=== PATIENT | female | born 1935 | race Caucasian/White ===

== ENCOUNTER 2017-01-20 14:22 | Emergency (ER) | payer OTHER ==
--- NOTE | 2017-01-20 15:55 | DIAGNOSTIC IMAGING REPORT ---
PROCEDURE: XR CHEST 2 VIEW INDICATION: CHEST PAIN TECHNIQUE: PA and lateral views. COMPARISON: Chest 08/08/2016 and 06/27/2016 FINDINGS: The cardiopulmonary contour and central vasculature are stable, within normal limits. The lungs are clear without focal consolidation, pleural effusion or pneumothorax. The interstitial markings are mildly coarse. There are surgical clips in the epigastric region. There is an old compression fracture of T12. IMPRESSION: 1. Cardiomegaly. No acute infiltrates.
--- NOTE | 2017-01-20 15:57 | DIAGNOSTIC IMAGING REPORT ---
PROCEDURE: XR THORACIC SPINE 3 VIEWS INDICATION: TRAUMA/INJURY TECHNIQUE: Three views. COMPARISON: None. FINDINGS: There is an old compression fracture of T12. No evidence of an acute process or fracture. IMPRESSION: 1. Old T12 compression fracture.
--- NOTE | 2017-01-20 18:30 | ED NURSING NOTES ---
Clinical Report - Nurses [facility] [address] [place] [address] 01/20/2017 14:23 Patient: TERI RAIMREZ TRIAGE Triage time 14:20. Acuity: LEVEL 3. Chief Complaint: FALL (Does not know what made her fall, no LOC, hit her mid back on a stool. Now c/o substernal chest pain). 14:36 01/20/17. SEPSIS SCREEN: Sepsis Screen. Negative (no infection suspected/documented). SOUTH COMA SCORE: [place] Coma Scale: 14- eyes open spontaneously (4); best verbal response- disoriented (4); best motor response- obeys commands (6). --14:42 Neil Read R.N. 14:26 01/20/17. BP: 131/81. HR: 102. RR: 20. O2 saturation: 94% on room air. Temp: 99.1 F (temporal). White-Calix pain scale: 6/10. Additional comments: BG= 118. --14:42 Neil Read R.N. Weight: 47.1 kg stated. Height/Length: 64 inches Per Patient. BMI: 17.8. --14:30 Neil Read R.N. Medications Nitroglycerin Translingual. --14:32 Neil Read R.N. Furosemide Oral. --14:32 Neil Read R.N. Warfarin Sodium Oral. --14:32 Neil Read R.N. Potassium Oral. --14:32 Neil Read R.N. Calcium + D Oral. --14:44 Neil Read R.N. Digoxin Oral (Tablet 125 mcg) 1 tablet, daily. MetFORMIN HCl Oral (Tablet 500 mg) 1/2 tablet, daily. Metoprolol Succinate ER Oral (Tablet Extended Release 24 Hour 50 mg) 1 tablet, am. Spiriva HandiHaler Inhalation, daily- (is taking twice a day most days). Vits, for eye bid. --14:45 Simbeck, Neil, R.N. Allergies Penicillin. --14:35 Neil Read R.N. Cortisone. --14:45 Neil Read R.N. History Arrived by EMS. Historian: EMS and patient. Location of injuries: mid-back. This occurred just prior to arrival. Occurred at home. Treatment INDIRECT SALES EXEC: None. Trauma activation: Pre-hospital notification of patient arrival was received. SOCIAL HX: Heavy tobacco smoker (cigarette)- less than 1 pack per day. No alcohol use or drug use. ABUSE ASSESSMENT: No report of abuse. --14:42 Neil Read R.N. PROBLEMS: GIB - ulcers. COPD - Chronic Obstructive Pulmonary Disease. Myocardial Infarction. Diverticulitis. Osteoporosis. CVA - Cerebrovascular Accident. Atrial Fibrillation. Congestive Heart Failure. --14:35 Neil Read R.N. Coumadin Toxicity. Atypical Chest Pain. Near Syncope. Arrhythmia. Syncope. [place]. Peptic Ulcer Disease. --14:43 Neil Read R.N. Diabetes Mellitus. --14:44 Neil Read R.N. ADDITIONAL SURGERIES: Appendectomy. Carpal Tunnel Surgery. Hysterectomy. Knee Surgery. --14:44 Neil Read R.N. Interventions ID band on patient. To treatment room. --14:42 Neil Read R.N. PHYSICAL ASSESSMENT 14:53 01/20/17. To room via stretcher. GENERAL / NEURO / PSYCH: Alert. Appears in pain and anxious. The patient is disoriented to person, place and situation. She has had weakness. HEENT: Pupils equal, round and reactive to light. Head non-tender. ( dry oral membranes). RESPIRATORY: Respirations not labored. Breath sounds within normal limits. ( epigastric and substernal chest pain). CVS: Cardiac rhythm: atrial fibrillation with rapid ventricular response. Pulses within normal limits. Capillary refill less than 2 seconds. GI / : Abdomen soft and nontender. EXTREMITIES: Limited ROM present. Neuro-vascular status intact to the extremity. SKIN: Skin is warm and dry. ( poor turgor, dry skin). --14:53 Neil Read R.N. NURSING PROGRESS NOTES 14:46 01/20/17. Cardiac rhythm: atrial fibrillation with rapid ventricular response. Patient gowned. Reassurance given. Call light placed in reach. Side rails up x 2. Bed placed in lowest position. Brakes of bed on. Patient ready for evaluation- chart flagged. ( family at bedside). --14:46 Neil Read R.N. EKG time: (14:47). EKG was performed by a tech and shown to the ED physician. --14:59 Violetta Landers 15:46 01/20/2017 GI COCKTAIL WHITE (Simethicone) PO Oral Suspension 50 mL given. Allergies verified and confirmed 5 rights. --15:46 Neil Read R.N. Checked patient name and birthdate: patient confirmed. Blood samples drawn from the right antecubital space with syringe and 23g butterfly by tech per protocol ; labeled in presence of the patient and sent to lab: rainbow set: cardiac enzymes (1st set). --15:55 Graeme Batista 17:46 01/20/2017 Protonix (Pantoprazole Sodium) PO Tablets 40 mg given. Allergies verified and confirmed 5 rights. --17:46 Kristin Alvarenga R.N. 17:48 01/20/2017 Carafate (Sucralfate) PO Oral Suspension 2 gm given. Allergies verified and confirmed 5 rights. --17:48 Kristin Alvarenga R.N. 18:34 01/20/17. ( Walk test done, Walked patient about 50 ft, while ambulating without walker she was slightly unsteady and required close supervision, with FWW she was much more steady and was safely ambulating. Patient has FWW walker in home to use and admits she does not use it at home. She states she will be more compliant now.). --18:34 Kristin Alvarenga R.N. DISPOSITION / DISCHARGE 18:51 01/20/17. Condition at departure: improved. No learning barriers present. Discharge instructions provided and reviewed with the patient and family. Reviewed medication(s) side effects and precautions information. Prescription(s) given to the patient. Activity restrictions reviewed (Note given to take it easy for the next couple days). Patient verbalized understanding. The patient was discharged by the physician. She was discharged home and accompanied by family. She left the Emergency Department ambulatory and via private vehicle. Family member driving. --18:51 Kristin Alvarenga R.N. 18:48 01/20/17. BP: 98/53 (regular adult cuff) taken on the right arm, while lying. HR: 65 (regular). RR: 20. O2 saturation: 97% on room air. Temp: 98 F (oral). Pain level now: 0/10. --18:51 Kristin Alvarenga R.N. Departure time: 18:54 Jan 20 2017. --18:54 Kristin Alvarenga R.N. Locked/Released at 01/20/2017 19:02 by Kristin Alvarenga R.N.
--- NOTE | 2017-01-20 18:30 | ED NURSING NOTES ---
Clinical Report - Nurses [facility] [address] [place] [address] 01/20/2017 14:23 Patient: TERI RAMIREZ TRIAGE Triage time 14:20. Acuity: LEVEL 3. Chief Complaint: FALL (Does not know what made her fall, no LOC, hit her mid back on a stool. Now c/o substernal chest pain). 14:36 01/20/17. SEPSIS SCREEN: Sepsis Screen. Negative (no infection suspected/documented). SOUTH COMA SCORE: [place] Coma Scale: 14- eyes open spontaneously (4); best verbal response- disoriented (4); best motor response- obeys commands (6). --14:42 Neil Read R.N. 14:26 01/20/17. BP: 131/81. HR: 102. RR: 20. O2 saturation: 94% on room air. Temp: 99.1 F (temporal). White-Calix pain scale: 6/10. Additional comments: BG= 118. --14:42 Neil Read R.N. Weight: 47.1 kg stated. Height/Length: 64 inches Per Patient. BMI: 17.8. --14:30 Neil Read R.N. Medications Nitroglycerin Translingual. --14:32 Neil Read R.N. Furosemide Oral. --14:32 Neil Read R.N. Warfarin Sodium Oral. --14:32 Neil Read R.N. Potassium Oral. --14:32 Neil Read R.N. Calcium + D Oral. --14:44 Neil Read R.N. Digoxin Oral (Tablet 125 mcg) 1 tablet, daily. MetFORMIN HCl Oral (Tablet 500 mg) 1/2 tablet, daily. Metoprolol Succinate ER Oral (Tablet Extended Release 24 Hour 50 mg) 1 tablet, am. Spiriva HandiHaler Inhalation, daily- (is taking twice a day most days). Vits, for eye bid. --14:45 Simbeck, Neil, R.N. Allergies Penicillin. --14:35 Neil Read R.N. Cortisone. --14:45 Neil Read R.N. History Arrived by EMS. Historian: EMS and patient. Location of injuries: mid-back. This occurred just prior to arrival. Occurred at home. Treatment STOGIE PACKER: None. Trauma activation: Pre-hospital notification of patient arrival was received. SOCIAL HX: Heavy tobacco smoker (cigarette)- less than 1 pack per day. No alcohol use or drug use. ABUSE ASSESSMENT: No report of abuse. --14:42 Neil Read R.N. PROBLEMS: GIB - ulcers. COPD - Chronic Obstructive Pulmonary Disease. Myocardial Infarction. Diverticulitis. Osteoporosis. CVA - Cerebrovascular Accident. Atrial Fibrillation. Congestive Heart Failure. --14:35 Neil Read R.N. Coumadin Toxicity. Atypical Chest Pain. Near Syncope. Arrhythmia. Syncope. [place]. Peptic Ulcer Disease. --14:43 Neil Read R.N. Diabetes Mellitus. --14:44 Neil Read R.N. ADDITIONAL SURGERIES: Appendectomy. Carpal Tunnel Surgery. Hysterectomy. Knee Surgery. --14:44 Neil Read R.N. Interventions ID band on patient. To treatment room. --14:42 Neil Read R.N. PHYSICAL ASSESSMENT 14:53 01/20/17. To room via stretcher. GENERAL / NEURO / PSYCH: Alert. Appears in pain and anxious. The patient is disoriented to person, place and situation. She has had weakness. HEENT: Pupils equal, round and reactive to light. Head non-tender. ( dry oral membranes). RESPIRATORY: Respirations not labored. Breath sounds within normal limits. ( epigastric and substernal chest pain). CVS: Cardiac rhythm: atrial fibrillation with rapid ventricular response. Pulses within normal limits. Capillary refill less than 2 seconds. GI / : Abdomen soft and nontender. EXTREMITIES: Limited ROM present. Neuro-vascular status intact to the extremity. SKIN: Skin is warm and dry. ( poor turgor, dry skin). --14:53 Neil Read R.N. NURSING PROGRESS NOTES 14:46 01/20/17. Cardiac rhythm: atrial fibrillation with rapid ventricular response. Patient gowned. Reassurance given. Call light placed in reach. Side rails up x 2. Bed placed in lowest position. Brakes of bed on. Patient ready for evaluation- chart flagged. ( family at bedside). --14:46 Neil Read R.N. EKG time: (14:47). EKG was performed by a tech and shown to the ED physician. --14:59 Violetta Landers 15:46 01/20/2017 GI COCKTAIL WHITE (Simethicone) PO Oral Suspension 50 mL given. Allergies verified and confirmed 5 rights. --15:46 Neil Read R.N. Checked patient name and birthdate: patient confirmed. Blood samples drawn from the right antecubital space with syringe and 23g butterfly by tech per protocol ; labeled in presence of the patient and sent to lab: rainbow set: cardiac enzymes (1st set). --15:55 Graeme Batista 17:46 01/20/2017 Protonix (Pantoprazole Sodium) PO Tablets 40 mg given. Allergies verified and confirmed 5 rights. --17:46 Kristin Alvarenga R.N. 17:48 01/20/2017 Carafate (Sucralfate) PO Oral Suspension 2 gm given. Allergies verified and confirmed 5 rights. --17:48 Kristin Alvarenga R.N. 18:34 01/20/17. ( Walk test done, Walked patient about 50 ft, while ambulating without walker she was slightly unsteady and required close supervision, with FWW she was much more steady and was safely ambulating. Patient has FWW walker in home to use and admits she does not use it at home. She states she will be more compliant now.). --18:34 Kristin Alvarenga R.N. DISPOSITION / DISCHARGE 18:51 01/20/17. Condition at departure: improved. No learning barriers present. Discharge instructions provided and reviewed with the patient and family. Reviewed medication(s) side effects and precautions information. Prescription(s) given to the patient. Activity restrictions reviewed (Note given to take it easy for the next couple days). Patient verbalized understanding. The patient was discharged by the physician. She was discharged home and accompanied by family. She left the Emergency Department ambulatory and via private vehicle. Family member driving. --18:51 Kristin Alvarenga R.N. 18:48 01/20/17. BP: 98/53 (regular adult cuff) taken on the right arm, while lying. HR: 65 (regular). RR: 20. O2 saturation: 97% on room air. Temp: 98 F (oral). Pain level now: 0/10. --18:51 Kristin Alvarenga R.N. Departure time: 18:54 Jan 20 2017. --18:54 Kristin Alvarenga R.N. Locked/Released at 01/20/2017 19:02 by Kristin Alvarenga R.N.
--- NOTE | 2017-01-20 18:30 | ED CLINICAL REPORT ---
Clinical Report - Physicians/Mid Levels [facility] [address] [place] [address] 01/20/2017 14:23 Patient: TERI RAMIREZ Time Seen: 14:27. Arrived- By private vehicle. Historian- patient. CPT: ER phys charges level 4 (#[id number]). HISTORY OF PRESENT ILLNESS Chief Complaint: INJURY TO MID- BACK. Location of injuries- mid back. The injury occurred just prior to arrival. Fell while standing and landed on the ground; tripped. Occurred at home. The patient complains of moderate pain. No blow to the head, neck pain or loss of consciousness. REVIEW OF SYSTEMS No numbness, dizziness, difficulty breathing, weakness or headache. No nausea, abdominal pain, laceration, fever or vomiting. She has had central chest pain but no pain on weight bearing. All systems otherwise negative, except as recorded above. PAST HISTORY See nurses notes. GIB - ulcers. COPD - Chronic Obstructive Pulmonary Disease. Myocardial Infarction. Diverticulitis. Osteoporosis. CVA - Cerebrovascular Accident. Atrial Fibrillation. Congestive Heart Failure. --14:35 Coumadin Toxicity. Atypical Chest Pain. Near Syncope. Arrhythmia. Syncope. [place]. Peptic Ulcer Disease. --14:43 Simbeck, Diabetes Mellitus. --14:44 ADDITIONAL SURGERIES: Appendectomy. Carpal Tunnel Surgery. Hysterectomy. Knee Surgery. Medications: Digoxin Oral (Tablet 125 mcg) 1 tablet, daily. MetFORMIN HCl Oral (Tablet 500 mg) 1/2 tablet, daily. Metoprolol Succinate ER Oral (Tablet Extended Release 24 Hour 50 mg) 1 tablet, am. Spiriva HandiHaler Inhalation, daily- (is taking twice a day most days). Vits, for eye bid. Calcium + D Oral. Potassium Oral. Warfarin Sodium Oral. Furosemide Oral. Nitroglycerin Translingual. Allergies: Cortisone. Penicillin. SOCIAL HISTORY Heavy tobacco smoker (cigarette)- less than 1 pack per day. No alcohol use or drug use. ADDITIONAL NOTES The nursing notes have been reviewed. PHYSICAL EXAM Vital Signs: 01/20/2017 14:26 BP: 131/81. HR: 102. RR: 20. O2 saturation: 94%. Temp: 99.1 F. White-Calix pain scale: 6/10. Appearance: Alert. Patient in mild distress. Head: Head non-tender. No swelling of head. Eyes: Pupils equal, round and reactive to light. ENT: Pharynx normal. Neck: Painless ROM. Non-tender. CVS: 1/6 brief systolic murmur. Pulses normal. Respiratory: Breath sounds normal. Chest nontender. Abdomen: Soft. Moderate tenderness in the epigastric area with guarding present. Bowel sounds normal. Back: Moderate vertebral point tenderness over the mid thoracic spine. Skin: Skin intact. Skin warm. Normal skin color. Extremities: Normal inspection. Pelvis stable. Extremities atraumatic. Neuro: Oriented X 3. No motor deficit. No sensory deficit. LABS, X-RAYS, AND EKG EKG: Rate: 110. Atrial fibrillation. Normal QRS complex. Normal axis. Non-specific ST segment / T wave abnormalities. Prior EKG unavailable. The study has been interpreted contemporaneously. The study has been independently viewed by me. The EKG appears to be a good tracing. X-Rays: Chest X-ray negative. T-Spine X-rays: Moderate wedge compression fracture of T12 (Old). Views: 2 view T-spine series. Technique: good. The X-rays were independently viewed by me and interpreted by the radiologist. PROGRESS AND PROCEDURES Course of Care: White GI cocktail : Chest and epigastric pain resolved. 17:25 01/20/17. Awaiting urine collection Pt passed walk test with walker. Patient/family counseled. Disposition: Discharged. Condition: stable. CLINICAL IMPRESSION Fall on same level by tripping. Chronic unsteady gait. Back pain due to fall. Chronic T-12 compression fracture. INSTRUCTIONS No strenuous activity. (Use walker at all times.). Warnings: GENERAL WARNINGS: Return or contact your physician immediately if your condition worsens or changes unexpectedly, if not improving as expected, or if other problems arise. Your Current Medications: CONTINUE TAKING THE FOLLOWING MEDICATIONS: Calcium + D Oral. Digoxin Oral : Tablet 125 mcg, 1 tablet daily. Furosemide Oral. MetFORMIN HCl Oral : Tablet 500 mg, 1/2 tablet daily. Metoprolol Succinate ER Oral : Tablet Extended Release 24 Hour 50 mg, 1 tablet am. Nitroglycerin Translingual. Potassium Oral. Spiriva HandiHaler Inhalation : daily-, is taking twice a day most days. Vits, for eye bid*. Warfarin Sodium Oral. Prescription Medications: Hydrocodone/APAP 5mg / 325mg: take 1 orally every 8 hours as needed for pain. Dispense ten (10). No refill. Follow-up: Follow up with your doctor in one week. Call for an appointment. Understanding of the discharge instructions verbalized by patient and family. Discharge instructions reviewed with and understanding was verbalized by patient and guardian (Daughter). (Electronically signed by Yossi Eubanks MD 01/20/2017 20:08)
--- NOTE | 2017-01-20 18:30 | ED ORDER SUMMARY ---
..... Patient: TERI RAMIREZ OrderSheet [facility] VisitID: [id number] [address] [place] [address] 81y, F Registration Date/Time: 01/20/2017 ORDER SHEET Weight: 47.1 kg (stated) Allergies: Penicillin, Cortisone GENERAL ORDERS: EKG - ER Stat (14:53 01/20/2017 LAYAimbeck R.N. per protocol) (14:53 JSimbeck R.N.) Thoracic Spine 3V Urgent (15:18 01/20/2017 Bailey MORALES) (Ack 15:23 Ricci) (15:47 LAYAimbeck R.N.) Chest 2V Urgent (15:18 01/20/2017 Bailey MORALES) (Ack 15:23 Ricci) (15:47 JSimbeck R.N.) CBC w Diff Urgent (15:18 01/20/2017 Bailey MORALES) (Ack 15:23 Ricci) (15:54 LTapper) CMP Urgent (15:18 01/20/2017 Bailey MORALES) (Ack 15:23 Ricci) (15:54 LTapper) UA-Culture if indicated Urgent (15:18 01/20/2017 Bailey MORALES) (Ack 15:23 Ricci) (15:54 LTapper) - (Walk test) (18:15 01/20/2017 Bailey MORALES) (18:35 JSanders R.N.) PT with INR Urgent (18:28 01/20/2017 Bailey MORALES) (Ack 18:41 Ricci) (19:02 JSanders R.N.) Digoxin Level Urgent (18:28 01/20/2017 Bailey MORALES) (Ack 18:41 Ricci) (19:02 JSanders R.N.) MEDICATION ORDERS: GI Cocktail WHITE PO 50 mL (NOW) (15:19 01/20/2017 Bailey MORALES) (15:46 JSimbeck R.N.) Carafate PO 20 ml (NOW) (17:25 01/20/2017 Bailey MORALES) (17:48 JSanders R.N.) Protonix PO 40 mg (NOW) (17:25 01/20/2017 Bailey MORALES) (17:46 Kelly Claire) IV FLUIDS: ORDER SHEET NOTES: [Electronically signed by Kristin Alvarenga R.N. (19:02 01/20/2017)] [Electronically signed by Yossi Eubakns MD (20:08 01/20/2017)] [Electronically locked/signed by Kristin Alvarenga R.N. (19:01/20/2017)]
--- NOTE | 2017-01-20 18:30 | ED CLINICAL REPORT ---
Clinical Report - Physicians/Mid Levels [facility] [address] [place] [address] 01/20/2017 14:23 Patient: TERI RAMIREZ Time Seen: 14:27. Arrived- By private vehicle. Historian- patient. CPT: ER phys charges level 4 (#[id number]). HISTORY OF PRESENT ILLNESS Chief Complaint: INJURY TO MID- BACK. Location of injuries- mid back. The injury occurred just prior to arrival. Fell while standing and landed on the ground; tripped. Occurred at home. The patient complains of moderate pain. No blow to the head, neck pain or loss of consciousness. REVIEW OF SYSTEMS No numbness, dizziness, difficulty breathing, weakness or headache. No nausea, abdominal pain, laceration, fever or vomiting. She has had central chest pain but no pain on weight bearing. All systems otherwise negative, except as recorded above. PAST HISTORY See nurses notes. GIB - ulcers. COPD - Chronic Obstructive Pulmonary Disease. Myocardial Infarction. Diverticulitis. Osteoporosis. CVA - Cerebrovascular Accident. Atrial Fibrillation. Congestive Heart Failure. --14:35 Coumadin Toxicity. Atypical Chest Pain. Near Syncope. Arrhythmia. Syncope. [place]. Peptic Ulcer Disease. --14:43 Simbeck, Diabetes Mellitus. --14:44 ADDITIONAL SURGERIES: Appendectomy. Carpal Tunnel Surgery. Hysterectomy. Knee Surgery. Medications: Digoxin Oral (Tablet 125 mcg) 1 tablet, daily. MetFORMIN HCl Oral (Tablet 500 mg) 1/2 tablet, daily. Metoprolol Succinate ER Oral (Tablet Extended Release 24 Hour 50 mg) 1 tablet, am. Spiriva HandiHaler Inhalation, daily- (is taking twice a day most days). Vits, for eye bid. Calcium + D Oral. Potassium Oral. Warfarin Sodium Oral. Furosemide Oral. Nitroglycerin Translingual. Allergies: Cortisone. Penicillin. SOCIAL HISTORY Heavy tobacco smoker (cigarette)- less than 1 pack per day. No alcohol use or drug use. ADDITIONAL NOTES The nursing notes have been reviewed. PHYSICAL EXAM Vital Signs: 01/20/2017 14:26 BP: 131/81. HR: 102. RR: 20. O2 saturation: 94%. Temp: 99.1 F. White-Calix pain scale: 6/10. Appearance: Alert. Patient in mild distress. Head: Head non-tender. No swelling of head. Eyes: Pupils equal, round and reactive to light. ENT: Pharynx normal. Neck: Painless ROM. Non-tender. CVS: 1/6 brief systolic murmur. Pulses normal. Respiratory: Breath sounds normal. Chest nontender. Abdomen: Soft. Moderate tenderness in the epigastric area with guarding present. Bowel sounds normal. Back: Moderate vertebral point tenderness over the mid thoracic spine. Skin: Skin intact. Skin warm. Normal skin color. Extremities: Normal inspection. Pelvis stable. Extremities atraumatic. Neuro: Oriented X 3. No motor deficit. No sensory deficit. LABS, X-RAYS, AND EKG EKG: Rate: 110. Atrial fibrillation. Normal QRS complex. Normal axis. Non-specific ST segment / T wave abnormalities. Prior EKG unavailable. The study has been interpreted contemporaneously. The study has been independently viewed by me. The EKG appears to be a good tracing. X-Rays: Chest X-ray negative. T-Spine X-rays: Moderate wedge compression fracture of T12 (Old). Views: 2 view T-spine series. Technique: good. The X-rays were independently viewed by me and interpreted by the radiologist. PROGRESS AND PROCEDURES Course of Care: White GI cocktail : Chest and epigastric pain resolved. 17:25 01/20/17. Awaiting urine collection Pt passed walk test with walker. Patient/family counseled. Disposition: Discharged. Condition: stable. CLINICAL IMPRESSION Fall on same level by tripping. Chronic unsteady gait. Back pain due to fall. Chronic T-12 compression fracture. INSTRUCTIONS No strenuous activity. (Use walker at all times.). Warnings: GENERAL WARNINGS: Return or contact your physician immediately if your condition worsens or changes unexpectedly, if not improving as expected, or if other problems arise. Your Current Medications: CONTINUE TAKING THE FOLLOWING MEDICATIONS: Calcium + D Oral. Digoxin Oral : Tablet 125 mcg, 1 tablet daily. Furosemide Oral. MetFORMIN HCl Oral : Tablet 500 mg, 1/2 tablet daily. Metoprolol Succinate ER Oral : Tablet Extended Release 24 Hour 50 mg, 1 tablet am. Nitroglycerin Translingual. Potassium Oral. Spiriva HandiHaler Inhalation : daily-, is taking twice a day most days. Vits, for eye bid*. Warfarin Sodium Oral. Prescription Medications: Hydrocodone/APAP 5mg / 325mg: take 1 orally every 8 hours as needed for pain. Dispense ten (10). No refill. Follow-up: Follow up with your doctor in one week. Call for an appointment. Understanding of the discharge instructions verbalized by patient and family. Discharge instructions reviewed with and understanding was verbalized by patient and guardian (Daughter). (Electronically signed by Yossi Eubanks MD 01/20/2017 20:08)
--- NOTE | 2017-01-20 18:30 | ED ORDER SUMMARY ---
..... Patient: TERI RAMIREZ OrderSheet [facility] VisitID: [id number] [address] [place] [address] 81y, F Registration Date/Time: 01/20/2017 ORDER SHEET Weight: 47.1 kg (stated) Allergies: Penicillin, Cortisone GENERAL ORDERS: EKG - ER Stat (14:53 01/20/2017 LAYAimbeck R.N. per protocol) (14:53 JSimbeck R.N.) Thoracic Spine 3V Urgent (15:18 01/20/2017 Bailey MORALES) (Ack 15:23 Ricci) (15:47 LAYAimbeck R.N.) Chest 2V Urgent (15:18 01/20/2017 Bailey MORALES) (Ack 15:23 Ricci) (15:47 JSimbeck R.N.) CBC w Diff Urgent (15:18 01/20/2017 Bailey MORALES) (Ack 15:23 Ricci) (15:54 LTapper) CMP Urgent (15:18 01/20/2017 Bailey MORALES) (Ack 15:23 Ricci) (15:54 LTapper) UA-Culture if indicated Urgent (15:18 01/20/2017 Bailey MORALES) (Ack 15:23 Ricci) (15:54 LTapper) - (Walk test) (18:15 01/20/2017 Bailey MORALES) (18:35 JSanders R.N.) PT with INR Urgent (18:28 01/20/2017 Bailey MORALES) (Ack 18:41 Ricci) (19:02 JSanders R.N.) Digoxin Level Urgent (18:28 01/20/2017 Bailey MORALES) (Ack 18:41 Ricci) (19:02 JSanders R.N.) MEDICATION ORDERS: GI Cocktail WHITE PO 50 mL (NOW) (15:19 01/20/2017 Bailey MORALES) (15:46 JSimbeck R.N.) Carafate PO 20 ml (NOW) (17:25 01/20/2017 Bailey MORALES) (17:48 JSanders R.N.) Protonix PO 40 mg (NOW) (17:25 01/20/2017 Bailey MORALES) (17:46 Kelly Claire) IV FLUIDS: ORDER SHEET NOTES: [Electronically signed by Kristin Alvarenga R.N. (19:02 01/20/2017)] [Electronically signed by Yossi Eubanks MD (20:08 01/20/2017)] [Electronically locked/signed by Kristin Alvarenga R.N. (19:01/20/2017)]
--- NOTE | 2017-01-20 20:08 | ED MED RECONCILIATION SUMMARY ---
Patient: TERI RAMIREZ Medication Reconciliation Report [facility] VisitID: [id number] [address] [place] [address] 81y, F Registration Date/Time: 01/20/2017 Weight: 47.1 kg Height/Length: 64 in. BMI: 17.8 ALLERGIES: Cortisone, Penicillin The patient's Home Medications are listed below: CONTINUE TAKING THE FOLLOWING MEDICATIONS: Calcium + D Oral Digoxin Oral (125 mcg) 1 tablet, daily Furosemide Oral MetFORMIN HCl Oral (500 mg) 1/2 tablet, daily Metoprolol Succinate ER Oral (50 mg) 1 tablet, am Nitroglycerin Translingual Potassium Oral Spiriva HandiHaler Inhalation, daily-, is taking twice a day most days Vits, for eye bid Warfarin Sodium Oral The source(s) of the original Home Medication information: Not obtained. The following Medications were given to the patient in the Emergency Department: GI COCKTAIL WHITE [PO] PO 50 mL, administered: 01/20/2017 3:46:00 PM Protonix [PO] PO 40 mg, administered: 01/20/2017 5:46:00 PM Carafate [PO] PO 2 gm, administered: 01/20/2017 5:48:00 PM The following Medications were prescribed to the patient: Hydrocodone/APAP 5mg / 325mg: take 1 orally every 8 hours as needed for pain. Dispense ten (10). No refill. -- Yossi Eubanks MD
--- NOTE | 2017-01-20 20:08 | ED MED RECONCILIATION SUMMARY ---
Patient: TERI RAMIREZ Medication Reconciliation Report [facility] VisitID: [id number] [address] [place] [address] 81y, F Registration Date/Time: 01/20/2017 Weight: 47.1 kg Height/Length: 64 in. BMI: 17.8 ALLERGIES: Cortisone, Penicillin The patient's Home Medications are listed below: CONTINUE TAKING THE FOLLOWING MEDICATIONS: Calcium + D Oral Digoxin Oral (125 mcg) 1 tablet, daily Furosemide Oral MetFORMIN HCl Oral (500 mg) 1/2 tablet, daily Metoprolol Succinate ER Oral (50 mg) 1 tablet, am Nitroglycerin Translingual Potassium Oral Spiriva HandiHaler Inhalation, daily-, is taking twice a day most days Vits, for eye bid Warfarin Sodium Oral The source(s) of the original Home Medication information: Not obtained. The following Medications were given to the patient in the Emergency Department: GI COCKTAIL WHITE [PO] PO 50 mL, administered: 01/20/2017 3:46:00 PM Protonix [PO] PO 40 mg, administered: 01/20/2017 5:46:00 PM Carafate [PO] PO 2 gm, administered: 01/20/2017 5:48:00 PM The following Medications were prescribed to the patient: Hydrocodone/APAP 5mg / 325mg: take 1 orally every 8 hours as needed for pain. Dispense ten (10). No refill. -- Yossi Eubanks MD
--- NOTE | 2017-01-20 20:08 | ED DISCHARGE INSTRUCTIONS ---
Patient: TERI RAMIREZ General Instructions [facility] VisitID: [id number] [address] [place] [address] 81y, F Registration Date/Time: 01/20/2017 Fall on same level by tripping. Chronic unsteady gait. Back pain due to fall. Chronic T-12 compression fracture. INSTRUCTIONS No strenuous activity. (Use walker at all times.). Warnings: GENERAL WARNINGS: Return or contact your physician immediately if your condition worsens or changes unexpectedly, if not improving as expected, or if other problems arise. Your Current Medications: CONTINUE TAKING THE FOLLOWING MEDICATIONS: Calcium + D Oral. Digoxin Oral : Tablet 125 mcg, 1 tablet daily. Furosemide Oral. MetFORMIN HCl Oral : Tablet 500 mg, 1/2 tablet daily. Metoprolol Succinate ER Oral : Tablet Extended Release 24 Hour 50 mg, 1 tablet am. Nitroglycerin Translingual. Potassium Oral. Spiriva HandiHaler Inhalation : daily-, is taking twice a day most days. Vits, for eye bid*. Warfarin Sodium Oral. Prescription Medications: Hydrocodone/APAP 5mg / 325mg: take 1 orally every 8 hours as needed for pain. Dispense ten (10). No refill. Follow-up: Follow up with your doctor in one week. Call for an appointment. Understanding of the discharge instructions verbalized by patient and family. Discharge instructions reviewed with and understanding was verbalized by patient and guardian (Daughter). ADDITIONAL INFORMATION Mechanical Fall You have had a fall today. It appears that the cause is mechanical. That means that you slipped, tripped or lost your balance. If your fall had been due to fainting or a seizure, further tests would be required. Home Care: Rest today and resume your normal activities when you are feeling back to normal. If you were injured during the fall, follow the advice from your doctor regarding care of your injury. You may use acetaminophen (Tylenol) or ibuprofen (Motrin, Advil) to control pain, unless another pain medicine was prescribed. [NOTE: If you have chronic liver or kidney disease or ever had a stomach ulcer or GI bleeding, talk with your doctor before using these medicines.] Fall Prevention: Was there anything that caused your fall that can be fixed, removed, or replaced? Make your home safe by keeping walkways clear of objects you may trip over. Use non-slip pads under rugs. Do not walk in poorly lit areas. Do not stand on chairs or wobbly ladders. Use caution when reaching overhead or looking upward. This position can cause a loss of balance. Be sure your shoes fit properly, have non-slip bottoms and are in good condition. Be cautious when going up and down curbs, and walking on uneven sidewalks. If your balance is poor, consider using a cane or walker. Stay as active as you can. Balance, flexibility, strength, and endurance all come from exercise. They all play a role in preventing falls. Follow Up with your doctor or as advised by our staff. Get Prompt Medical Attention if any of the following occur: Repeated mechanical falls, or unexplained falls Dizziness, fainting or seizure Severe headache Chest pain or shortness of breath Palpitations (very rapid or very slow or irregular heartbeat) Blood in vomit, stools (black or red color) Weakness of an arm or leg or one side of the face Difficulty with speech or vision Hydrocodone Bitartrate, Acetaminophen Oral tablet What is this medicine? ACETAMINOPHEN; HYDROCODONE (a set a STONEY malena fen; christiano droe KOE done) is a pain reliever. It is used to treat mild to moderate pain. How should I use this medicine? Take this medicine by mouth. Swallow it with a full glass of water. Follow the directions on the prescription label. If the medicine upsets your stomach, take the medicine with food or milk. Do not take more than you are told to take. Talk to your acquisition marketing coordinator regarding the use of this medicine in children. This medicine is not approved for use in children. What side effects may I notice from receiving this medicine? Side effects that you should report to your doctor or health palliative care nurse practitioner as soon as possible: allergic reactions like skin rash, itching or hives, swelling of the face, lips, or tongue breathing problems confusion feeling faint or lightheaded, falls stomach pain yellowing of the eyes or skin Side effects that usually do not require medical attention (report to your doctor or health palliative care nurse practitioner if they continue or are bothersome): nausea, vomiting stomach upset What may interact with this medicine? alcohol antihistamines isoniazid medicines for depression, anxiety, or psychotic disturbances medicines for sleep muscle relaxants naltrexone narcotic medicines (opiates) for pain phenobarbital ritonavir tramadol What if I miss a dose? If you miss a dose, take it as soon as you can. If it is almost time for your next dose, take only that dose. Do not take double or extra doses. Where should I keep my medicine? Keep out of the reach of children. This medicine can be abused. Keep your medicine in a safe place to protect it from theft. Do not share this medicine with anyone. Selling or giving away this medicine is dangerous and against the law. Store at room temperature between 15 and 30 degrees C (59 and 86 degrees F). Protect from light. Keep container tightly closed. Throw away any unused medicine after the expiration date. Discard unused medicine and used packaging carefully. Pets and children can be harmed if they find used or lost packages. What should I tell my health care provider before I take this medicine? They need to know if you have any of these conditions: brain tumor Crohn's disease, inflammatory bowel disease, or ulcerative colitis drink more than 3 alcohol-containing drinks per day drug abuse or addiction head injury heart or circulation problems kidney disease or problems going to the bathroom liver disease lung disease, asthma, or breathing problems an unusual or allergic reaction to acetaminophen, hydrocodone, other opioid analgesics, other medicines, foods, dyes, or preservatives or trying to get breast-feeding What should I watch for while using this medicine? Tell your doctor or health palliative care nurse practitioner if your pain does not go away, if it gets worse, or if you have new or a different type of pain. You may develop tolerance to the medicine. Tolerance means that you will need a higher dose of the medicine for pain relief. Tolerance is normal and is expected if you take the medicine for a long time. Do not suddenly stop taking your medicine because you may develop a severe reaction. Your body becomes used to the medicine. This does NOT mean you are addicted. Addiction is a behavior related to getting and using a drug for a non-medical reason. If you have pain, you have a medical reason to take pain medicine. Your doctor will tell you how much medicine to take. If your doctor wants you to stop the medicine, the dose will be slowly lowered over time to avoid any side effects. You may get drowsy or dizzy when you first start taking the medicine or change doses. Do not drive, use machinery, or do anything that may be dangerous until you know how the medicine affects you. Stand or sit up slowly. There are different types of narcotic medicines (opiates) for pain. If you take more than one type at the same time, you may have more side effects. Give your health care provider a list of all medicines you use. Your doctor will tell you how much medicine to take. Do not take more medicine than directed. Call emergency for help if you have problems breathing. The medicine will cause constipation. Try to have a bowel movement at least every 2 to 3 days. If you do not have a bowel movement for 3 days, call your doctor or health palliative care nurse practitioner. Too much acetaminophen can be very dangerous. Do not take Tylenol (acetaminophen) or medicines that contain acetaminophen with this medicine. Many non-prescription medicines contain acetaminophen. Always read the labels carefully. You have been given the following additional information: Fall, Mechanical Hydrocodone Bitartrate, Acetaminophen Oral tablet No strenuous activity. (Electronically signed by Yossi Eubanks MD 01/20/2017 20:08)
--- NOTE | 2017-01-20 20:08 | ED MAR SUMMARY ---
..... Medication Administration Record [facility] [address] [place] [address] Patient: TERI RAMIREZ Visit ID: [id number] 81y, F Weight: 47.1 kg Height/Length: 64 in BMI: 17.8 ALLERGIES: Penicillin, Cortisone Given 15:46 01/20/2017 Neil Read R.N. Medication Administered: GI COCKTAIL WHITE [PO] (SIMETHICONE), Dose: 50 mL Oral Suspension PO. Medication Ordered: GI Cocktail WHITE PO 50 mL (NOW). Given 17:46 01/20/2017 Kristin Alvarenga R.N. Medication Administered: PROTONIX [PO] (PANTOPRAZOLE SODIUM), Dose: 40 mg Tablets PO. Medication Ordered: Protonix PO 40 mg (NOW). Given 17:48 01/20/2017 Kristin Alvarenga R.N. Medication Administered: CARAFATE [PO] (SUCRALFATE), Dose: 2 gm Oral Suspension PO. Medication Ordered: Carafate PO 20 ml (NOW).
--- NOTE | 2017-01-20 20:08 | ED MAR SUMMARY ---
..... Medication Administration Record [facility] [address] [place] [address] Patient: TERI RAMIREZ Visit ID: [id number] 81y, F Weight: 47.1 kg Height/Length: 64 in BMI: 17.8 ALLERGIES: Penicillin, Cortisone Given 15:46 01/20/2017 Neil Read R.N. Medication Administered: GI COCKTAIL WHITE [PO] (SIMETHICONE), Dose: 50 mL Oral Suspension PO. Medication Ordered: GI Cocktail WHITE PO 50 mL (NOW). Given 17:46 01/20/2017 Kristin Alvarenga R.N. Medication Administered: PROTONIX [PO] (PANTOPRAZOLE SODIUM), Dose: 40 mg Tablets PO. Medication Ordered: Protonix PO 40 mg (NOW). Given 17:48 01/20/2017 Kristin Alvarenga R.N. Medication Administered: CARAFATE [PO] (SUCRALFATE), Dose: 2 gm Oral Suspension PO. Medication Ordered: Carafate PO 20 ml (NOW).
--- NOTE | 2017-01-20 20:08 | ED DISCHARGE INSTRUCTIONS ---
Patient: TERI RAMIREZ General Instructions [facility] VisitID: [id number] [address] [place] [address] 81y, F Registration Date/Time: 01/20/2017 Fall on same level by tripping. Chronic unsteady gait. Back pain due to fall. Chronic T-12 compression fracture. INSTRUCTIONS No strenuous activity. (Use walker at all times.). Warnings: GENERAL WARNINGS: Return or contact your physician immediately if your condition worsens or changes unexpectedly, if not improving as expected, or if other problems arise. Your Current Medications: CONTINUE TAKING THE FOLLOWING MEDICATIONS: Calcium + D Oral. Digoxin Oral : Tablet 125 mcg, 1 tablet daily. Furosemide Oral. MetFORMIN HCl Oral : Tablet 500 mg, 1/2 tablet daily. Metoprolol Succinate ER Oral : Tablet Extended Release 24 Hour 50 mg, 1 tablet am. Nitroglycerin Translingual. Potassium Oral. Spiriva HandiHaler Inhalation : daily-, is taking twice a day most days. Vits, for eye bid*. Warfarin Sodium Oral. Prescription Medications: Hydrocodone/APAP 5mg / 325mg: take 1 orally every 8 hours as needed for pain. Dispense ten (10). No refill. Follow-up: Follow up with your doctor in one week. Call for an appointment. Understanding of the discharge instructions verbalized by patient and family. Discharge instructions reviewed with and understanding was verbalized by patient and guardian (Daughter). ADDITIONAL INFORMATION Mechanical Fall You have had a fall today. It appears that the cause is mechanical. That means that you slipped, tripped or lost your balance. If your fall had been due to fainting or a seizure, further tests would be required. Home Care: Rest today and resume your normal activities when you are feeling back to normal. If you were injured during the fall, follow the advice from your doctor regarding care of your injury. You may use acetaminophen (Tylenol) or ibuprofen (Motrin, Advil) to control pain, unless another pain medicine was prescribed. [NOTE: If you have chronic liver or kidney disease or ever had a stomach ulcer or GI bleeding, talk with your doctor before using these medicines.] Fall Prevention: Was there anything that caused your fall that can be fixed, removed, or replaced? Make your home safe by keeping walkways clear of objects you may trip over. Use non-slip pads under rugs. Do not walk in poorly lit areas. Do not stand on chairs or wobbly ladders. Use caution when reaching overhead or looking upward. This position can cause a loss of balance. Be sure your shoes fit properly, have non-slip bottoms and are in good condition. Be cautious when going up and down curbs, and walking on uneven sidewalks. If your balance is poor, consider using a cane or walker. Stay as active as you can. Balance, flexibility, strength, and endurance all come from exercise. They all play a role in preventing falls. Follow Up with your doctor or as advised by our staff. Get Prompt Medical Attention if any of the following occur: Repeated mechanical falls, or unexplained falls Dizziness, fainting or seizure Severe headache Chest pain or shortness of breath Palpitations (very rapid or very slow or irregular heartbeat) Blood in vomit, stools (black or red color) Weakness of an arm or leg or one side of the face Difficulty with speech or vision Hydrocodone Bitartrate, Acetaminophen Oral tablet What is this medicine? ACETAMINOPHEN; HYDROCODONE (a set a STONEY malena fen; christiano droe KOE done) is a pain reliever. It is used to treat mild to moderate pain. How should I use this medicine? Take this medicine by mouth. Swallow it with a full glass of water. Follow the directions on the prescription label. If the medicine upsets your stomach, take the medicine with food or milk. Do not take more than you are told to take. Talk to your leather cartridge belt maker regarding the use of this medicine in children. This medicine is not approved for use in children. What side effects may I notice from receiving this medicine? Side effects that you should report to your doctor or health rn long term care as soon as possible: allergic reactions like skin rash, itching or hives, swelling of the face, lips, or tongue breathing problems confusion feeling faint or lightheaded, falls stomach pain yellowing of the eyes or skin Side effects that usually do not require medical attention (report to your doctor or health rn long term care if they continue or are bothersome): nausea, vomiting stomach upset What may interact with this medicine? alcohol antihistamines isoniazid medicines for depression, anxiety, or psychotic disturbances medicines for sleep muscle relaxants naltrexone narcotic medicines (opiates) for pain phenobarbital ritonavir tramadol What if I miss a dose? If you miss a dose, take it as soon as you can. If it is almost time for your next dose, take only that dose. Do not take double or extra doses. Where should I keep my medicine? Keep out of the reach of children. This medicine can be abused. Keep your medicine in a safe place to protect it from theft. Do not share this medicine with anyone. Selling or giving away this medicine is dangerous and against the law. Store at room temperature between 15 and 30 degrees C (59 and 86 degrees F). Protect from light. Keep container tightly closed. Throw away any unused medicine after the expiration date. Discard unused medicine and used packaging carefully. Pets and children can be harmed if they find used or lost packages. What should I tell my health care provider before I take this medicine? They need to know if you have any of these conditions: brain tumor Crohn's disease, inflammatory bowel disease, or ulcerative colitis drink more than 3 alcohol-containing drinks per day drug abuse or addiction head injury heart or circulation problems kidney disease or problems going to the bathroom liver disease lung disease, asthma, or breathing problems an unusual or allergic reaction to acetaminophen, hydrocodone, other opioid analgesics, other medicines, foods, dyes, or preservatives or trying to get breast-feeding What should I watch for while using this medicine? Tell your doctor or health rn long term care if your pain does not go away, if it gets worse, or if you have new or a different type of pain. You may develop tolerance to the medicine. Tolerance means that you will need a higher dose of the medicine for pain relief. Tolerance is normal and is expected if you take the medicine for a long time. Do not suddenly stop taking your medicine because you may develop a severe reaction. Your body becomes used to the medicine. This does NOT mean you are addicted. Addiction is a behavior related to getting and using a drug for a non-medical reason. If you have pain, you have a medical reason to take pain medicine. Your doctor will tell you how much medicine to take. If your doctor wants you to stop the medicine, the dose will be slowly lowered over time to avoid any side effects. You may get drowsy or dizzy when you first start taking the medicine or change doses. Do not drive, use machinery, or do anything that may be dangerous until you know how the medicine affects you. Stand or sit up slowly. There are different types of narcotic medicines (opiates) for pain. If you take more than one type at the same time, you may have more side effects. Give your health care provider a list of all medicines you use. Your doctor will tell you how much medicine to take. Do not take more medicine than directed. Call emergency for help if you have problems breathing. The medicine will cause constipation. Try to have a bowel movement at least every 2 to 3 days. If you do not have a bowel movement for 3 days, call your doctor or health rn long term care. Too much acetaminophen can be very dangerous. Do not take Tylenol (acetaminophen) or medicines that contain acetaminophen with this medicine. Many non-prescription medicines contain acetaminophen. Always read the labels carefully. You have been given the following additional information: Fall, Mechanical Hydrocodone Bitartrate, Acetaminophen Oral tablet No strenuous activity. (Electronically signed by Yossi Eubanks MD 01/20/2017 20:08)
== END 2017-01-20 18:54 | disposition home or self-care (01) ==
LOC: ED SRH 14:22
DX: M48.54XA Collapsed vertebra, not elsewhere classified, thoracic region, initial encounter for fracture (principal); R26.81 Unsteadiness on feet; Z91.81 History of falling; I48.91 Unspecified atrial fibrillation; I50.9 Heart failure, unspecified; E11.9 Type 2 diabetes mellitus without complications; J44.9 Chronic obstructive pulmonary disease, unspecified; I25.2 Old myocardial infarction; Z79.01 Long term (current) use of anticoagulants; Z79.899 Other long term (current) drug therapy
CPT/HCPCS: 90004; 90100; 93020; 94060; 95059

== ENCOUNTER 2017-02-19 10:55 | Observation (INO) | payer OTHER ==
[~2017-02-19] VITALS: Ht 167.6 cm; Wt 44.1 kg
--- NOTE | 2017-02-19 12:47 | DIAGNOSTIC IMAGING REPORT ---
PROCEDURE: CT HEAD WITHOUT CONTRAST INDICATION: WEAKNESS TECHNIQUE: Noncontrast axial images with sagittal and coronal reformations. COMPARISON: None. FINDINGS: Moderate cortical atrophy with mild white matter chronic ischemic changes. No evidence of an acute CVA, hemorrhage, mass or midline shift. Calcification of the vertebral and carotid arteries. No evidence of acute intracranial process. Visualized mastoids and sinuses are clear. IMPRESSION: 1. No acute intracranial abnormality 2. Moderate atrophy and mild white matter chronic ischemic changes. 3. Findings discussed with Dr. Gordon at 12:45 p.m., [place] Standard Time
--- NOTE | 2017-02-19 12:55 | DIAGNOSTIC IMAGING REPORT ---
PROCEDURE: XR CHEST 1 VIEW INDICATION: LETHARGY TECHNIQUE: Portable AP view 11:33 a.m. COMPARISON: Chest x-ray 01/20/2017 FINDINGS: Lungs are clear. Stable cardiomegaly. Pulmonary vascularity and mediastinum are normal. Surgical changes of the GE junction. Thorax is normal. No significant interval change. IMPRESSION: 1. Stable mild cardiomegaly.
--- NOTE | 2017-02-19 13:09 | ED NURSING NOTES ---
Clinical Report - Nurses [facility] [address] [place] [address] 02/19/2017 10:57 Patient: RITA RAMIREZ TRIAGE Triage time 10:59. Acuity: LEVEL 3. Chief Complaint: (weak and difficulty ambulating.). Alert (pt. seems alert but not oriented. States, " I need to go to the football game."). ( PER: daughter: deputy jailer called daughter because Rita has been very weak and not able to ambulate and seemed "lethargic." She recently was seen by her PCP who stated she was malnourished and dehydrated. She was sent home with vitamins and instructed to hydrate.). SEPSIS SCREEN: Sepsis Screen. Negative (no infection suspected/documented). SOUTH COMA SCORE: [place] Coma Scale: 14- eyes open spontaneously (4); best verbal response- disoriented (4); best motor response- obeys commands (6). --11:26 Valencia Robbins R.N. 10:59 02/19/17. BP: 104/56. HR: 86. RR: 20. O2 saturation: 98%. Temp: 97.5 F. Pain level now 0/10. --11:26 Valencia Robbins R.N. Weight: 36.2 kg estimated. Height/Length: 61 inches Estimated. BMI: 15.1. --11:23 Valencia Robbins R.N. Medications Calcium + D Oral. Digoxin Oral (Tablet 125 mcg) 1 tablet, daily. MetFORMIN HCl Oral (Tablet 500 mg) 1/2 tablet, daily. Metoprolol Succinate ER Oral (Tablet Extended Release 24 Hour 50 mg) 1 tablet, am. Nitroglycerin Translingual. Spiriva HandiHaler Inhalation, daily- (is taking twice a day most days). Vits, for eye bid. --11:27 Valencia Robbins R.N. Furosemide Oral 20 mg, daily. --11:28 Valencia Robbins R.N. Warfarin Sodium Oral 2.5 mg, daily. --11:28 Valencia Robbins R.N. Bausch and lomb. --11: Valencia Robbins R.N. Calcium chew 500mg x2 daily. --: Valencia Robbins R.N. Loratadine Oral 10 mg, daily. --: Valencia Robbins R.N. Allergies Cortisone. Penicillin. --11: Valencia Robbins R.N. History Arrived by private vehicle. Historian: patient. Accompanied by daughter. Primary physician (Dr. Guevara). ( Pt. appears confused states, "I'm bring the cows in, does she know when the milk comes in?"). Treatment MAPPING ENGINEER: None. PAST MEDICAL HX: Immunizations: up-to-date. SOCIAL HX: Heavy tobacco smoker (cigarette)- less than 1 pack per day. Alcohol use. (daughter states she is a recovering alcoholic and has not used for over 40 years). No drug use. No infectious disease exposure. ABUSE ASSESSMENT: No report of abuse. NUTRITIONAL RISK ASSESSMENT: The nutritional risk assessment revealed no deficiencies. LEARNING NEEDS ASSESSMENT: The learning needs assessment revealed no barriers. FUNCTIONAL ASSESSMENT: Functional assessment performed: requires assistance with the activities of daily living; uses wheelchair; cognitive impairment- Alzheimer's disease and senile dementia. -- Valencia Robbins R.N. PROBLEMS: Fall. Diabetes Mellitus. GIB - ulcers. COPD - Chronic Obstructive Pulmonary Disease. Myocardial Infarction. Diverticulitis. Osteoporosis. CVA - Cerebrovascular Accident. Atrial Fibrillation. Congestive Heart Failure. Coumadin Toxicity. Atypical Chest Pain. Near Syncope. Arrhythmia. Syncope. [place]. Peptic Ulcer Disease. --11: Valencia Robbins R.N. ADDITIONAL SURGERIES: Appendectomy. Carpal Tunnel Surgery. Hysterectomy. Knee Surgery. --11: Valencia Robbins R.N. Interventions ID band on patient. Transported via wheelchair. --: Valencia Robbins R.N. PHYSICAL ASSESSMENT 11:00. To room via wheelchair. GENERAL / NEURO / PSYCH: Alert. Appears in no acute distress. The patient is disoriented to person, place, time and situation. RESPIRATORY: Respirations not labored. SKIN: Skin is warm and dry. Generalized skin rash (present on arrival). --11:07 Valencia Robbins R.N. NURSING PROGRESS NOTES Patient gowned. Head of bed elevated. Two patient identifiers checked. Call light placed in reach. Side rails up x 2. Bed placed in lowest position. Brakes of bed on. Patient ready for evaluation- chart flagged. --11:07 Valencia Robbins R.N. Patient ID band checked for patient name, birthdate and medical record number: patient confirmed. Instructions provided to collect clean catch urine and patient verbalized understanding. Catheterized urine collected with return of yellow-colored clear urine; sample sent to lab for urinalysis. Specimen labeled in the presence of the patient (collected by SIDNEY Jaimes). --11:08 Valencia Robbins R.N. 11:25 02/19/2017 Site #1 started via IV in the left wrist with an 20g angiocath, with aseptic technique and good blood return; one attempt. Blood drawn: rainbow set. Labeled in the presence of the patient and sent to the lab. Saline lock flushed with 10 mL saline (accessed by SIDNEY Alfonso). --11:25 Valencia Robbins R.N. manager monitoring, pulse oximeter and NIBP monitor placed on patient; security monitor- Lead II; monitor alarms on. --11:26 Valencia Robbins R.N. ( PER daughter: pt. is DNR.). --11:32 Valencia Robbins R.N. Portable chest x-ray performed and shown to the ED physician. --11:35 Valencia Robbins R.N. EKG time: (1143). EKG was ordered, performed by a tech and shown to the ED physician. --11:45 Lynda Melendez 12:15 02/19/17. BP: 101/66. HR: 83. RR: 13. O2 saturation: 97%. --12:17 Valencia Robbins R.N. Family informed about reason for wait. --12:17 Valencia Robbins R.N. Patient transported to radiology by stretcher with tech. --12:24 Valencia Robbins R.N. 13:15 02/19/2017 Lasix IVP 10 mg given over 2 minute(s) via site #1. Allergies verified and confirmed 5 rights. IV patency established. IV site checked: no pain, redness, or swelling. IV flushed thoroughly pre- and post-medication administration. --13:15 Valencia Robbins R.N. DISPOSITION / DISCHARGE Report was given to a nurse via a phone call. Report included patient's care, treatment, medications, reviewed medication reconcilliation, and condition (including any recent changes or anticipated changes). All questions were answered. --13:52 Valencia Robbins R.N. Admitted to the Critical Care Unit. --13:52 Valencia Robbins R.N. 13:54 02/19/17. BP: 105/55. HR: 88. RR: 19. O2 saturation: 98%. Temp: 97.7 F. Pain level now 0/10. --13:54 Valencia Robbins R.N. Patient's personal items; items were placed in belongings bag, given to the patient and transported with the patient. --13:54 Valencia Robbins R.N. Departure time: 1400. --15:07 Valencia Robbins R.N. 14:00 02/19/2017 Site #[address] upon admission; patent, no pain and no signs of infiltration. No blood return present. Converted to saline lock and flushed with 10 mL saline; flushes easily. --15:08 Valencia Robbins R.N. Locked/Released at 02/19/2017 15:08 by Valencia Robbins R.N.
--- NOTE | 2017-02-19 13:09 | ED CLINICAL REPORT ---
Clinical Report - Physicians/Mid Levels [facility] [address] [place] [address] 02/19/2017 10:57 Patient: TERI RAMIREZ Time Seen: 11:03. Arrived- By private vehicle. Historian- patient and family. History limited by dementia. Physical Exam limited by dementia. HISTORY OF PRESENT ILLNESS Chief Complaint: WEAKNESS. At its maximum, severity described as severe. When seen in the E.D., severity described as severe. This started today and is still present. It was abrupt in onset and has been intermittent and waxing/waning. The patient has had fatigue and weakness. (The patient has a history of multiple medical issues. She currently resides alone and has a caregiver that comes for approximately 1 hour each day. She is accompanied today by her "daughter" - a dear friend who has power of real estate attorney for the patient. She reports that the caregiver contacted her this morning as she was unable to rouse the patient. Eventually she did get her to wake up enough to give her her medications. However, even with assistance she was not able to get the patient to stand. She also reports that the patient has had multiple falls recently. The patient doesn't knowledge having some shortness of breath. She denies chest pain.). REVIEW OF SYSTEMS No chills, fever, sweats, calf pain or chest pain. No cough, pedal edema, abdominal pain, constipation or diarrhea. No nausea or vomiting. She has had mild difficulty breathing and palpitations. She has had new onset of generalized weakness. All systems otherwise negative, except as recorded above. PAST HISTORY PCP - Paola. Problems: Fall. Diabetes Mellitus. GIB - ulcers. COPD - Chronic Obstructive Pulmonary Disease. Myocardial Infarction. Diverticulitis. Osteoporosis. CVA - Cerebrovascular Accident. Atrial Fibrillation. Congestive Heart Failure. Coumadin Toxicity. Atypical Chest Pain. Near Syncope. Arrhythmia. Syncope. [place]. Peptic Ulcer Disease. Additional Surgeries: Appendectomy. Carpal Tunnel Surgery. Hysterectomy. Knee Surgery. Medications: Loratadine Oral 10 mg, daily. Calcium chew 500mg x2 daily. Bausch and lomb. Warfarin Sodium Oral 2.5 mg, daily. Furosemide Oral 20 mg, daily. Calcium + D Oral. Digoxin Oral (Tablet 125 mcg) 1 tablet, daily. MetFORMIN HCl Oral (Tablet 500 mg) 1/2 tablet, daily. Metoprolol Succinate ER Oral (Tablet Extended Release 24 Hour 50 mg) 1 tablet, am. Nitroglycerin Translingual. Spiriva HandiHaler Inhalation, daily- (is taking twice a day most days). Vits, for eye bid. Allergies: Cortisone. Penicillin. SOCIAL HISTORY Current every day heavy tobacco smoker (cigarette)- less than 1 pack per day. Alcohol use. Patient is a recovering alcoholic. She lives alone. Has poor social support. FAMILY HISTORY No significant family medical history. ADDITIONAL NOTES The nursing notes have been reviewed. PHYSICAL EXAM Vital Signs: 02/19/2017 10:59 BP: 104/56. HR: 86. RR: 20. O2 saturation: 98%. Temp: 97.5 F. Have been reviewed. Appearance: Alert. She is disoriented and confused and appears frail, elderly and older than stated age. Eyes: Pupils equal, round and reactive to light. ENT: Pharynx normal. Neck: Normal inspection. Neck supple. CVS: Abnormal rhythm, which is irregularly irregular. Respiratory: No respiratory distress. Decreased air movement. Abdomen: No visible injury. Soft and nontender. Bowel sounds normal. No organomegaly. No mass. Femoral pulses equal. Back: (kyphotic). : Normal external exam. (female dredge runner present). Skin: Skin warm and dry. Pallor. Extremities: Extremities exhibit normal ROM. No calf tenderness. No lower extremity edema. Neuro: Altered mental status: confused and disoriented to place and time. Patient slow to respond. Inaccurate responses to questions and inconsistent responses to commands. Eyes open spontaneously. Best verbal response: disoriented. LABS, X-RAYS, AND EKG EKG: Rate: 90. Atrial fibrillation. Non-specific ST segment / T wave abnormalities. EKG unchanged when compared with prior EKG. (20 Jan 2017). The study has been independently viewed by me. Chest X-ray: (IMPRESSION: 1. Stable mild cardiomegaly.). The X-rays were interpreted by the radiologist and contemporaneously by me. CT Head: (IMPRESSION: 1. No acute intracranial abnormality 2. Moderate atrophy and mild white matter chronic ischemic changes.). The study was interpreted by the radiologist and contemporaneously by me. Laboratory Tests: UA-Culture if indicated: (MARIANN: 02/19/2017 11:20) ( [facility] 02/19/2017 11:40) Final results Test Result Flag Units (Reference) URINE COLOR YELLOW URINE APPEARANCE CLEAR URINE GLUCOSE NEGATIVE (NEGATIVE) URINE BILIRUBIN NEGATIVE (NEGATIVE) URINE KETONE NEGATIVE (NEGATIVE) URINE SPECIFIC GRAVITY <= 1.005 L (1.010-1.030) URINE PH 6.0 (5.0-8.0) URINE PROTEIN NEGATIVE (NEGATIVE) URINE UROBILINOGEN 0.2 EU/dL (0.2-1.0) URINE NITRITE NEGATIVE (NEGATIVE) URINE BLOOD 2+ (NEGATIVE) URINE LEUK ESTERASE NEGATIVE (NEGATIVE) URINE RBC 25-50 rbc/hpf (0-1) URINE WBC NONE SEEN wbc/hpf (0-1) URINE EPITHELIAL CELLS NONE SEEN EPI/hpf (0-5) URINE BACTERIA NONE SEEN (NONE SEEN) URINE COMMENT CULT NOT INDICATED 5-10 HYALINE CAST. 1-3 TRANSITIONAL EPITHELIAL CELLS. 1-3RENAL EPITHELIAL CELLS.URINE CULTURES ARE SET-UP BASED ON THE FOLLOWING CRITERIA:POSITIVE NITRITEPOSITIVE LEUKOCYTE ESTERASEGREATER THAN 10 WHITE BLOOD CELLSMODERATE (2+) OR GREATER BACTERIA CBC w Diff: (MARIANN: 02/19/2017 11:25) ( [facility] 02/19/2017 11:46) Final results Test Result Flag Units (Reference) WHITE BLOOD COUNT 8.6 K/uL (4.5-11.5) RED BLOOD COUNT 5.73 H M/uL (4.00-5.20) HEMOGLOBIN 13.1 gm/dL (12.0-16.0) HEMATOCRIT 43.7 % (36.0-46.0) MEAN CELL VOLUME 76 L fL (80-100) MEAN CORPUSCULAR HGB 23 L pg (26-34) MEAN CORPUSCULAR HGB CONC 30 L g/dL (31-37) RED CELL DISTRIBUTION WIDTH 19.8 H % (11.6-14.8) PLATELET COUNT 268 K/uL (150-400) NEUTROPHIL % 72.9 % (50-75) LYMPH % 17.1 L % (25-40) MONO % 7.7 % (3-14) EOSINOPHIL % 1.7 % (0-4) BASOPHIL % 0.6 % (0-2) PT with INR: (MARIANN: 02/19/2017 11:25) ( [facility] 02/19/2017 11:48) Final results Test Result Flag Units (Reference) INR 2.5 H (0.8-1.2) Low Intensity Therapy: INR 1.5-2.0 PT range 18.5-23.1Mod.Intensity Therapy: INR 2.0-3.0 PT range 23.1-31.5High Intensity Therapy: INR 2.5-3.5 PT range 27.4-35.5High Intensity Therapy 2: INR 3.0-4.0 PT range 31.5-39.3 APTT 42 H SECONDS (24-34) Digoxin Level: (MARIANN: 02/19/2017 11:25) ( [facility] 02/19/2017 12:03) Final results Test Result Flag Units (Reference) DIGOXIN 1.7 ng/mL (0.9-2.0) Urine Drug Screen: (MARIANN: 02/19/2017 11:20) ( [facility] 02/19/2017 11:52) Final results Test Result Flag Units (Reference) AMPHETAMINE/METHAMPHETAMINE NEGATIVE (NEGATIVE) BARBITURATE NEGATIVE (NEGATIVE) BENZODIAZEPINE NEGATIVE (NEGATIVE) CANNABINOID NEGATIVE (NEGATIVE) COCAINE NEGATIVE (NEGATIVE) ECSTASY NEGATIVE (NEGATIVE) METHADONE NEGATIVE (NEGATIVE) OPIATE NEGATIVE (NEGATIVE) The urine drug screen is a qualitative screening test fordrug overdose and abuse. All screen results should beconsidered as presumptive.Drugs screened for are as follows:BenzodiazepinesCocaineAmphetamines/MetamphetaminesTHC (Tetrahydrocannabinol)OpiatesBarbituratesEcstasyMethadonePositive results are unconfirmed. For confirmation, notifythe lab for the specimen to be sent to the reference lab.All confirmations must be performed by a differentmethodology.The ingestion of natural herbal and plant productscontaining Ephedra/Ephedra metabolites can produce in urineone or more substances capable of cross reacting withamphetamine/methamphetamine immunoassays. These testsprovide a preliminary result only. A more specificalternative chemical method must be used to obtain aconfirmed analytical result. BNP: (MARIANN: 02/19/2017 11:25) ( MsgRcvd 02/19/2017 12:04) Final results Test Result Flag Units (Reference) B-TYPE NATRIURETIC PEPTIDE 695 H pg/ml (5-100) CMP: (MARIANN: 02/19/2017 11:25) ( MsgRcvd 02/19/2017 12:11) Final results Test Result Flag Units (Reference) GLUCOSE 118 H mg/dL (70-110) BUN 31 H mg/dL (7-18) CREATININE 1.8 H mg/dL (0.6-1.3) Estimated GFR 28.70 mL/min Estimated GFR- 34.79 mL/min Note: Persistent reduction over 3 months in eGFR<60 mL/min/1.73 m2 defines CKD. Patients with eGFR values>=60 mL/min/1.73 m2 may also have CKD if evidence ofpersistent proteinuria. Additional information may be foundat www.kidney.org. SODIUM 140 mmol/L (136-145) POTASSIUM 4.9 mmol/L (3.5-5.1) CHLORIDE 103 mmol/L (98-107) CARBON DIOXIDE 29 mmol/L (21-32) CALCIUM 9.1 mg/dL (8.5-10.1) TOTAL PROTEIN 6.8 g/dL (6.4-8.2) ALBUMIN 3.5 g/dL (3.3-5.0) BILIRUBIN, TOTAL 0.6 mg/dL (0.0-1.0) ALKALINE PHOSPHATASE 73 U/L (46-116) AST (SGOT) 19 U/L (15-37) ALT (SGPT) 9 L U/L (12-78) LIPASE 103 U/L (73-393) AMYLASE 18 L U/L (25-115) CPK 53 U/L (24-260) TROPONIN I <0.05 L ng/mL (0.00-1.5) TROPONIN REFERENCE RANGE:<0.1 NEGATIVE0.1-1.5 INDETERMINANT>1.5 POSITIVE . PROGRESS AND PROCEDURES Course of Care: Patient is stable. Discussed case with hospitalist, (Tana). Reviewed test results and need for additional work-up. Agreed upon treatment plan. Health care provider will see patient in ED. Patient/family counseled. Old medical records reviewed. Disposition: Admitted. Observation. CLINICAL IMPRESSION Dementia. Acute generalized weakness. Congestive heart failure. Atrial fibrillation. Renal insufficiency. (Electronically signed by Javon Gordon MD 02/19/2017 14:07)
--- NOTE | 2017-02-19 13:09 | ED CLINICAL REPORT ---
Clinical Report - Physicians/Mid Levels [facility] [address] [place] [address] 02/19/2017 10:57 Patient: TERI RAMIREZ Time Seen: 11:03. Arrived- By private vehicle. Historian- patient and family. History limited by dementia. Physical Exam limited by dementia. HISTORY OF PRESENT ILLNESS Chief Complaint: WEAKNESS. At its maximum, severity described as severe. When seen in the E.D., severity described as severe. This started today and is still present. It was abrupt in onset and has been intermittent and waxing/waning. The patient has had fatigue and weakness. (The patient has a history of multiple medical issues. She currently resides alone and has a caregiver that comes for approximately 1 hour each day. She is accompanied today by her "daughter" - a dear friend who has power of employee benefits attorney for the patient. She reports that the caregiver contacted her this morning as she was unable to rouse the patient. Eventually she did get her to wake up enough to give her her medications. However, even with assistance she was not able to get the patient to stand. She also reports that the patient has had multiple falls recently. The patient doesn't knowledge having some shortness of breath. She denies chest pain.). REVIEW OF SYSTEMS No chills, fever, sweats, calf pain or chest pain. No cough, pedal edema, abdominal pain, constipation or diarrhea. No nausea or vomiting. She has had mild difficulty breathing and palpitations. She has had new onset of generalized weakness. All systems otherwise negative, except as recorded above. PAST HISTORY PCP - Paola. Problems: Fall. Diabetes Mellitus. GIB - ulcers. COPD - Chronic Obstructive Pulmonary Disease. Myocardial Infarction. Diverticulitis. Osteoporosis. CVA - Cerebrovascular Accident. Atrial Fibrillation. Congestive Heart Failure. Coumadin Toxicity. Atypical Chest Pain. Near Syncope. Arrhythmia. Syncope. [place]. Peptic Ulcer Disease. Additional Surgeries: Appendectomy. Carpal Tunnel Surgery. Hysterectomy. Knee Surgery. Medications: Loratadine Oral 10 mg, daily. Calcium chew 500mg x2 daily. Bausch and lomb. Warfarin Sodium Oral 2.5 mg, daily. Furosemide Oral 20 mg, daily. Calcium + D Oral. Digoxin Oral (Tablet 125 mcg) 1 tablet, daily. MetFORMIN HCl Oral (Tablet 500 mg) 1/2 tablet, daily. Metoprolol Succinate ER Oral (Tablet Extended Release 24 Hour 50 mg) 1 tablet, am. Nitroglycerin Translingual. Spiriva HandiHaler Inhalation, daily- (is taking twice a day most days). Vits, for eye bid. Allergies: Cortisone. Penicillin. SOCIAL HISTORY Current every day heavy tobacco smoker (cigarette)- less than 1 pack per day. Alcohol use. Patient is a recovering alcoholic. She lives alone. Has poor social support. FAMILY HISTORY No significant family medical history. ADDITIONAL NOTES The nursing notes have been reviewed. PHYSICAL EXAM Vital Signs: 02/19/2017 10:59 BP: 104/56. HR: 86. RR: 20. O2 saturation: 98%. Temp: 97.5 F. Have been reviewed. Appearance: Alert. She is disoriented and confused and appears frail, elderly and older than stated age. Eyes: Pupils equal, round and reactive to light. ENT: Pharynx normal. Neck: Normal inspection. Neck supple. CVS: Abnormal rhythm, which is irregularly irregular. Respiratory: No respiratory distress. Decreased air movement. Abdomen: No visible injury. Soft and nontender. Bowel sounds normal. No organomegaly. No mass. Femoral pulses equal. Back: (kyphotic). : Normal external exam. (female industrial methods consultant present). Skin: Skin warm and dry. Pallor. Extremities: Extremities exhibit normal ROM. No calf tenderness. No lower extremity edema. Neuro: Altered mental status: confused and disoriented to place and time. Patient slow to respond. Inaccurate responses to questions and inconsistent responses to commands. Eyes open spontaneously. Best verbal response: disoriented. LABS, X-RAYS, AND EKG EKG: Rate: 90. Atrial fibrillation. Non-specific ST segment / T wave abnormalities. EKG unchanged when compared with prior EKG. (20 Jan 2017). The study has been independently viewed by me. Chest X-ray: (IMPRESSION: 1. Stable mild cardiomegaly.). The X-rays were interpreted by the radiologist and contemporaneously by me. CT Head: (IMPRESSION: 1. No acute intracranial abnormality 2. Moderate atrophy and mild white matter chronic ischemic changes.). The study was interpreted by the radiologist and contemporaneously by me. Laboratory Tests: UA-Culture if indicated: (MARIANN: 02/19/2017 11:20) ( [facility] 02/19/2017 11:40) Final results Test Result Flag Units (Reference) URINE COLOR YELLOW URINE APPEARANCE CLEAR URINE GLUCOSE NEGATIVE (NEGATIVE) URINE BILIRUBIN NEGATIVE (NEGATIVE) URINE KETONE NEGATIVE (NEGATIVE) URINE SPECIFIC GRAVITY <= 1.005 L (1.010-1.030) URINE PH 6.0 (5.0-8.0) URINE PROTEIN NEGATIVE (NEGATIVE) URINE UROBILINOGEN 0.2 EU/dL (0.2-1.0) URINE NITRITE NEGATIVE (NEGATIVE) URINE BLOOD 2+ (NEGATIVE) URINE LEUK ESTERASE NEGATIVE (NEGATIVE) URINE RBC 25-50 rbc/hpf (0-1) URINE WBC NONE SEEN wbc/hpf (0-1) URINE EPITHELIAL CELLS NONE SEEN EPI/hpf (0-5) URINE BACTERIA NONE SEEN (NONE SEEN) URINE COMMENT CULT NOT INDICATED 5-10 HYALINE CAST. 1-3 TRANSITIONAL EPITHELIAL CELLS. 1-3RENAL EPITHELIAL CELLS.URINE CULTURES ARE SET-UP BASED ON THE FOLLOWING CRITERIA:POSITIVE NITRITEPOSITIVE LEUKOCYTE ESTERASEGREATER THAN 10 WHITE BLOOD CELLSMODERATE (2+) OR GREATER BACTERIA CBC w Diff: (MARIANN: 02/19/2017 11:25) ( [facility] 02/19/2017 11:46) Final results Test Result Flag Units (Reference) WHITE BLOOD COUNT 8.6 K/uL (4.5-11.5) RED BLOOD COUNT 5.73 H M/uL (4.00-5.20) HEMOGLOBIN 13.1 gm/dL (12.0-16.0) HEMATOCRIT 43.7 % (36.0-46.0) MEAN CELL VOLUME 76 L fL (80-100) MEAN CORPUSCULAR HGB 23 L pg (26-34) MEAN CORPUSCULAR HGB CONC 30 L g/dL (31-37) RED CELL DISTRIBUTION WIDTH 19.8 H % (11.6-14.8) PLATELET COUNT 268 K/uL (150-400) NEUTROPHIL % 72.9 % (50-75) LYMPH % 17.1 L % (25-40) MONO % 7.7 % (3-14) EOSINOPHIL % 1.7 % (0-4) BASOPHIL % 0.6 % (0-2) PT with INR: (MARIANN: 02/19/2017 11:25) ( [facility] 02/19/2017 11:48) Final results Test Result Flag Units (Reference) INR 2.5 H (0.8-1.2) Low Intensity Therapy: INR 1.5-2.0 PT range 18.5-23.1Mod.Intensity Therapy: INR 2.0-3.0 PT range 23.1-31.5High Intensity Therapy: INR 2.5-3.5 PT range 27.4-35.5High Intensity Therapy 2: INR 3.0-4.0 PT range 31.5-39.3 APTT 42 H SECONDS (24-34) Digoxin Level: (MARIANN: 02/19/2017 11:25) ( [facility] 02/19/2017 12:03) Final results Test Result Flag Units (Reference) DIGOXIN 1.7 ng/mL (0.9-2.0) Urine Drug Screen: (MARIANN: 02/19/2017 11:20) ( [facility] 02/19/2017 11:52) Final results Test Result Flag Units (Reference) AMPHETAMINE/METHAMPHETAMINE NEGATIVE (NEGATIVE) BARBITURATE NEGATIVE (NEGATIVE) BENZODIAZEPINE NEGATIVE (NEGATIVE) CANNABINOID NEGATIVE (NEGATIVE) COCAINE NEGATIVE (NEGATIVE) ECSTASY NEGATIVE (NEGATIVE) METHADONE NEGATIVE (NEGATIVE) OPIATE NEGATIVE (NEGATIVE) The urine drug screen is a qualitative screening test fordrug overdose and abuse. All screen results should beconsidered as presumptive.Drugs screened for are as follows:BenzodiazepinesCocaineAmphetamines/MetamphetaminesTHC (Tetrahydrocannabinol)OpiatesBarbituratesEcstasyMethadonePositive results are unconfirmed. For confirmation, notifythe lab for the specimen to be sent to the reference lab.All confirmations must be performed by a differentmethodology.The ingestion of natural herbal and plant productscontaining Ephedra/Ephedra metabolites can produce in urineone or more substances capable of cross reacting withamphetamine/methamphetamine immunoassays. These testsprovide a preliminary result only. A more specificalternative chemical method must be used to obtain aconfirmed analytical result. BNP: (MARIANN: 02/19/2017 11:25) ( MsgRcvd 02/19/2017 12:04) Final results Test Result Flag Units (Reference) B-TYPE NATRIURETIC PEPTIDE 695 H pg/ml (5-100) CMP: (MARIANN: 02/19/2017 11:25) ( MsgRcvd 02/19/2017 12:11) Final results Test Result Flag Units (Reference) GLUCOSE 118 H mg/dL (70-110) BUN 31 H mg/dL (7-18) CREATININE 1.8 H mg/dL (0.6-1.3) Estimated GFR 28.70 mL/min Estimated GFR- 34.79 mL/min Note: Persistent reduction over 3 months in eGFR<60 mL/min/1.73 m2 defines CKD. Patients with eGFR values>=60 mL/min/1.73 m2 may also have CKD if evidence ofpersistent proteinuria. Additional information may be foundat www.kidney.org. SODIUM 140 mmol/L (136-145) POTASSIUM 4.9 mmol/L (3.5-5.1) CHLORIDE 103 mmol/L (98-107) CARBON DIOXIDE 29 mmol/L (21-32) CALCIUM 9.1 mg/dL (8.5-10.1) TOTAL PROTEIN 6.8 g/dL (6.4-8.2) ALBUMIN 3.5 g/dL (3.3-5.0) BILIRUBIN, TOTAL 0.6 mg/dL (0.0-1.0) ALKALINE PHOSPHATASE 73 U/L (46-116) AST (SGOT) 19 U/L (15-37) ALT (SGPT) 9 L U/L (12-78) LIPASE 103 U/L (73-393) AMYLASE 18 L U/L (25-115) CPK 53 U/L (24-260) TROPONIN I <0.05 L ng/mL (0.00-1.5) TROPONIN REFERENCE RANGE:<0.1 NEGATIVE0.1-1.5 INDETERMINANT>1.5 POSITIVE . PROGRESS AND PROCEDURES Course of Care: Patient is stable. Discussed case with hospitalist, (Tana). Reviewed test results and need for additional work-up. Agreed upon treatment plan. Health care provider will see patient in ED. Patient/family counseled. Old medical records reviewed. Disposition: Admitted. Observation. CLINICAL IMPRESSION Dementia. Acute generalized weakness. Congestive heart failure. Atrial fibrillation. Renal insufficiency. (Electronically signed by Javon Gordon MD 02/19/2017 14:07)
--- NOTE | 2017-02-19 13:09 | ED NURSING NOTES ---
Clinical Report - Nurses [facility] [address] [place] [address] 02/19/2017 10:57 Patient: RITA RAMIREZ TRIAGE Triage time 10:59. Acuity: LEVEL 3. Chief Complaint: (weak and difficulty ambulating.). Alert (pt. seems alert but not oriented. States, " I need to go to the football game."). ( PER: daughter: cognos analyst called daughter because Rita has been very weak and not able to ambulate and seemed "lethargic." She recently was seen by her PCP who stated she was malnourished and dehydrated. She was sent home with vitamins and instructed to hydrate.). SEPSIS SCREEN: Sepsis Screen. Negative (no infection suspected/documented). SOUTH COMA SCORE: [place] Coma Scale: 14- eyes open spontaneously (4); best verbal response- disoriented (4); best motor response- obeys commands (6). --11:26 Valencia Robbins R.N. 10:59 02/19/17. BP: 104/56. HR: 86. RR: 20. O2 saturation: 98%. Temp: 97.5 F. Pain level now 0/10. --11:26 Valencia Robbins R.N. Weight: 36.2 kg estimated. Height/Length: 61 inches Estimated. BMI: 15.1. --11:23 Valencia Robbins R.N. Medications Calcium + D Oral. Digoxin Oral (Tablet 125 mcg) 1 tablet, daily. MetFORMIN HCl Oral (Tablet 500 mg) 1/2 tablet, daily. Metoprolol Succinate ER Oral (Tablet Extended Release 24 Hour 50 mg) 1 tablet, am. Nitroglycerin Translingual. Spiriva HandiHaler Inhalation, daily- (is taking twice a day most days). Vits, for eye bid. --11:27 Valencia Robbins R.N. Furosemide Oral 20 mg, daily. --11:28 Valencia Robbins R.N. Warfarin Sodium Oral 2.5 mg, daily. --11:28 Valencia Robbins R.N. Bausch and lomb. --11: Valencia Robbins R.N. Calcium chew 500mg x2 daily. --: Valencia Robbins R.N. Loratadine Oral 10 mg, daily. --: Valencia Robbins R.N. Allergies Cortisone. Penicillin. --11: Valencia Robbins R.N. History Arrived by private vehicle. Historian: patient. Accompanied by daughter. Primary physician (Dr. Guevara). ( Pt. appears confused states, "I'm bring the cows in, does she know when the milk comes in?"). Treatment JAVA ANALYST: None. PAST MEDICAL HX: Immunizations: up-to-date. SOCIAL HX: Heavy tobacco smoker (cigarette)- less than 1 pack per day. Alcohol use. (daughter states she is a recovering alcoholic and has not used for over 40 years). No drug use. No infectious disease exposure. ABUSE ASSESSMENT: No report of abuse. NUTRITIONAL RISK ASSESSMENT: The nutritional risk assessment revealed no deficiencies. LEARNING NEEDS ASSESSMENT: The learning needs assessment revealed no barriers. FUNCTIONAL ASSESSMENT: Functional assessment performed: requires assistance with the activities of daily living; uses wheelchair; cognitive impairment- Alzheimer's disease and senile dementia. -- Valencia Robbins R.N. PROBLEMS: Fall. Diabetes Mellitus. GIB - ulcers. COPD - Chronic Obstructive Pulmonary Disease. Myocardial Infarction. Diverticulitis. Osteoporosis. CVA - Cerebrovascular Accident. Atrial Fibrillation. Congestive Heart Failure. Coumadin Toxicity. Atypical Chest Pain. Near Syncope. Arrhythmia. Syncope. [place]. Peptic Ulcer Disease. --11: Valencia Robbins R.N. ADDITIONAL SURGERIES: Appendectomy. Carpal Tunnel Surgery. Hysterectomy. Knee Surgery. --11: Valencia Robbins R.N. Interventions ID band on patient. Transported via wheelchair. --: Valencia Robbins R.N. PHYSICAL ASSESSMENT 11:00. To room via wheelchair. GENERAL / NEURO / PSYCH: Alert. Appears in no acute distress. The patient is disoriented to person, place, time and situation. RESPIRATORY: Respirations not labored. SKIN: Skin is warm and dry. Generalized skin rash (present on arrival). --11:07 Valencia Robbins R.N. NURSING PROGRESS NOTES Patient gowned. Head of bed elevated. Two patient identifiers checked. Call light placed in reach. Side rails up x 2. Bed placed in lowest position. Brakes of bed on. Patient ready for evaluation- chart flagged. --11:07 aVlencia Robbins R.N. Patient ID band checked for patient name, birthdate and medical record number: patient confirmed. Instructions provided to collect clean catch urine and patient verbalized understanding. Catheterized urine collected with return of yellow-colored clear urine; sample sent to lab for urinalysis. Specimen labeled in the presence of the patient (collected by SIDNEY Jaimes). --11:08 Valencia Robbins R.N. 11:25 02/19/2017 Site #1 started via IV in the left wrist with an 20g angiocath, with aseptic technique and good blood return; one attempt. Blood drawn: rainbow set. Labeled in the presence of the patient and sent to the lab. Saline lock flushed with 10 mL saline (accessed by SIDNEY Alfonso). --11:25 Valencia Robbins R.N. hamper maker, pulse oximeter and NIBP monitor placed on patient; icing maker- Lead II; monitor alarms on. --11:26 Valencia Robbins R.N. ( PER daughter: pt. is DNR.). --11:32 Valencia Robbins R.N. Portable chest x-ray performed and shown to the ED physician. --11:35 Valencia Robbins R.N. EKG time: (1143). EKG was ordered, performed by a tech and shown to the ED physician. --11:45 Lynda Meelndez 12:15 02/19/17. BP: 101/66. HR: 83. RR: 13. O2 saturation: 97%. --12:17 Valencia Robbins R.N. Family informed about reason for wait. --12:17 Valencia Robbins R.N. Patient transported to radiology by stretcher with tech. --12:24 Valencia Robbins R.N. 13:15 02/19/2017 Lasix IVP 10 mg given over 2 minute(s) via site #1. Allergies verified and confirmed 5 rights. IV patency established. IV site checked: no pain, redness, or swelling. IV flushed thoroughly pre- and post-medication administration. --13:15 Valencia Robbins R.N. DISPOSITION / DISCHARGE Report was given to a nurse via a phone call. Report included patient's care, treatment, medications, reviewed medication reconcilliation, and condition (including any recent changes or anticipated changes). All questions were answered. --13:52 Valencia Robbins R.N. Admitted to the Critical Care Unit. --13:52 Valencia Robbins R.N. 13:54 02/19/17. BP: 105/55. HR: 88. RR: 19. O2 saturation: 98%. Temp: 97.7 F. Pain level now 0/10. --13:54 Valencia Robbins R.N. Patient's personal items; items were placed in belongings bag, given to the patient and transported with the patient. --13:54 Valencia Robbins R.N. Departure time: 1400. --15:07 Valencia Robbins R.N. 14:00 02/19/2017 Site #[address] upon admission; patent, no pain and no signs of infiltration. No blood return present. Converted to saline lock and flushed with 10 mL saline; flushes easily. --15:08 Valencia Robbins R.N. Locked/Released at 02/19/2017 15:08 by Valencia Robbins R.N.
--- NOTE | 2017-02-19 13:09 | ED ORDER SUMMARY ---
..... Patient: TERI RAMIREZ OrderSheet [facility] VisitID: [id number] [address] [place] [address] 81y, F Registration Date/Time: 02/19/2017 ORDER SHEET Weight: 36.2 kg (estimated) Allergies: Cortisone, Penicillin GENERAL ORDERS: Chest 1V Urgent (11:04 02/19/2017 Isaiah MORALES) (Ack 11:12 Ricci) (11:33 KWilliams R.N.) Technical Support Representative (Continuous) (11:04 02/19/2017 Isaiah MORALES) (11:32 SReitz R.N.) (11:33 KWilliams R.N.) CBC w Diff Urgent (11:02/19/2017 Isaiah MORALES) (Ack 11:12 Ricci) (11:32 SReitz R.N.) (11:33 KWilliams R.N.) CMP Urgent (11:02/19/2017 Isaiah MORALES) (Ack 11:12 Ricci) (11:32 SReitz R.N.) (11:33 KWilliams R.N.) UA-Culture if indicated Urgent (11:04 02/19/2017 Isaiah MORALES) (Ack 11:12 Ricci) (11:32 SReitz R.N.) (11:33 KWilliams R.N.) Amylase Urgent (11:02/19/2017 Isaiah MORALES) (Ack 11:12 Ricci) (11:33 SReitz R.N.) (11:33 KWilliams R.N.) Lipase Urgent (11:04 02/19/2017 Isaiah MORALES) (Ack 11:12 Ricci) (11:33 SReitz R.N.) (11:33 KWilliams R.N.) Urine Drug Screen Urgent (11:02/19/2017 Isaiah MORALES) (Ack 11:12 Ricci) (11:33 SReitz R.N.) (11:33 KWilliams R.N.) CPK Urgent (11:02/19/2017 Isaiah MORLAES) (Ack 11:12 Ricci) (11:33 SReitz R.N.) (11:33 KWilliams R.N.) Troponin-I Urgent (11:04 02/19/2017 Isaiah MORALES) (Ack 11:12 Ricci) (11:33 SReitz R.N.) (11:33 KWilliams R.N.) BNP Urgent (11:04 02/19/2017 Isaiah MORALES) (Ack 11:12 Ricci) (11:33 SReitz R.N.) (11:33 KWilliams R.N.) EKG - ER Stat (11:04 02/19/2017 Isaiah MORALES) (11:32 SReitz R.N.) Pulse oximeter (11:04 02/19/2017 Isaiah MORALES) (11:32 SReitz R.N.) (11:33 KWilliams R.N.) Vitals - Orthostatic (11:04 02/19/2017 Isaiah MORALES) (11:32 SReitz R.N.) PT with INR Urgent (11:11 02/19/2017 Isaiah MORALES) (Ack 11:13 Ricci) (11:33 SReitz R.N.) (11:33 KWilliams R.N.) PTT Urgent (11:11 02/19/2017 Isaiah MORALES) (Ack 11:13 Ricci) (11:33 SReitz R.N.) (11:33 KWilliams R.N.) Digoxin Level Urgent (11:11 02/19/2017 Isaiah MORALES) (Ack 11:13 Ricci) (11:33 SReitz R.N.) (11:33 KWilliams R.N.) CT Head wo Cont Urgent (12:16 02/19/2017 Isaiah MORALES) (Ack 12:20 Ricci) (13:15 SReitz R.N.) MEDICATION ORDERS: IV FLUIDS: IV Saline Lock (11:04 02/19/2017 Isaiah MORALES) (Ack 11:32 SReitz R.N.) (11:37 KWilliams R.N.) Lasix IV 10 mg (NOW) (13:08 02/19/2017 Isaiah MORALES) (Ack 13:09 SReitz R.N.) (13:15 SReitz R.N.) ORDER SHEET NOTES: [Electronically signed by Javon Gordon MD (14:07 02/19/2017)] [Electronically signed by Valencia Robbins R.N. (15:08 02/19/2017)] [Electronically locked/signed by Valencia Robbins R.N. (15:08 02/19/2017)]
--- NOTE | 2017-02-19 13:09 | ED ORDER SUMMARY ---
..... Patient: TERI RAMIREZ OrderSheet [facility] VisitID: [id number] [address] [place] [address] 81y, F Registration Date/Time: 02/19/2017 ORDER SHEET Weight: 36.2 kg (estimated) Allergies: Cortisone, Penicillin GENERAL ORDERS: Chest 1V Urgent (11:04 02/19/2017 Isaiah MORALES) (Ack 11:12 Ricci) (11:33 KWilliams R.N.) Mechanical Engineering Officer (Continuous) (11:04 02/19/2017 Isaiah MORALES) (11:32 SReitz R.N.) (11:33 KWilliams R.N.) CBC w Diff Urgent (11:02/19/2017 Isaiah MORALES) (Ack 11:12 Ricci) (11:32 SReitz R.N.) (11:33 KWilliams R.N.) CMP Urgent (11:02/19/2017 Isaiah MORALES) (Ack 11:12 Ricci) (11:32 SReitz R.N.) (11:33 KWilliams R.N.) UA-Culture if indicated Urgent (11:04 02/19/2017 Isaiah MORALES) (Ack 11:12 Ricci) (11:32 SReitz R.N.) (11:33 KWilliams R.N.) Amylase Urgent (11:02/19/2017 Isaiah MORALES) (Ack 11:12 Ricci) (11:33 SReitz R.N.) (11:33 KWilliams R.N.) Lipase Urgent (11:04 02/19/2017 Isaiah MORALES) (Ack 11:12 Ricci) (11:33 SReitz R.N.) (11:33 KWilliams R.N.) Urine Drug Screen Urgent (11:02/19/2017 Isaiah MORALES) (Ack 11:12 Ricci) (11:33 SReitz R.N.) (11:33 KWilliams R.N.) CPK Urgent (11:02/19/2017 Isaiah MORALES) (Ack 11:12 Ricci) (11:33 SReitz R.N.) (11:33 KWilliams R.N.) Troponin-I Urgent (11:04 02/19/2017 Isaiah MORALES) (Ack 11:12 Ricci) (11:33 SReitz R.N.) (11:33 KWilliams R.N.) BNP Urgent (11:04 02/19/2017 Isaiah MORALES) (Ack 11:12 Ricci) (11:33 SReitz R.N.) (11:33 KWilliams R.N.) EKG - ER Stat (11:04 02/19/2017 Isaiah MORALES) (11:32 SReitz R.N.) Pulse oximeter (11:04 02/19/2017 Isaiah MORALES) (11:32 SReitz R.N.) (11:33 KWilliams R.N.) Vitals - Orthostatic (11:04 02/19/2017 Isaiah MORALES) (11:32 SReitz R.N.) PT with INR Urgent (11:11 02/19/2017 Isaiah MORALES) (Ack 11:13 Ricci) (11:33 SReitz R.N.) (11:33 KWilliams R.N.) PTT Urgent (11:11 02/19/2017 Isaiah MORALES) (Ack 11:13 Ricci) (11:33 SReitz R.N.) (11:33 KWilliams R.N.) Digoxin Level Urgent (11:11 02/19/2017 Isaiah MORALES) (Ack 11:13 Ricci) (11:33 SReitz R.N.) (11:33 KWilliams R.N.) CT Head wo Cont Urgent (12:16 02/19/2017 Isaiah MORALES) (Ack 12:20 Ricci) (13:15 SReitz R.N.) MEDICATION ORDERS: IV FLUIDS: IV Saline Lock (11:04 02/19/2017 Isaiah MORALES) (Ack 11:32 SReitz R.N.) (11:37 KWilliams R.N.) Lasix IV 10 mg (NOW) (13:08 02/19/2017 Isaiah MORALES) (Ack 13:09 SReitz R.N.) (13:15 SReitz R.N.) ORDER SHEET NOTES: [Electronically signed by Javon Gordon MD (14:07 02/19/2017)] [Electronically signed by Valencia Robbins R.N. (15:08 02/19/2017)] [Electronically locked/signed by Valencia Robbins R.N. (15:08 02/19/2017)]
[2017-02-19 14:18] VITALS: BP 110/71
--- NOTE | 2017-02-19 15:09 | ED MAR SUMMARY ---
..... Medication Administration Record [facility] [address] [place] [address] Patient: TERI RAMIREZ Visit ID: [id number] 81y, F Weight: 36.2 kg Height/Length: 61 in BMI: 15.1 ALLERGIES: Cortisone, Penicillin Given 13:15 02/19/2017 Valencia Robbins R.N. Medication Administered: LASIX [IVP], Dose: 10 mg IVP over 2 minute(s), Site: #1 left wrist. Medication Ordered: Lasix IV 10 mg (NOW).
--- NOTE | 2017-02-19 15:09 | ED MED RECONCILIATION SUMMARY ---
Patient: TERI RAMIREZ Medication Reconciliation Report [facility] VisitID: [id number] [address] [place] [address] 81y, F Registration Date/Time: 02/19/2017 Weight: 36.2 kg Height/Length: 61 in. BMI: 15.1 ALLERGIES: Cortisone, Penicillin The patient's Home Medications are listed below: THE FOLLOWING MEDICATIONS NEED TO BE RECONCILED: Bausch and lomb Calcium + D Oral Calcium chew 500mg x2 daily Digoxin Oral (125 mcg) 1 tablet, daily Furosemide Oral 20 mg, daily Loratadine Oral 10 mg, daily MetFORMIN HCl Oral (500 mg) 1/2 tablet, daily Metoprolol Succinate ER Oral (50 mg) 1 tablet, am Nitroglycerin Translingual Spiriva HandiHaler Inhalation, daily-, is taking twice a day most days Vits, for eye bid Warfarin Sodium Oral 2.5 mg, daily The source(s) of the original Home Medication information: Not obtained. The following Medications were given to the patient in the Emergency Department: Lasix [IVP] IVP 10 mg, administered: 02/19/2017 1:15:00 PM The following Medications were prescribed to the patient: None.
--- NOTE | 2017-02-19 15:09 | ED DISCHARGE INSTRUCTIONS ---
Patient: TERI RAMIREZ General Instructions [facility] VisitID: [id number] [address] [place] [address] 81y, F Registration Date/Time: 02/19/2017 Dementia. Acute generalized weakness. Congestive heart failure. Atrial fibrillation. Renal insufficiency. (Electronically signed by Javon Gordon MD 02/19/2017 14:07)
--- NOTE | 2017-02-19 15:09 | ED MED RECONCILIATION SUMMARY ---
Patient: TERI RAMIREZ Medication Reconciliation Report [facility] VisitID: [id number] [address] [place] [address] 81y, F Registration Date/Time: 02/19/2017 Weight: 36.2 kg Height/Length: 61 in. BMI: 15.1 ALLERGIES: Cortisone, Penicillin The patient's Home Medications are listed below: THE FOLLOWING MEDICATIONS NEED TO BE RECONCILED: Bausch and lomb Calcium + D Oral Calcium chew 500mg x2 daily Digoxin Oral (125 mcg) 1 tablet, daily Furosemide Oral 20 mg, daily Loratadine Oral 10 mg, daily MetFORMIN HCl Oral (500 mg) 1/2 tablet, daily Metoprolol Succinate ER Oral (50 mg) 1 tablet, am Nitroglycerin Translingual Spiriva HandiHaler Inhalation, daily-, is taking twice a day most days Vits, for eye bid Warfarin Sodium Oral 2.5 mg, daily The source(s) of the original Home Medication information: Not obtained. The following Medications were given to the patient in the Emergency Department: Lasix [IVP] IVP 10 mg, administered: 02/19/2017 1:15:00 PM The following Medications were prescribed to the patient: None.
--- NOTE | 2017-02-19 15:09 | ED MAR SUMMARY ---
..... Medication Administration Record [facility] [address] [place] [address] Patient: TERI RAMIREZ Visit ID: [id number] 81y, F Weight: 36.2 kg Height/Length: 61 in BMI: 15.1 ALLERGIES: Cortisone, Penicillin Given 13:15 02/19/2017 Valencia Robbins R.N. Medication Administered: LASIX [IVP], Dose: 10 mg IVP over 2 minute(s), Site: #1 left wrist. Medication Ordered: Lasix IV 10 mg (NOW).
--- NOTE | 2017-02-19 15:09 | ED DISCHARGE INSTRUCTIONS ---
Patient: TERI RAMIREZ General Instructions [facility] VisitID: [id number] [address] [place] [address] 81y, F Registration Date/Time: 02/19/2017 Dementia. Acute generalized weakness. Congestive heart failure. Atrial fibrillation. Renal insufficiency. (Electronically signed by Javon Gordon MD 02/19/2017 14:07)
--- NOTE | 2017-02-19 16:40 | NUR ---
PT REFUSED TO HAVE HIS DRESSINGS CHANGED THIS AFTERNOON. I REMINDED THE PT THAT I AM HERE TO HELP HIM HEAL AND THAT IT IS IMPORTANT TO TAKE CARE OF HIS WOUNDS OR THEY WILL JUST GET WORSE AND HIS RESPONSE WAS, "MAYBE LATER."
[2017-02-19] MEDS ORDERED: ALENDRONATE SOD70 MG (17:26)
[2017-02-19] MEDS ORDERED: METOPROLOL SUCC50 MG PO (17:27)
[2017-02-19] MEDS ORDERED: DIGITEK0.125 MG PO (17:28)
[2017-02-19] MEDS ORDERED: FUROSEMIDE20 MG PO (17:28)
[2017-02-19] MEDS ORDERED: COUMADIN2.5 MG PO (17:29)
[2017-02-19] MEDS ORDERED: METFORMIN HCL500 MG PO (17:29)
[2017-02-19] MEDS ORDERED: SPIRIVA18 MCG INH (17:30)
[2017-02-19] MEDS ORDERED: PROAIR HFA IN (17:30)
[2017-02-19] MEDS ORDERED: CALCIUM500 M1 PO (17:32)
[2017-02-19] MEDS ORDERED: MULTIVITAMIN1 TAB PO (17:44)
[2017-02-19] MEDS ORDERED: [UNRECOGNIZED DRUG - OTHER] PO (17:47)
[2017-02-19 18:04] VITALS: BP 103/64
[2017-02-19] MEDS ORDERED: PRESERVISION/LUTEIN (18:06)
--- NOTE | 2017-02-19 18:27 | HISTORY AND PHYSICAL ---
ADMITTED: 02/19/2017 CHIEF COMPLAINT: 1. Weakness and inability to function appropriately at home HISTORY OF PRESENT ILLNESS: The patient is an 81-year-old white female who has developed problems with generalized weakness and decreased ability to function independently. She lives alone in an apartment and has a caregiver who comes in daily. Her caregiver found her in bed this morning and not being able to get up and ambulate around the apartment, and felt she was quite a bit weaker than normal. She may have been a little more confused than normal. She called the patient's daughter or granddaughter. The daughter or granddaughter drove to her apartment and brought her into the emergency department for evaluation. She has not seemed to have fever or chills, or any other new major problems. She did see her primary caregiver, Dr. Guevara, several weeks ago, who felt she was a little on the dehydrated side and encouraged her to drink a lot more liquids and eat quite a lot more. She has not had any recent falls. MEDICAL/SURGICAL HISTORY: Past medical history: Remarkable for ASCVD with history of ME occurring in 1989. She has had atrial fibrillation for quite some time. She also has had problems with adult-onset diabetes, longstanding COPD, remote mild stroke, and history of peptic ulcer disease. She has had a tendency towards osteoporosis as well. Past surgical history is remarkable for appendectomy, carpal tunnel surgery, hysterectomy, left knee surgery for a torn meniscus years ago. MEDICATIONS: Current medications include: 1. Digoxin 0.125 mg daily. 2. Warfarin 2.5 mg daily. 3. Metoprolol succinate 50 mg daily. 4. Nitroglycerin p.r.n. chest pain. 5. Spiriva HandiHaler 1 inhalation once daily. 6. Furosemide 20 mg daily. 7. Calcium tablets 500 mg twice daily. 8. Loratadine 10 mg daily for itching. ALLERGIES: INCLUDE: 1. PREDNISONE. 2. CORTISONE. 3. PENICILLIN. SOCIAL HISTORY: Indicates the patient is single presently. She was for a number of years. She was rather vague about what happened to her and when. She is a long-time smoker and has been smoking half a pack of cigarettes or somewhat less for the last several years. Prior to that, she was smoking a pack of cigarettes daily for at least 50 years. 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 She has worked various jobs and is rather vague about when she stopped working. 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 FAMILY HISTORY: Not really available as the patient does not remember her parents and believes that she was adopted when she was around age 2. REVIEW OF SYSTEMS: HEENT is okay. The patient does not remark any difficulties with her vision. Respiratory rate is okay when using her Spiriva. She has had no recent difficulties with her breathing. Cardiovascular: Okay with no chest pain or edema. Genitourinary: Okay with no problems passing urine and no blood in urine. Extremities: Show no edema or major complaints of joint pain. Neurological: Okay with no focal abnormalities. She does have some memory difficulties. Psychiatric: Has been okay. Skin: Remarkable for some itching. PHYSICAL EXAMINATION: GENERAL: Reveals the patient to be an elderly woman who is in no acute distress. VITAL SIGNS: Temperature is 97.3. Blood pressure is in the 110/71 range with irregularly irregular heart rhythm. Oxygen saturations 94% on room air. Pulse is in the 80- 90 range. HEENT: Head is normal. Ear canals and tympanic membranes are normal. Eyes show normal extraocular movements. Fundi are not well seen. Nose and throat are clear. Oral mucosa is somewhat dry. NECK: Supple without significant adenopathy. There are no distinct bruits. BREASTS: Show no masses. There is no axillary adenopathy. CHEST: Clear, with somewhat decreased breath sounds and I:E ratio of about 1:1. HEART: Reveals an irregularly irregular rhythm. S1 and S2 are normal. There is a grade 1/6 to 2/6 murmur along the left sternal border. There is a grade 2/6 murmur from the apex to the axilla. ABDOMEN: Nontender with no organomegaly or mass. Bowel tones are normal. PELVIC: Not done. RECTAL: Not done. EXTREMITIES: Show no edema. There are trace dorsalis pedis pulses, left and right. NEUROLOGIC: Reveals the patient to be alert and oriented x2. She is not at all sure of the date. She is not able to name the president, though she says she does not like the president. Cranial nerves are intact. There is no drift. Cbyidy-fa-sgiu testing is okay for age and ability to cooperate. SKIN: Shows a number of small scattered excoriations, particularly on the left posterior chest wall area, and lesser involvement of the left posterior chest wall, and lesser involvement of the anterior chest and abdominal wall skin. Extremities show no significant excoriations. LAB/IMAGING: Laboratory studies show white blood cell count to be 8600, hemoglobin is 13.1, hematocrit is 43.7. Pro time/INR is 2.5. Differential shows 73% polys and 17% lymphs. Sodium is 146, potassium 4.9, chloride 103, CO2 29, glucose 116, BUN 31, creatinine 1.8. SGOT is 19, SGPT is 9, lipase is 103, amylase is 18. CPK is 53, troponin I is less than 0.05. Total bilirubin is 0.6. Alkaline phosphatase is 73. Urinalysis shows specific gravity of less than 1.005. There is 2+ blood in the urine with 25-50 red blood cells per high-power field. Chest x-ray shows borderline cardiomegaly with no distinct infiltrate or mass. EKG shows atrial fibrillation with a rate in the 80s to 90s. There is poor R- wave progression. There are no major ST-segment elevations or depressions. There are some T inversions in III, aVF, and lead II. There are also some T inversions in V3 through V6. IMPRESSION: 1. The patient is presenting with weakness, cause is not clear. It is unclear whether she might have mild congestive heart failure which has now resolved or, perhaps, a low blood sugar problem that has resolved. 2. Other longstanding problems include chronic atrial fibrillation with history of arteriosclerotic cardiovascular heart disease. 3. Renal insufficiency, which may reflect an element of dehydration. 4. She has moderate chronic obstructive pulmonary disease with symptoms well controlled with the Spiriva. 5. She has significant memory difficulties, which may be a combination of multi -infarct dementia and Alzheimer's. 6. She is also showing some blood in her urine, which is asymptomatic. PLAN: The patient is admitted for observation. She will be started on very low- flow intravenous fluids for hydration to see if this will improve kidney function parameters. She will have Accu-Chek blood sugars checked before meals and at bedtime to see if she develops any hypoglycemia and to see if she truly needs to be on metformin at this point. She will be scheduled for physical therapy evaluation to assess general strength and ability to function at home. Also, discharge planning consult is ordered. She indicates that she is a NO CODE and would not want to be intubated. She has a POLST form at home. Either her daughter or granddaughter functions as her power of senior trial attorney and are aware and support her choices.
--- NOTE | 2017-02-19 20:19 | NUR ---
RESTING IN BED, ALERT, ORIENTED TO SELF AND PLACE. DENIES ANY DISCOMFORT AT THIS TIME. IVF INFUSING TO L WRIST. TELE AFIB, HR 81.
--- NOTE | 2017-02-19 20:58 | NUR ---
PATIENT LOOKING FOR HER DENTURES AND EYE GLASSES, NOT FOUND IN HER PLASTIC BELONGINGS. PER DAUGHTER LIDA THEY ARE HOME IN PATIENT'S APARTMENT AND WILL BRING TOMORROW.
[2017-02-19 22:49] VITALS: BP 95/55
[2017-02-20 02:07] VITALS: BP 98/54
[2017-02-20 06:50] VITALS: BP 87/49
[2017-02-20 06:58] VITALS: BP 91/59
--- NOTE | 2017-02-20 10:00 | NUR ---
PT ALERT/ORIENTED. DENIES PAIN, NAUSEA AT THIS TIME. UP IN CHAIR. VSS. WILL CONTINUE TO MONITOR.
[2017-02-20 10:12] VITALS: BP 133/93
[2017-02-20 14:16] VITALS: BP 99/55
--- NOTE | 2017-02-20 14:54 | Provider's Discharge Care Plan ---
Problem, Goal, Plan Problem List 1. Weakness generalized Instructions: - follow up with your primary care provider, - encourage PO intake, supplement food with nutritional supplements like Ensure 2. Dementia Instructions: - contact your primary care provider about starting dementia treatment
--- NOTE | 2017-02-20 14:57 | Discharge Summary ---
Discharge Summary Report Admit Date 02/19/17 Discharge Date 02/20/17 Admission Diagnosis weakness and decreased PO intake Discharge Diagnosis weakness, dehydration, altered mental status Brief History The patient is an 81-year-old white female who has developed problems with generalized weakness and decreased ability to function independently. She lives alone in an apartment and has a caregiver who comes in daily. Her caregiver found her in bed this morning and not being able to get up and ambulate around the apartment, and felt she was quite a bit weaker than normal. She may have been a little more confused than normal. She called the patient's daughter or granddaughter. The daughter or granddaughter drove to her apartment and brought her into the emergency department for evaluation. She has not seemed to have fever or chills, or any other new major problems. She did see her primary caregiver, Dr. Guevara, several weeks ago, who felt she was a little on the dehydrated side and encouraged her to drink a lot more liquids and eat quite a lot more. She has not had any recent falls. Hospital Course Patient as mentioned above was profoundly weak and lethargic upon arrival. Patients blood work and body fluids were sent for analysis which did not reveal any chronic condition except for evidence of low protein levels which can be attributed to decreaed po intake. Patient recieved fluids over the course of a day and her blood work remained stable. Patients mentation stabilized and was able to coverse at her baseline. Additionally patient worked with physical therapy, patient was seen to have excellent mobility, transfer abilities, and was able to walk and exceed requirements for assisted living/rehab. Given the lack of medical findings and improvement patient will have to be discharged home. We will provide home health aide and physical therapy. Patient will resume caregiver support. Additionally patient will follow up with her primary care provider in an effort to expediate assisted living options. General Appearance Alert, Cooperative, No acute distress Lungs Normal air movement Cardiovascular Normal S1, Normal S2 Abdomen Soft, No tenderness Neurological Normal speech, Normal tone, Sensation intact Psych/Mental Status Mood NL Lab/Imaging Laboratory Tests 02/20 02/20 02/20 02/20 0415 0415 0415 0415 Chemistry Plasma Sodium (136 - 145 mmol/L) 137 Plasma Potassium (3.5 - 5.1 mmol/L) 3.9 Plasma Chloride (98 - 107 mmol/L) 101 CO2 (Enzymatic) (21 - 32 mmol/L) 31 BUN (7 - 18 mg/dL) 32 Creatinine (0.6 - 1.3 mg/dL) 1.7 Est GFR ( Amer) (mL/min) 37.16 Est GFR (Non-Af Amer) (mL/min) 30.66 Glucose (70 - 110 mg/dL) 85 Hemoglobin A1c % (4.5 - 6.2 %) 6.5 Plasma Calcium (8.5 - 10.1 mg/dL) 8.3 Plasma Magnesium (1.8 - 2.4 mg/dL) 2.0 Creatine Kinase (24 - 260 U/L) 53 Troponin (0.00 - 1.5 ng/mL) <0.05 Free T4 Calculated (0.78 - 4.13 ng/dL) 0.97 Free T3 pg/mL (2.91 - 4.70 pg/mL) 1.7 TSH 3rd Generation (0.30 - 3.74 uIU/mL) 1.839 Hematology WBC (4.5 - 11.5 K/uL) 7.5 RBC (4.00 - 5.20 M/uL) 4.62 Hgb (12.0 - 16.0 gm/dL) 10.6 Hct (36.0 - 46.0 %) 35.4 MCV (80 - 100 fL) 77 MCH (26 - 34 pg) 23 RDW (11.6 - 14.8 %) 20.6 Neut % (Auto) (50 - 75 %) 67.1 Lymph % (Auto) (25 - 40 %) 22.3 [place] % (Auto) (3 - 14 %) 8.3 Eos % (Auto) (0 - 4 %) 2.1 Baso % (Auto) (0 - 2 %) 0.2 Plt Count, EDTA (150 - 400 K/uL) 210 RBC Morphology 1+ ANISOCYTOSIS PUBS MCHC (31 - 37 g/dL) 02/20 1017 Urines Urine Color YELLOW Urine Appearance CLEAR Urine pH (5.0 - 8.0) 6.0 Ur Specific [place] (1.010 - 1.030) 1.010 Urine Protein (NEGATIVE) NEGATIVE Urine Ketones (NEGATIVE) NEGATIVE Urine Blood (NEGATIVE) NEGATIVE Urine Nitrite (NEGATIVE) NEGATIVE Urine Bilirubin (NEGATIVE) NEGATIVE Urine Urobilinogen (0.2 - 1.0 EU/dL) 0.2 Ur Leukocyte Esterase (NEGATIVE) POSITIVE Urine RBC (0 - 1 rbc/hpf) 0-1 Urine WBC (0 - 1 wbc/hpf) 3-5 Ur Epithelial Cells (0 - 5 EPI/hpf) 3-5 Urine Bacteria (NONE SEEN) MODERATE (2+ TO 3+) Urine Glucose (NEGATIVE) NEGATIVE Microbiology Date/Time Procedure - Status Source Growth 02/19 1710 MRSA Screen - RECD NASAL Discharge Instructions/Meds - take medications as prescribed - follow up with your primary care doctor
--- NOTE | 2017-02-20 15:22 | NUR ---
NUTRITION NOTE: Pt admitted wiht dx/o CHF, A fib, dementia, renal insuff, gen weakness. Pt to d/c today. Spoke with pts daughter, doesnt eat because she most likely forgets and that things "dont taste good", generally no appetite. She does not like BOOST or Ensure and sometimes will take [employer] Breakfast Essentials with whole milk. Pt has a caregiver that comes in an hour a day, but daughter states that will likely be changing soon and she will be getting more help. Pts usual body weight was ~118# but unsure how long ago. Gave pt daughter a copy of high calorie high protein diet with a sample meal plan and recipes for high magda foods, puddings, etc. RD to follow up with complete assesment per protocol, avail for further consult prn.
--- NOTE | 2017-02-20 16:02 | NUR ---
PT DISCHARGED WITH DAUGHTER BACK TO ADULT FAMILY HOME. DISCHARGE INSTRUCTIONS GIVEN TO PT AND DAUGHTER. IV DC'D.
--- NOTE | 2017-02-20 16:03 | NUR ---
DAUGHTER HAD BROUGHT IN PT'S GLASSES AND DENTURES. BOTH WENT BACK HOME WITH PT.
== END 2017-02-20 15:50 | disposition home health service (06) ==
LOC: ED SRH 10:55 → CC SRH 13:12 → TRANS SRH 13:12 → CC SRH 14:00
PROVIDERS: ADMIT Emergency Medicine
DX: E86.0 Dehydration (principal); N28.9 Disorder of kidney and ureter, unspecified; R53.1 Weakness; R41.0 Disorientation, unspecified; F03.90 Unspecified dementia, unspecified severity, without behavioral disturbance, psychotic disturbance, mood disturbance, and anxiety; E11.9 Type 2 diabetes mellitus without complications; J44.9 Chronic obstructive pulmonary disease, unspecified; I48.2 Chronic atrial fibrillation; Z79.01 Long term (current) use of anticoagulants; F17.210 Nicotine dependence, cigarettes, uncomplicated; I25.10 Atherosclerotic heart disease of native coronary artery without angina pectoris; I21.3 ST elevation (STEMI) myocardial infarction of unspecified site
CPT/HCPCS: 81460; 83475; 90004; 90047; 90074; 90098; 90100; 90616; 90648; 91023; 91286; 91320; 91672; 92132; 92235; 92530; 92610; 92720; 92760; 92761; 92762; 92763; 92764; 92765; 92766; 92767; 93020; 93140; 94001; 94060; 95059

== ENCOUNTER 2017-03-30 12:09 | Inpatient (IN) | payer OTHER ==
[~2017-03-30] VITALS: Ht 167.6 cm; Wt 51.2 kg
[~2017-03-30 12:09] MED LIST: ALENDRONATE SOD70 MG; CALCIUM500 M1 PO; COUMADIN2.5 MG PO; DIGITEK0.125 MG PO; FUROSEMIDE20 MG PO; METFORMIN HCL500 MG PO; METOPROLOL SUCC50 MG PO; MULTIVITAMIN1 TAB PO; PRESERVISION/LUTEIN; PROAIR HFA IN; SPIRIVA18 MCG INH; [UNRECOGNIZED DRUG - OTHER] PO
--- NOTE | 2017-03-30 13:22 | DIAGNOSTIC IMAGING REPORT ---
PROCEDURE: XR CHEST 1 VIEW INDICATION: ALTERED MENTAL STATUS. A FIB WITH RVR PER HISTORY TECHNIQUE: Portable AP view (1230 hours). COMPARISON: Compared to chest x-ray and 02/19/2017. FINDINGS: Mild worsening in moderate cardiomegaly with pulmonary vascular congestion and mild interstitial changes/edema. Mediastinum is normal. Thorax is normal IMPRESSION: 1. Moderate cardiomegaly with mild to moderate congestive heart failure. 2. Findings discussed with Dr. Todd Moctezuma.
--- NOTE | 2017-03-30 16:32 | DIAGNOSTIC IMAGING REPORT ---
PROCEDURE: CT ABD/PELVIS WITH CONTRAST INDICATION: Right abdominal pain. Congestive heart failure. TECHNIQUE: 125 ml of Isovue 300 were injected intravenously and axial images were obtained of the entire abdomen and pelvis with sagittal and coronal reformations. Because of suboptimal enhancement (due to congestive failure), the patient was returned to CT for repeat axial images with sagittal and coronal re- formations (BUN 23, creatinine 1.2). COMPARISON: Compared to CT abdomen pelvis on 11/19/2012 and chest x-ray earlier in the day (03/30/2017). FINDINGS: ABDOMEN: Gallbladder is contracted with probable moderate wall thickening. Trace ascites. There is moderate cardiomegaly with mild basilar atelectasis and small pleural effusions. Liver, spleen, pancreas, kidneys, are normal. Marked calcified atheromatous changes aorta and mesenteric vessels, no evidence of aneurysm. Bowel pattern is normal. Appendix is not clearly identified, no evidence of inflammatory process. There is an 80% old compression fracture of T12 and 20% old compression fracture of L1. There are bilateral spondylolysis defects at L5 with grade 1 listhesis of L5 on S1. PELVIS: Moderate sigmoid diverticulosis, no evidence of diverticulitis of. Status post hysterectomy. Trace free fluid. IMPRESSION: 1. Moderate cardiomegaly with small pleural effusions consistent with congestive heart failure. 2. Contracted gallbladder with gallbladder wall thickening is nonspecific and may be related to congestive failure, low protein state, gallbladder disease, or ascites. 3. Trace abdominal and pelvic ascites. 4. Moderate sigmoid diverticulosis. No evidence of diverticulitis. 5. Status post hysterectomy. 6. Old compression fractures of the T2 and L1 vertebral bodies (stable). 7. 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 8. Findings discussed with Dr. Moctezuma. All CT scans at this facility use dose modulation, iterative reconstruction, and/or weight-based dosing when appropriate to reduce radiation dose to as low as reasonably achievable.
--- NOTE | 2017-03-30 18:04 | DIAGNOSTIC IMAGING REPORT ---
PROCEDURE: US ABDOMEN ULTRASOUND-LIMITED INDICATION: ABNORMAL CT SCAN FINDINGS WITH GB TECHNIQUE: Hanson scale and color Doppler sonographic images of the abdomen were obtained. COMPARISON: None. FINDINGS: There is moderate gallbladder wall thickening (3 mm). No evidence of gallstones. Small amount of ascites. Common duct is normal (4.8 mm). Portions of the liver, pancreas, and are normal. Right kidney is mildly atrophic (8.1 x 5.1 cm). IMPRESSION: 1. Moderate gallbladder wall thickening is nonspecific but most likely related to congestive heart failure or low protein state. 2. Small amount of ascites. 3. Mild atrophic change of the right kidney 4. Findings discussed with Dr. Todd Moctezuma.
--- NOTE | 2017-03-30 19:02 | Progress Note ---
Subjective General Admission History and Physical Examination Patient Name: Rita Butler Admission Date: March 30, 2017 Primary Care Provider: Kayden Guevara M.D. Attending Physician: Jose Juan Stallings M.D. Admitting Physician: Misael Galan M.D. Code Status: NO CODE Room: [facility] Status: Inpatient, CCU SUBJECTIVE Historian: Patient, Power Of Data Conversion Developer Reliability: Fair Chief Complaint: Shortness of breath, rapid heart rate, weakness History of Present Illness: The patient is a 82-year-old single white female with a significant past medical history of coronary artery disease status post myocardial infarction, peptic ulcer disease, atrial fibrillation, chronic anticoagulation, COPD, adult-onset diabetes mellitus, cerebrovascular disease status post CVA, who presented to [facility] emergency room on the day of admission secondary to complaints of generalized weakness, shortness of breath, and rapid heart rate. [facility] ER evaluation was consistent with atrial fibrillation with rapid ventricular response heart rate 140/m, CHF, exacerbation of COPD, and anemia. Secondary to the above, the patient was admitted by Misael Galan M.D. for further evaluation and treatment. PAST MEDICAL HISTORY Illnesses: 1. Coronary disease status post myocardial infarction 2. CHF 3. COPD 4. Nicotine dependence-smoking 5. Chronic anticoagulation 6. Diabetes mellitus type 2 7. Peptic ulcer disease 8. Osteoporosis Allergies: 1. Prednisone 2. Penicillin Medications: 1. Toprol-XL 50 mg 1 by mouth daily 2. Lasix 20 mg by mouth daily 3. Coumadin 2.5 mg by mouth daily 4. Spiriva one inhalation daily 5. Metformin 250 mg by mouth every morning 6. Pro-air HFA 1-2 inhalations every 6 hours when necessary shortness of breath Surgery: 1. Peptic ulcer disease 1976 2. Appendectomy 1949 3. Carpal tunnel surgery 4. Hysterectomy 5. Left knee surgery secondary to torn meniscus Injuries: 1. Torn meniscus left knee Hospitalizations: 1. For above surgery and medical problems FAMILY HISTORY Parents: 1. Father, unknown, patient adopted 2. Mother, unknown, patient adopted Siblings: 1. The patient has 3 male siblings one of which is history unknown Children: 1. Male, Humza, , 55, cause unknown 2. Male, Yoseph, living, 61, healthy 3. Female, Arleen, living, 59, healthy Other significant family history: None SOCIAL HISTORY 1. Marital Status: Single 2. Roman Catholic: Jew 3. Education: GED with 3 years of college with AA degree in law enforcement 4. 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 Occupational health exposures: None HABITS 1. Tobacco: Cigarettes-150 pack years, continues to smoke 2 cigarettes per day 2. Drugs: None 3. Alcohol: None 4. Caffeine: None HEALTH SUPERVISION Item/Test 1. Not reviewed IMMUNIZATIONS: 1. Pneumococcal: Unknown 2. Influenza: Unknown 3. Tetanus: Unknown ADVANCED DIRECTIVES: 1. Living well: Yes 2. POLST: Yes 3. Code Status: NO CODE 4. Durable Power Data Conversion Developer Health care: Yes 5. Donor card: No REVIEW OF SYSTEMS Remarkable for those things stated in the history of present illness and past medical history. Seventeen point review of system completed with the following notable findings: General: Fatigue, pain, weakness Skin: Rashes/itching, dryness Eyes: Visual loss, decreased visual acuity requiring corrective lenses Mouth: Edentulous Respiratory: Shortness of breath, cough, asthma/COPD Cardiovascular: Palpitations, rapid heart rate, hypertension Genitourinary: Urinary incontinence Gastrointestinal: Loss of appetite Musculoskeletal: Joint stiffness, muscle cramping, backache Neurological: Balance problems, memory loss/dementia, headaches Endocrine: Diabetes mellitus, cold intolerance Psychological: Depression, difficulty sleeping, loss of interest in enjoyable events Physical Exam Vital Signs / I&Os Vital Signs Date Time Temp Pulse Resp B/P Pulse O2 O2 Flow FiO2 Ox Delivery Rate 03/31 0600 100 21 111/69 95 Nasal 1.0 Cannula 03/31 0512 97.9 103 22 111/69 94 Nasal 1.0 Cannula 03/31 0425 111 05/ 0400 115 21 107/62 98 Nasal 1.0 Cannula 05/ 0300 115 21 92 Nasal 1.0 Cannula 03/31 0200 113 21 105/69 93 Nasal 1.0 Cannula 03/31 0100 98.1 111 24 103/75 93 Room Air 03/31 0028 122 05/05 0000 114 21 104/75 92 Nasal 1.0 Cannula 03/30 2300 114 28 104/69 95 Nasal 1.0 Cannula 03/30 2236 129 05/ 2203 129 27 93/65 90 / 2109 98.6 116 24 92/63 92 03/30 2100 Nasal 1.0 Cannula I&O 03/31 0000 03/30 1600 03/30 0800 Intake Total Output Total Balance General Appearance Alert, Oriented X3, Cooperative, No acute distress HEENT Atraumatic, PERRLA, EOMI, Moist mucous membranes Lungs Decreased airmovement bilaterally, minimal basilar rales. Neck Supple, No JVD Cardiovascular Normal S1 and S2, Irregular rhythm, mild tachycardia, No murmur, rubs, or gallops Abdomen Normal bowel sounds, Soft, mild diffuse tenderness. Extremities No cyanosis, No clubbing, No edema Skin Scattered excoriations. Neurological Cranial nerves intact, No lateralizing signs Psych/Mental Status Mental status normal, Mood normal LAB Results Laboratory Tests 03/30 03/30 03/30 1920 1920 1735 Chemistry Hemoglobin A1c % Pending Lactic Acid Pending Toxicology Urine Opiates Screen (NEGATIVE) NEGATIVE Urine Methadone Screen (NEGATIVE) NEGATIVE Ur Barbiturates Screen (NEGATIVE) NEGATIVE U Amphetamin/Meth Scrn (NEGATIVE) NEGATIVE MDMA (Ecstasy) Screen (NEGATIVE) NEGATIVE U Benzodiazepines Scrn (NEGATIVE) NEGATIVE Urine Cocaine Screen (NEGATIVE) NEGATIVE U Cannabinoids Screen (NEGATIVE) NEGATIVE Urines Urine Color YELLOW Urine Appearance CLEAR Urine pH (5.0 - 8.0) 5.0 Ur Specific Pierz (1.010 - 1.030) <= 1.005 Urine Protein (NEGATIVE) NEGATIVE Urine Ketones (NEGATIVE) NEGATIVE Urine Blood (NEGATIVE) NEGATIVE Urine Nitrite (NEGATIVE) NEGATIVE Urine Bilirubin (NEGATIVE) NEGATIVE Urine Urobilinogen (0.2 - 1.0 EU/dL) 0.2 Ur Leukocyte Esterase (NEGATIVE) NEGATIVE Urine RBC (0 - 1 rbc/hpf) NONE SEEN Urine WBC (0 - 1 wbc/hpf) 0-1 Ur Epithelial Cells (0 - 5 EPI/hpf) 0-1 Urine Bacteria (NONE SEEN) TRACE (<1+) Urine Glucose (NEGATIVE) NEGATIVE Urine Comment CULT NOT INDICATED 03/30 03/30 03/30 1245 1244 1244 Chemistry Plasma Sodium (136 - 145 mmol/L) 145 Plasma Potassium (3.5 - 5.1 mmol/L) 4.8 Plasma Chloride (98 - 107 mmol/L) 108 CO2 (Enzymatic) (21 - 32 mmol/L) 24 BUN (7 - 18 mg/dL) 23 Creatinine (0.6 - 1.3 mg/dL) 1.2 Est GFR ( Amer) (mL/min) 55.40 Est GFR (Non-Af Amer) (mL/min) 45.71 Glucose (70 - 110 mg/dL) 119 Lactic Acid (0.4 - 2.0 mmol/L) 2.3 Plasma Calcium (8.5 - 10.1 mg/dL) 7.9 Total Bilirubin (0.0 - 1.0 mg/dL) 0.6 AST (15 - 37 U/L) 63 ALT (12 - 78 U/L) 33 Alkaline Phosphatase (46 - 116 U/L) 101 Troponin (0.00 - 1.5 ng/mL) <0.05 B-Natriuretic Peptide (5 - 100 pg/ml) 1230 Total Protein (6.4 - 8.2 g/dL) 5.7 Albumin (3.3 - 5.0 g/dL) 2.8 TSH 3rd Generation (0.30 - 3.74 uIU/mL) 1.566 Coagulation INR (0.8 - 1.2) 2.5 Hematology WBC (4.5 - 11.5 K/uL) 7.1 RBC (4.00 - 5.20 M/uL) 4.26 Hgb (12.0 - 16.0 gm/dL) 10.4 Hct (36.0 - 46.0 %) 33.7 MCV (80 - 100 fL) 79 MCH (26 - 34 pg) 25 RDW (11.6 - 14.8 %) 24.3 Neut % (Auto) (50 - 75 %) 59.8 Lymph % (Auto) (25 - 40 %) 29.0 [place] % (Auto) (3 - 14 %) 9.9 Eos % (Auto) (0 - 4 %) 1.2 Baso % (Auto) (0 - 2 %) 0.1 Plt Count, EDTA (150 - 400 K/uL) 217 RBC Morphology (6265 A) PLTS ADQ PUBS MCHC (31 - 37 g/dL) 31 Imaging Chest X-ray IMPRESSION: 1. Moderate cardiomegaly with mild to moderate congestive heart failure. 2. Findings discussed with Dr. Todd Moctezuma. Dictated by: GERI MIDDLETON MD D: HAJA;03/30/[address] Abdomen/Pelvis IMPRESSION: 1. Moderate cardiomegaly with small pleural effusions consistent with congestive heart failure. 2. Contracted gallbladder with gallbladder wall thickening is nonspecific and may be related to congestive failure, low protein state, gallbladder disease, or ascites. 3. Trace abdominal and pelvic ascites. 4. Moderate sigmoid diverticulosis. No evidence of diverticulitis. 5. Status post hysterectomy. 6. Old compression fractures of the T2 and L1 vertebral bodies (stable). 7. 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 8. Findings discussed with Dr. Moctezuma. Dictated by: GERI MIDDLETON MD D: HAJA;03/30/17 1632 Abdominal Ultrasound IMPRESSION: 1. Moderate gallbladder wall thickening is nonspecific but most likely related to congestive heart failure or low protein state. 2. Small amount of ascites. 3. Mild atrophic change of the right kidney 4. Findings discussed with Dr. Todd Moctezuma. Dictated by: GERI MIDDLETON MD D: HAJA;03/30/17 1803 Assessment and Plan Problem List 1. Atrial fibrillation Plan -Patient with long-standing history of atrial fibrillation -Patient presents with findings of atrial fibrillation with rapid ventricular response -Check thyroid function -Lopressor IV/by mouth. Consider digoxin for rate control if patient experiences ongoing hypotension with use of beta blockers or calcium channel blockers -Monitor 2. Congestive heart failure Plan -patient with long-standing history of CHF -Ejection fraction noted to be 45% on echocardiogram done in 2011, no notable valvular heart disease -Repeat echocardiogram in a.m. -Low-salt diet -ARB as tolerated -Continue beta erick -Adjustments in meds as appropriate 3. Weakness generalized Plan -Patient with findings of generalized weakness -Patient with mild anemia and dehydration -Monitor -Physical therapy consultation in a.m. -Discharge planning consultation for possible [place] [facility] facility placement 4. Lactic acidosis Plan -Patient with findings of mild lactic acid elevation -No signs of sepsis with normal white count, temperature, and no infectious sources -Monitor 5. Anemia Status Acute Onset Date Unknown Plan -Patient with findings of mild microcytic anemia -H&H 10.4/33.7. MCV 79 -Chek iron profile, B12, folate -Monitor 6. COPD (chronic obstructive pulmonary disease) Status Chronic Onset Date Unknown Plan -Patient with long-standing history of COPD with extensive smoking history -Not problematic at this time -DuoNeb every 6 hours, albuterol when necessary -Supplemental oxygen as necessary -Monitor 7. Nicotine dependence Status Chronic Onset Date Unknown Plan -Patient with extensive history of nicotine dependence/smoking -Cigarette pack-year history of over 150 pack years -NicoDerm patch when necessary -Encourage smoking cessation program post hospitalization Current status: Fair, unstable Anticipated discharge date: Anticipated discharge in 2-3 days Anticipated discharge placement: Home versus [place] [facility] facility Patient care time: Time spent in chart review, patient interview, physical exam, CPOE, and care documentation: 70 minutes Visit to patient today: 2 Complexity of care: High DVT prophylaxis: Coumadin therapeutic dosage GI prophylaxis: Protonix 40 mg by mouth daily Initial patient evaluation: Emergency department Advance care plan: Advance care plan established. CODE STATUS-No Code, DNI/DNR. ACP note entered. E&M Codes Admission: Inpt-High/72681
--- NOTE | 2017-03-30 19:36 | ED ORDER SUMMARY ---
..... Patient: TERI RAMIREZ OrderSheet [facility] VisitID: [id number] [place] [address] 82y, F Registration Date/Time: 03/30/2017 ORDER SHEET Weight: 43.5 kg (stated) Allergies: Cortisone, Penicillin GENERAL ORDERS: Chest 1V Urgent (12:03/30/2017 Katelin Lopez) (Ack 12:17 Vandana ER Tech1) (12:57 EHassan R.N.) (12:58 RFay) [employer] (Continuous) (altered level of conc) (12:03/30/2017 Katelin Lopez) (Ack 12:17 Vandana ER Tech1) (12:57 EHassan R.N.) CBC w Diff Urgent (12:03/30/2017 Katelin Lopez) (Ack 12:17 Vandana ER Tech1) (12:57 EHassan R.N.) CMP Urgent (12:03/30/2017 Katelin Lopez) (Ack 12:17 Vandana ER Tech1) (12:57 EHassan R.N.) UA-Culture if indicated Urgent (12:03/30/2017 Katelin Lopez) (Ack 12:17 Vandana ER Tech1) (18:35 EHassan R.N.) PT with INR Urgent (12:03/30/2017 Katelin Lopez) (Ack 12:17 Vandana ER Tech1) (12:57 EHassan R.N.) Troponin-I Urgent (12:03/30/2017 Katelin Lopez) (Ack 12:17 Vandana ER Tech1) (12:57 EHassan R.N.) Urine Drug Screen Urgent (12:03/30/2017 Katelin Lopez) (Ack 12:17 Vandana ER Tech1) (18:35 EHassan R.N.) TSH Urgent (12:03/30/2017 Katelin Lopez) (Ack 12:17 Vandana ER Tech1) (12:57 EHassan R.N.) Lactate, Serum Urgent (12:15 03/30/2017 Katelin Lopez) (Ack 12:17 IJurca ER Tech1) (12:57 EHassan R.N.) EKG - ER Stat (12:15 03/30/2017 Katelin Lopez) (Ack 12:17 IJurca ER Tech1) (12:57 EHassan R.N.) Pulse oximeter (12:15 03/30/2017 Katelin Lopez) (Ack 12:17 IJurca ER Tech1) (12:57 EHassan R.N.) CT Abd/Pel w Cont (No) (N/A) Urgent (13:16 03/30/2017 Katelin Lopez) (Ack 13:20 OSMARurcbarbie ER Tech1) (14:58 RFay) BNP Urgent (13:32 03/30/2017 Katelin Lopez) (Ack 13:33 IJurca ER Tech1) (13:39 EHassan R.N.) US Abdomen Limited (No) Urgent (16:02 03/30/2017 Katelin Lopez) (Ack 16:04 RKaruga) (17:22 EHassan R.N.) (17:22 IJurca ER Tech1) MEDICATION ORDERS: Metoprolol PO 100 mg (HIGH ALERT MEDICATION, NOW) (16:27 03/30/2017 Katelin Lopez) (Ack 16:59 LSullivan R.N.) (17:02 LSullivan R.N.) IV FLUIDS: IV NS : initial bolus 500 mL (1000 mL/hr), then none - for X1 (NOW) (12:15 03/30/2017 Katelin Lopez) (12:59 EHassan R.N.) Metoprolol IV 2.5 mg (HIGH ALERT MEDICATION, NOW) (12:30 03/30/2017 Katelin Lopez) (13:18 EHassan R.N.) IV NS : initial bolus 500 mL (1000 mL/hr), then none - for X1 (NOW) (13:32 03/30/2017 Katelin Lopez) (13:39 EHassan R.N.) Metoprolol IV 2.5 mg (HIGH ALERT MEDICATION, NOW) (13:32 03/30/2017 Katelin Lopez) (13:40 Lynda R.N.) Metoprolol IV 2.5 mg (HIGH ALERT MEDICATION, NOW) (14:06 03/30/2017 Katelin Lopez) (14:13 EHjacqueline R.N.) Metoprolol IV 2.5 mg (HIGH ALERT MEDICATION, NOW) (14:56 03/30/2017 Katelin Lopez) (15:01 Lynda R.N.) ORDER SHEET NOTES: [Electronically signed by Jeni Rosenberg R.N. (23:26 03/30/2017)] [Electronically signed by Todd Moctezuma Dr. (00:41 03/31/2017)] [Electronically locked/signed by Jeni Rosenberg R.N. (23:03/30/2017)]
--- NOTE | 2017-03-30 19:36 | ED CLINICAL REPORT ---
Clinical Report - Physicians/Mid Levels [facility] [address] [place] [address] 03/30/2017 12:11 Patient: TERI RAMIREZ Time Seen: 1210. Arrived- By ambulance. Historian- patient. HISTORY OF PRESENT ILLNESS Chief Complaint: DECREASED MENTAL STATUS. (appeared "lethargic"). This started today and is still present. It was abrupt in onset and has been constant but is not gone now. (home health nurse checked on her and felt she was worse today). The patient was not found unresponsive. No alcohol recently or recent drug use. No weakness, numbness or recent fall. Similar symptoms previously: None. Recent medical care: Not recently seen/assessed. REVIEW OF SYSTEMS No chest pain or skin rash. All systems otherwise negative, except as recorded above. PAST HISTORY See nurses notes. Medications: Metoprolol Succinate ER Oral (Tablet Extended Release 24 Hour 50 mg) 1 tablet, am. Nitroglycerin Translingual. Spiriva HandiHaler Inhalation, daily- (is taking twice a day most days). Warfarin Sodium Oral 2.5 mg, daily. Furosemide Oral 20 mg, daily. MetFORMIN HCl Oral (Tablet 500 mg) 1/2 tablet, daily. Allergies: Cortisone. Penicillin. SOCIAL HISTORY Smoker- current status unknown. No alcohol use or drug use. No recent travel. Is a local resident. ADDITIONAL NOTES The nursing notes have been reviewed. PHYSICAL EXAM Vital Signs: 03/30/2017 12:19 BP: 104/72. HR: 140. RR: 15. O2 saturation: 93%. Temp: 98.7 F. Pain level now: 0/10. Blood pressure normal. Tachycardic. Oxygen saturation normal. Appearance: Alert. No acute distress. (non-toxic). Head: Head atraumatic. Eyes: Pupils equal, round and reactive to light. ENT: Normal ENT inspection. Airway intact. Moist mucous membranes. Pharynx normal. Neck: Normal inspection. Neck supple. No meningeal signs. CVS: Tachycardia. Abnormal rhythm. Heart sounds normal. Pulses normal. Respiratory: No respiratory distress. Breath sounds normal. Abdomen: Soft and nontender. No organomegaly. Skin: Skin warm and dry. Normal skin color. No rash. Normal skin turgor. Extremities: Extremities exhibit normal ROM. No lower extremity edema. Neuro: Alert. Mood/affect normal. Speech normal. Cranial nerves normal (as tested). No cerebellar findings. No motor deficit. No sensory deficit. Reflexes normal. LABS, X-RAYS, AND EKG EKG: Atrial fibrillation (narrow-complex) (130). Normal QRS complex. Normal ST and T waves, QT and QTc. The study has been interpreted contemporaneously. The study has been independently viewed by me. The EKG appears to be a good tracing. Chest X-ray: (PROCEDURE: XR CHEST 1 VIEW INDICATION: ALTERED MENTAL STATUS. A FIB WITH RVR PER HISTORY TECHNIQUE: Portable AP view (1230 hours). COMPARISON: Compared to chest x-ray and 02/19/2017. FINDINGS: Mild worsening in moderate cardiomegaly with pulmonary vascular congestion and mild interstitial changes/edema. Mediastinum is normal. Thorax is normal IMPRESSION: 1. Moderate cardiomegaly with mild to moderate congestive heart failure.). Views: AP (portable). The X-rays were independently viewed by me and interpreted by the radiologist. The X-rays were discussed with the radiologist (via phone and pacs). CT Abdomen - Pelvis: PROCEDURE: CT ABD/PELVIS WITH CONTRAST INDICATION: Right abdominal pain. Congestive heart failure. TECHNIQUE: 125 ml of Isovue 300 were injected intravenously and axial images were obtained of the entire abdomen and pelvis with sagittal and coronal reformations. Because of suboptimal enhancement (due to congestive failure), the patient was returned to CT for repeat axial images with sagittal and coronal re-formations (BUN 23, creatinine 1.2). COMPARISON: Compared to CT abdomen pelvis on 11/19/2012 and chest x-ray earlier in the day (03/30/2017). FINDINGS: ABDOMEN: Gallbladder is contracted with probable moderate wall thickening. Trace ascites. There is moderate cardiomegaly with mild basilar atelectasis and small pleural effusions. Liver, spleen, pancreas, kidneys, are normal. Marked calcified atheromatous changes aorta and mesenteric vessels, no evidence of aneurysm. Bowel pattern is normal. Appendix is not clearly identified, no evidence of inflammatory process. There is an 80% old compression fracture of T12 and 20% old compression fracture of L1. There are bilateral spondylolysis defects at L5 with grade 1 listhesis of L5 on S1. PELVIS: Moderate sigmoid diverticulosis, no evidence of diverticulitis of. Status post hysterectomy. Trace free fluid. IMPRESSION: 1. Moderate cardiomegaly with small pleural effusions consistent with congestive heart failure. 2. Contracted gallbladder with gallbladder wall thickening is nonspecific and may be related to congestive failure, low protein state, gallbladder disease, or ascites. 3. Trace abdominal and pelvic ascites. 4. Moderate sigmoid diverticulosis. No evidence of diverticulitis. 5. Status post hysterectomy. 6. Old compression fractures of the T2 and L1 vertebral bodies (stable). 7. 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 Abdomen - pelvic CT performed with IV contrast. The study was independently viewed by me and interpreted by the radiologist. The study was discussed with the radiologist (via phone and pacs). Abdominal Sonogram: (PROCEDURE: US ABDOMEN ULTRASOUND-LIMITED INDICATION: ABNORMAL CT SCAN FINDINGS WITH GB TECHNIQUE: Hanson scale and color Doppler sonographic images of the abdomen were obtained. COMPARISON: None. FINDINGS: There is moderate gallbladder wall thickening (3 mm). No evidence of gallstones. Small amount of ascites. Common duct is normal (4.8 mm). Portions of the liver, pancreas, and are normal. Right kidney is mildly atrophic (8.1 x 5.1 cm). IMPRESSION: 1. Moderate gallbladder wall thickening is nonspecific but most likely related to congestive heart failure or low protein state. 2. Small amount of ascites. 3. Mild atrophic change of the right kidney). The study was independently viewed by me and interpreted by the radiologist. The study was discussed with the radiologist (via pacs). Laboratory Tests: UA-Culture if indicated: (MARIANN: 03/30/2017 17:35) ( MsgRcvd 03/30/2017 17:56) Final results Test Result Flag Units (Reference) URINE COLOR YELLOW URINE APPEARANCE CLEAR URINE GLUCOSE NEGATIVE (NEGATIVE) URINE BILIRUBIN NEGATIVE (NEGATIVE) URINE KETONE NEGATIVE (NEGATIVE) URINE SPECIFIC GRAVITY <= 1.005 L (1.010-1.030) URINE PH 5.0 (5.0-8.0) URINE PROTEIN NEGATIVE (NEGATIVE) URINE UROBILINOGEN 0.2 EU/dL (0.2-1.0) URINE NITRITE NEGATIVE (NEGATIVE) URINE BLOOD NEGATIVE (NEGATIVE) URINE LEUK ESTERASE NEGATIVE (NEGATIVE) URINE RBC NONE SEEN rbc/hpf (0-1) URINE WBC 0-1 wbc/hpf (0-1) HYALINE CAST 1-3/LPF1+ MUCOUSCALCIUM OXALATE CRYSTALS 1-3/HPF URINE EPITHELIAL CELLS 0-1 EPI/hpf (0-5) URINE BACTERIA TRACE (<1+) (NONE SEEN) URINE COMMENT CULT NOT INDICATED URINE CULTURES ARE SET-UP BASED ON THE FOLLOWING CRITERIA:POSITIVE NITRITEPOSITIVE LEUKOCYTE ESTERASEGREATER THAN 10 WHITE BLOOD CELLSMODERATE (2+) OR GREATER BACTERIA CBC w Diff: (MARIANN: 03/30/2017 12:44) ( [facility] [place] 03/30/[place] 14:02) Final results Test Result Flag Units (Reference) WHITE BLOOD COUNT 7.1 K/uL (4.5-11.5) RED BLOOD COUNT 4.26 M/uL (4.00-5.20) HEMOGLOBIN 10.4 L gm/dL (12.0-16.0) HEMATOCRIT 33.7 L % (36.0-46.0) MEAN CELL VOLUME 79 L fL (80-100) MEAN CORPUSCULAR HGB 25 L pg (26-34) MEAN CORPUSCULAR HGB CONC 31 g/dL (31-37) RED CELL DISTRIBUTION WIDTH 24.3 H % (11.6-14.8) PLATELET COUNT 217 K/uL (150-400) NEUTROPHIL % 59.8 % (50-75) LYMPH % 29.0 % (25-40) MONO % 9.9 % (3-14) EOSINOPHIL % 1.2 % (0-4) BASOPHIL % 0.1 % (0-2) RBC MORPHOLOGY 4+ ANISOCYTOSIS~~2+ TAMIE CELLS~~1+ SCHISTOCYTES~~1+ OVALOCYTES~~PLTS ADQ PT with INR: (MARIANN: 03/30/2017 12:44) ( [facility] [place] 13:03) Final results Test Result Flag Units (Reference) INR 2.5 H (0.8-1.2) Low Intensity Therapy: INR 1.5-2.0 PT range 18.5-23.1Mod.Intensity Therapy: INR 2.0-3.0 PT range 23.1-31.5High Intensity Therapy: INR 2.5-3.5 PT range 27.4-35.5High Intensity Therapy 2: INR 3.0-4.0 PT range 31.5-39.3 [id number]: (MARIANN: 03/30/2017 12:15) ( [facility] 03/30/2017 21:02) Final results Test Result Flag Units (Reference) IRON 28 L ug/dL (35-150) TOTAL IRON BINDING CAPACITY 361 ug/dL (260-445) % SATURATION 8 L % (15-50) [id number]: (MARIANN: 03/30/2017 19:20) ( [facility] 03/30/2017 19:44) Final results Test Result Flag Units (Reference) CALCULATED A1C 6.3 H % (4.5-6.2) The [place] [employer] recommends that aprimary goal of therapy should be a HbA1c of <7% and thatphysicians should reevaluate the treatment regimen inpatients with HbA1c values consistently >8%. ESTIMATED AVERAGE GLUCOSE 134 mg/dL Lactate, Serum: (MARIANN: 03/30/2017 19:20) ( [facility] 03/30/2017 19:55) Final results Test Result Flag Units (Reference) LACTIC ACID 2.9 H mmol/L (0.4-2.0) CRITICAL RESULTS CALLEDCalled to SIDNEY STANTON,ER 03/30/17 1955Were 2 patient identifiers used? YWas the result read back? Y BNP: (MARIANN: 03/30/2017 12:45) ( [facility] 03/30/2017 14:06) Final results Test Result Flag Units (Reference) B-TYPE NATRIURETIC PEPTIDE 1230 H pg/ml (5-100) Urine Drug Screen: (MARIANN: 03/30/2017 17:35) ( [facility] 03/30/2017 18:01) Final results Test Result Flag Units (Reference) AMPHETAMINE/METHAMPHETAMINE NEGATIVE (NEGATIVE) BARBITURATE NEGATIVE (NEGATIVE) BENZODIAZEPINE NEGATIVE (NEGATIVE) CANNABINOID NEGATIVE (NEGATIVE) COCAINE NEGATIVE (NEGATIVE) ECSTASY NEGATIVE (NEGATIVE) METHADONE NEGATIVE (NEGATIVE) OPIATE NEGATIVE (NEGATIVE) The urine drug screen is a qualitative screening test fordrug overdose and abuse. All screen results should beconsidered as presumptive.Drugs screened for are as follows:BenzodiazepinesCocaineAmphetamines/MetamphetaminesTHC (Tetrahydrocannabinol)OpiatesBarbituratesEcstasyMethadonePositive results are unconfirmed. For confirmation, notifythe lab for the specimen to be sent to the reference lab.All confirmations must be performed by a differentmethodology.The ingestion of natural herbal and plant productscontaining Ephedra/Ephedra metabolites can produce in urineone or more substances capable of cross reacting withamphetamine/methamphetamine immunoassays. These testsprovide a preliminary result only. A more specificalternative chemical method must be used to obtain aconfirmed analytical result. Lactate, Serum: (MARIANN: 03/30/2017 12:44) ( [facility] 03/30/2017 14:24) Final results Test Result Flag Units (Reference) LACTIC ACID 2.3 H mmol/L (0.4-2.0) CRITICAL RESULTS CALLEDCalled to ROMY 03/30/17 1422Were 2 patient identifiers used? YESWas the result read back? YES CMP: (MARIANN: 03/30/2017 12:44) ( [facility] 03/30/2017 21:31) Final results Test Result Flag Units (Reference) GLUCOSE 119 H mg/dL (70-110) BUN 23 H mg/dL (7-18) CREATININE 1.2 mg/dL (0.6-1.3) Estimated GFR 45.71 mL/min Estimated GFR- 55.40 mL/min Note: Persistent reduction over 3 months in eGFR<60 mL/min/1.73 m2 defines CKD. Patients with eGFR values>=60 mL/min/1.73 m2 may also have CKD if evidence ofpersistent proteinuria. Additional information may be foundat [email or web address].org. SODIUM 145 mmol/L (136-145) POTASSIUM 4.8 mmol/L (3.5-5.1) CHLORIDE 108 H mmol/L (98-107) CARBON DIOXIDE 24 mmol/L (21-32) CALCIUM 7.9 L mg/dL (8.5-10.1) TOTAL PROTEIN 5.7 L g/dL (6.4-8.2) ALBUMIN 2.8 L g/dL (3.3-5.0) BILIRUBIN, TOTAL 0.6 mg/dL (0.0-1.0) ALKALINE PHOSPHATASE 101 U/L (46-116) AST (SGOT) 63 H U/L (15-37) ALT (SGPT) 33 U/L (12-78) TROPONIN I <0.05 ng/mL (0.00-1.5) TROPONIN REFERENCE RANGE:<0.1 NEGATIVE0.1-1.5 INDETERMINANT>1.5 POSITIVE THYROID STIMULATING HORMONE 1.566 uIU/mL (0.30-3.74) VITAMIN B12 463 pg/mL (211-946) FOLATE 41.4 ng/mL (>3.0) . PROGRESS AND PROCEDURES Course of Care: The patient is a pleasant 82-year-old female past medical history significant for congestive heart failure and A. fib with RVR. Patient is presenting with symptoms of lethargy. Patient likely having symptoms of lethargy secondary to A. fib with RVR. Patient will be managed at this time with beta blockers for the A. fib with RVR. Patient's blood pressure is noted to be normotensive. We'll monitor closely. Lavatory studies for potential triggers for the patient to go into RVR have been ordered including urinalysis, chest x-ray, and electrolyte studies. We'll also check patient's TSH levels. Patient and the patient's part studio manager who is at bedside per patient's request is agreeable to the treatment plan. During patient's course here in the emergency department should required several doses of IV metoprolol 2.5 mg. Because of the patient's normal tensive blood pressure, was concern for patient becoming hypotensive. Patient's blood pressure did decrease to 90s over 40s while here in the emergency department. Would be concerned for additional rate control medications causing reduced blood pressure and severe hypotension. Because of the patient's elevated BNP in addition to her symptoms here in the emergency department, would be concern for producing fluid overload and did have gentle fluid boluses while here in the emergency department. The concern for fluid overload and no further fluids were provided here in the emergency department. I had a discussion with the patient's case with bank compliance officer director of institutional giving Dr. Lopez. No further recommendations made at this time however did recommend patient have 100 mg of metoprolol by mouth and patient should tolerate this medication will despite the patient's blood pressure. During patient's course here in the emergency Department patient was monitored further andnoted to have A. fib with the RVR that was persistent. Because of the patient's hypotension as well as congestive heart failure, was difficult to control here in the emergency department. It did improve slightly while here. Patient with initial heart rate in the 140s and 130s and now is in the 110s and 120s. Patient however is not a stable outpatient candidate. Patient will need to be monitored here in the emergency department for optimization of her heart rate as well as monitoring of her blood pressure at this time. Discussed case with the hospitalist Maggie at the patient. No further recommendations made. Patient be admitted to the intensive. Them. Discussed with the patient and the power of studio manager the plan of care including the diagnosis and workup. All questions have been answered. The power of studio manager and the patient are agreeable to the treatment plan. Prior to patient's departure from the emergency department she is noted to be resting in bed and in no acute distress. Patient is nontoxic. Do not feel patient has serious bacterial illness for the triggered the patient's symptoms. Per the power of studio manager, the patient has not been eating or drinking well recently. We'll be concern for malnutrition and dehydration triggering the patient's A. fib with RVR given ttient has no other signs of infection as been afebrile here in the emergency department. Of note, patient also did not report any pain on examination however did mentioned to nursing staff the patient is having right lower quadrant abdominal pain. Patient was reevaluated and found to be nontoxic however did have some discomfort located in the right lower quadrant. Patient was evaluated with a CT scan of the abdomen and pelvis does not show any acute abnormalities however does have signs of gallbladder abnormality which is likely due to the patient's congestive heart failure. Per radiology, however would recommend patient be evaluated with ultrasound. Ultrasound was obtained which did not show any signs of gallbladder abnormalityrequiring surgery. Patient is also not tender in this area and patients with findings consistent with congestive heart failure. No further workup/treatment needed at this time in regards to patient's gallbladder. We'll monitor on an inpatient basis. Did not fill patient is a surgical abdomen at this time. Of note, this physician from the emergency Department was slightly delayed secondary to patient being unable to produce a urine sample. Critical care performed (65 minutes). Time is exclusive of separately billable procedures. Time includes: direct patient care, patient reassessment, coordination of patient care, interpretation of data (laboratory data), review of patient's medical records, medical consultation, family consultation regarding treatment decisions and documentation of patient care. Consult obtained from cardiology. Disposition: Admitted to the Critical Care Unit. CLINICAL IMPRESSION a fib with rvr congestive heart failure lactic acidosis hypotension abdominal pain acute right lower quadrant. (Electronically signed by Todd Moctezuma Dr. 03/31/2017 0:41)
--- NOTE | 2017-03-30 19:36 | ED CLINICAL REPORT ---
Clinical Report - Physicians/Mid Levels [facility] [address] [place] [address] 03/30/2017 12:11 Patient: TERI RAMIREZ Time Seen: 1210. Arrived- By ambulance. Historian- patient. HISTORY OF PRESENT ILLNESS Chief Complaint: DECREASED MENTAL STATUS. (appeared "lethargic"). This started today and is still present. It was abrupt in onset and has been constant but is not gone now. (home health nurse checked on her and felt she was worse today). The patient was not found unresponsive. No alcohol recently or recent drug use. No weakness, numbness or recent fall. Similar symptoms previously: None. Recent medical care: Not recently seen/assessed. REVIEW OF SYSTEMS No chest pain or skin rash. All systems otherwise negative, except as recorded above. PAST HISTORY See nurses notes. Medications: Metoprolol Succinate ER Oral (Tablet Extended Release 24 Hour 50 mg) 1 tablet, am. Nitroglycerin Translingual. Spiriva HandiHaler Inhalation, daily- (is taking twice a day most days). Warfarin Sodium Oral 2.5 mg, daily. Furosemide Oral 20 mg, daily. MetFORMIN HCl Oral (Tablet 500 mg) 1/2 tablet, daily. Allergies: Cortisone. Penicillin. SOCIAL HISTORY Smoker- current status unknown. No alcohol use or drug use. No recent travel. Is a local resident. ADDITIONAL NOTES The nursing notes have been reviewed. PHYSICAL EXAM Vital Signs: 03/30/2017 12:19 BP: 104/72. HR: 140. RR: 15. O2 saturation: 93%. Temp: 98.7 F. Pain level now: 0/10. Blood pressure normal. Tachycardic. Oxygen saturation normal. Appearance: Alert. No acute distress. (non-toxic). Head: Head atraumatic. Eyes: Pupils equal, round and reactive to light. ENT: Normal ENT inspection. Airway intact. Moist mucous membranes. Pharynx normal. Neck: Normal inspection. Neck supple. No meningeal signs. CVS: Tachycardia. Abnormal rhythm. Heart sounds normal. Pulses normal. Respiratory: No respiratory distress. Breath sounds normal. Abdomen: Soft and nontender. No organomegaly. Skin: Skin warm and dry. Normal skin color. No rash. Normal skin turgor. Extremities: Extremities exhibit normal ROM. No lower extremity edema. Neuro: Alert. Mood/affect normal. Speech normal. Cranial nerves normal (as tested). No cerebellar findings. No motor deficit. No sensory deficit. Reflexes normal. LABS, X-RAYS, AND EKG EKG: Atrial fibrillation (narrow-complex) (130). Normal QRS complex. Normal ST and T waves, QT and QTc. The study has been interpreted contemporaneously. The study has been independently viewed by me. The EKG appears to be a good tracing. Chest X-ray: (PROCEDURE: XR CHEST 1 VIEW INDICATION: ALTERED MENTAL STATUS. A FIB WITH RVR PER HISTORY TECHNIQUE: Portable AP view (1230 hours). COMPARISON: Compared to chest x-ray and 02/19/2017. FINDINGS: Mild worsening in moderate cardiomegaly with pulmonary vascular congestion and mild interstitial changes/edema. Mediastinum is normal. Thorax is normal IMPRESSION: 1. Moderate cardiomegaly with mild to moderate congestive heart failure.). Views: AP (portable). The X-rays were independently viewed by me and interpreted by the radiologist. The X-rays were discussed with the radiologist (via phone and pacs). CT Abdomen - Pelvis: PROCEDURE: CT ABD/PELVIS WITH CONTRAST INDICATION: Right abdominal pain. Congestive heart failure. TECHNIQUE: 125 ml of Isovue 300 were injected intravenously and axial images were obtained of the entire abdomen and pelvis with sagittal and coronal reformations. Because of suboptimal enhancement (due to congestive failure), the patient was returned to CT for repeat axial images with sagittal and coronal re-formations (BUN 23, creatinine 1.2). COMPARISON: Compared to CT abdomen pelvis on 11/19/2012 and chest x-ray earlier in the day (03/30/2017). FINDINGS: ABDOMEN: Gallbladder is contracted with probable moderate wall thickening. Trace ascites. There is moderate cardiomegaly with mild basilar atelectasis and small pleural effusions. Liver, spleen, pancreas, kidneys, are normal. Marked calcified atheromatous changes aorta and mesenteric vessels, no evidence of aneurysm. Bowel pattern is normal. Appendix is not clearly identified, no evidence of inflammatory process. There is an 80% old compression fracture of T12 and 20% old compression fracture of L1. There are bilateral spondylolysis defects at L5 with grade 1 listhesis of L5 on S1. PELVIS: Moderate sigmoid diverticulosis, no evidence of diverticulitis of. Status post hysterectomy. Trace free fluid. IMPRESSION: 1. Moderate cardiomegaly with small pleural effusions consistent with congestive heart failure. 2. Contracted gallbladder with gallbladder wall thickening is nonspecific and may be related to congestive failure, low protein state, gallbladder disease, or ascites. 3. Trace abdominal and pelvic ascites. 4. Moderate sigmoid diverticulosis. No evidence of diverticulitis. 5. Status post hysterectomy. 6. Old compression fractures of the T2 and L1 vertebral bodies (stable). 7. 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 Abdomen - pelvic CT performed with IV contrast. The study was independently viewed by me and interpreted by the radiologist. The study was discussed with the radiologist (via phone and pacs). Abdominal Sonogram: (PROCEDURE: US ABDOMEN ULTRASOUND-LIMITED INDICATION: ABNORMAL CT SCAN FINDINGS WITH GB TECHNIQUE: Hanson scale and color Doppler sonographic images of the abdomen were obtained. COMPARISON: None. FINDINGS: There is moderate gallbladder wall thickening (3 mm). No evidence of gallstones. Small amount of ascites. Common duct is normal (4.8 mm). Portions of the liver, pancreas, and are normal. Right kidney is mildly atrophic (8.1 x 5.1 cm). IMPRESSION: 1. Moderate gallbladder wall thickening is nonspecific but most likely related to congestive heart failure or low protein state. 2. Small amount of ascites. 3. Mild atrophic change of the right kidney). The study was independently viewed by me and interpreted by the radiologist. The study was discussed with the radiologist (via pacs). Laboratory Tests: UA-Culture if indicated: (MARIANN: 03/30/2017 17:35) ( MsgRcvd 03/30/2017 17:56) Final results Test Result Flag Units (Reference) URINE COLOR YELLOW URINE APPEARANCE CLEAR URINE GLUCOSE NEGATIVE (NEGATIVE) URINE BILIRUBIN NEGATIVE (NEGATIVE) URINE KETONE NEGATIVE (NEGATIVE) URINE SPECIFIC GRAVITY <= 1.005 L (1.010-1.030) URINE PH 5.0 (5.0-8.0) URINE PROTEIN NEGATIVE (NEGATIVE) URINE UROBILINOGEN 0.2 EU/dL (0.2-1.0) URINE NITRITE NEGATIVE (NEGATIVE) URINE BLOOD NEGATIVE (NEGATIVE) URINE LEUK ESTERASE NEGATIVE (NEGATIVE) URINE RBC NONE SEEN rbc/hpf (0-1) URINE WBC 0-1 wbc/hpf (0-1) HYALINE CAST 1-3/LPF1+ MUCOUSCALCIUM OXALATE CRYSTALS 1-3/HPF URINE EPITHELIAL CELLS 0-1 EPI/hpf (0-5) URINE BACTERIA TRACE (<1+) (NONE SEEN) URINE COMMENT CULT NOT INDICATED URINE CULTURES ARE SET-UP BASED ON THE FOLLOWING CRITERIA:POSITIVE NITRITEPOSITIVE LEUKOCYTE ESTERASEGREATER THAN 10 WHITE BLOOD CELLSMODERATE (2+) OR GREATER BACTERIA CBC w Diff: (MARIANN: 03/30/2017 12:44) ( [facility] 03/30/2017 14:02) Final results Test Result Flag Units (Reference) WHITE BLOOD COUNT 7.1 K/uL (4.5-11.5) RED BLOOD COUNT 4.26 M/uL (4.00-5.20) HEMOGLOBIN 10.4 L gm/dL (12.0-16.0) HEMATOCRIT 33.7 L % (36.0-46.0) MEAN CELL VOLUME 79 L fL (80-100) MEAN CORPUSCULAR HGB 25 L pg (26-34) MEAN CORPUSCULAR HGB CONC 31 g/dL (31-37) RED CELL DISTRIBUTION WIDTH 24.3 H % (11.6-14.8) PLATELET COUNT 217 K/uL (150-400) NEUTROPHIL % 59.8 % (50-75) LYMPH % 29.0 % (25-40) MONO % 9.9 % (3-14) EOSINOPHIL % 1.2 % (0-4) BASOPHIL % 0.1 % (0-2) RBC MORPHOLOGY 4+ ANISOCYTOSIS~~2+ TAMIE CELLS~~1+ SCHISTOCYTES~~1+ OVALOCYTES~~PLTS ADQ PT with INR: (MARIANN: 03/30/2017 12:44) ( [facility] 03[facility] 13[facility]03[facility] Final results Test Result Flag Units (Reference) INR 2.5 H (0.8-1.2) Low Intensity Therapy: INR 1.5-2.0 PT range 18.5-23.1Mod.Intensity Therapy: INR 2.0-3.0 PT range 23.1-31.5High Intensity Therapy: INR 2.5-3.5 PT range 27.4-35.5High Intensity Therapy 2: INR 3.0-4.0 PT range 31.5-39.3 [id number]: (MARIANN: 03/30/2017 12:15) ( [facility] 03/30/2017 21:02) Final results Test Result Flag Units (Reference) IRON 28 L ug/dL (35-150) TOTAL IRON BINDING CAPACITY 361 ug/dL (260-445) % SATURATION 8 L % (15-50) [id number]: (MARIANN: 03/30/2017 19:20) ( [facility] 03/30/2017 19:44) Final results Test Result Flag Units (Reference) CALCULATED A1C 6.3 H % (4.5-6.2) The [place] [employer] recommends that aprimary goal of therapy should be a HbA1c of <7% and thatphysicians should reevaluate the treatment regimen inpatients with HbA1c values consistently >8%. ESTIMATED AVERAGE GLUCOSE 134 mg/dL Lactate, Serum: (MARIANN: 03/30/2017 19:20) ( [facility] 03/30/2017 19:55) Final results Test Result Flag Units (Reference) LACTIC ACID 2.9 H mmol/L (0.4-2.0) CRITICAL RESULTS CALLEDCalled to SIDNEY STANTON,ER 03/30/17 1955Were 2 patient identifiers used? YWas the result read back? Y BNP: (MARIANN: 03/30/2017 12:45) ( [facility] 03/30/2017 14:06) Final results Test Result Flag Units (Reference) B-TYPE NATRIURETIC PEPTIDE 1230 H pg/ml (5-100) Urine Drug Screen: (MARIANN: 03/30/2017 17:35) ( [facility] 03/30/2017 18:01) Final results Test Result Flag Units (Reference) AMPHETAMINE/METHAMPHETAMINE NEGATIVE (NEGATIVE) BARBITURATE NEGATIVE (NEGATIVE) BENZODIAZEPINE NEGATIVE (NEGATIVE) CANNABINOID NEGATIVE (NEGATIVE) COCAINE NEGATIVE (NEGATIVE) ECSTASY NEGATIVE (NEGATIVE) METHADONE NEGATIVE (NEGATIVE) OPIATE NEGATIVE (NEGATIVE) The urine drug screen is a qualitative screening test fordrug overdose and abuse. All screen results should beconsidered as presumptive.Drugs screened for are as follows:BenzodiazepinesCocaineAmphetamines/MetamphetaminesTHC (Tetrahydrocannabinol)OpiatesBarbituratesEcstasyMethadonePositive results are unconfirmed. For confirmation, notifythe lab for the specimen to be sent to the reference lab.All confirmations must be performed by a differentmethodology.The ingestion of natural herbal and plant productscontaining Ephedra/Ephedra metabolites can produce in urineone or more substances capable of cross reacting withamphetamine/methamphetamine immunoassays. These testsprovide a preliminary result only. A more specificalternative chemical method must be used to obtain aconfirmed analytical result. Lactate, Serum: (MARIANN: 03/30/2017 12:44) ( [facility] 03/30/2017 14:24) Final results Test Result Flag Units (Reference) LACTIC ACID 2.3 H mmol/L (0.4-2.0) CRITICAL RESULTS CALLEDCalled to ROMY 03/30/17 1422Were 2 patient identifiers used? YESWas the result read back? YES CMP: (MARIANN: 03/30/2017 12:44) ( [facility] 03/30/2017 21:31) Final results Test Result Flag Units (Reference) GLUCOSE 119 H mg/dL (70-110) BUN 23 H mg/dL (7-18) CREATININE 1.2 mg/dL (0.6-1.3) Estimated GFR 45.71 mL/min Estimated GFR- 55.40 mL/min Note: Persistent reduction over 3 months in eGFR<60 mL/min/1.73 m2 defines CKD. Patients with eGFR values>=60 mL/min/1.73 m2 may also have CKD if evidence ofpersistent proteinuria. Additional information may be foundat www.kidney.org. SODIUM 145 mmol/L (136-145) POTASSIUM 4.8 mmol/L (3.5-5.1) CHLORIDE 108 H mmol/L (98-107) CARBON DIOXIDE 24 mmol/L (21-32) CALCIUM 7.9 L mg/dL (8.5-10.1) TOTAL PROTEIN 5.7 L g/dL (6.4-8.2) ALBUMIN 2.8 L g/dL (3.3-5.0) BILIRUBIN, TOTAL 0.6 mg/dL (0.0-1.0) ALKALINE PHOSPHATASE 101 U/L (46-116) AST (SGOT) 63 H U/L (15-37) ALT (SGPT) 33 U/L (12-78) TROPONIN I <0.05 ng/mL (0.00-1.5) TROPONIN REFERENCE RANGE:<0.1 NEGATIVE0.1-1.5 INDETERMINANT>1.5 POSITIVE THYROID STIMULATING HORMONE 1.566 uIU/mL (0.30-3.74) VITAMIN B12 463 pg/mL (211-946) FOLATE 41.4 ng/mL (>3.0) . PROGRESS AND PROCEDURES Course of Care: The patient is a pleasant 82-year-old female past medical history significant for congestive heart failure and A. fib with RVR. Patient is presenting with symptoms of lethargy. Patient likely having symptoms of lethargy secondary to A. fib with RVR. Patient will be managed at this time with beta blockers for the A. fib with RVR. Patient's blood pressure is noted to be normotensive. We'll monitor closely. Lavatory studies for potential triggers for the patient to go into RVR have been ordered including urinalysis, chest x-ray, and electrolyte studies. We'll also check patient's TSH levels. Patient and the patient's part employment attorney who is at bedside per patient's request is agreeable to the treatment plan. During patient's course here in the emergency department should required several doses of IV metoprolol 2.5 mg. Because of the patient's normal tensive blood pressure, was concern for patient becoming hypotensive. Patient's blood pressure did decrease to 90s over 40s while here in the emergency department. Would be concerned for additional rate control medications causing reduced blood pressure and severe hypotension. Because of the patient's elevated BNP in addition to her symptoms here in the emergency department, would be concern for producing fluid overload and did have gentle fluid boluses while here in the emergency department. The concern for fluid overload and no further fluids were provided here in the emergency department. I had a discussion with the patient's case with parts washer money order clerk Dr. Lopez. No further recommendations made at this time however did recommend patient have 100 mg of metoprolol by mouth and patient should tolerate this medication will despite the patient's blood pressure. During patient's course here in the emergency Department patient was monitored further andnoted to have A. fib with the RVR that was persistent. Because of the patient's hypotension as well as congestive heart failure, was difficult to control here in the emergency department. It did improve slightly while here. Patient with initial heart rate in the 140s and 130s and now is in the 110s and 120s. Patient however is not a stable outpatient candidate. Patient will need to be monitored here in the emergency department for optimization of her heart rate as well as monitoring of her blood pressure at this time. Discussed case with the hospitalist Maggie at the patient. No further recommendations made. Patient be admitted to the intensive. Them. Discussed with the patient and the power of employment attorney the plan of care including the diagnosis and workup. All questions have been answered. The power of employment attorney and the patient are agreeable to the treatment plan. Prior to patient's departure from the emergency department she is noted to be resting in bed and in no acute distress. Patient is nontoxic. Do not feel patient has serious bacterial illness for the triggered the patient's symptoms. Per the power of employment attorney, the patient has not been eating or drinking well recently. We'll be concern for malnutrition and dehydration triggering the patient's A. fib with RVR given ttient has no other signs of infection as been afebrile here in the emergency department. Of note, patient also did not report any pain on examination however did mentioned to nursing staff the patient is having right lower quadrant abdominal pain. Patient was reevaluated and found to be nontoxic however did have some discomfort located in the right lower quadrant. Patient was evaluated with a CT scan of the abdomen and pelvis does not show any acute abnormalities however does have signs of gallbladder abnormality which is likely due to the patient's congestive heart failure. Per radiology, however would recommend patient be evaluated with ultrasound. Ultrasound was obtained which did not show any signs of gallbladder abnormalityrequiring surgery. Patient is also not tender in this area and patients with findings consistent with congestive heart failure. No further workup/treatment needed at this time in regards to patient's gallbladder. We'll monitor on an inpatient basis. Did not fill patient is a surgical abdomen at this time. Of note, this physician from the emergency Department was slightly delayed secondary to patient being unable to produce a urine sample. Critical care performed (65 minutes). Time is exclusive of separately billable procedures. Time includes: direct patient care, patient reassessment, coordination of patient care, interpretation of data (laboratory data), review of patient's medical records, medical consultation, family consultation regarding treatment decisions and documentation of patient care. Consult obtained from cardiology. Disposition: Admitted to the Critical Care Unit. CLINICAL IMPRESSION a fib with rvr congestive heart failure lactic acidosis hypotension abdominal pain acute right lower quadrant. (Electronically signed by Todd Moctezuma Dr. 03/31/2017 0:41)
--- NOTE | 2017-03-30 19:36 | ED ORDER SUMMARY ---
..... Patient: TERI RAMIREZ OrderSheet [facility] VisitID: [id number] [address] [place] [address] 82y, F Registration Date/Time: 03/30/2017 ORDER SHEET Weight: 43.5 kg (stated) Allergies: Cortisone, Penicillin GENERAL ORDERS: Chest 1V Urgent (12:03/30/2017 Katelin Lopez) (Ack 12:17 Vandana ER Tech1) (12:57 EHassan R.N.) (12:58 RFay) Manager Test (Continuous) (altered level of conc) (12:03/30/2017 Katelin Lopez) (Ack 12:17 Vandana ER Tech1) (12:57 EHassan R.N.) CBC w Diff Urgent (12:03/30/2017 Katelin Lopez) (Ack 12:17 Vandana ER Tech1) (12:57 EHassan R.N.) CMP Urgent (12:03/30/2017 Katelin Lopez) (Ack 12:17 Vandana ER Tech1) (12:57 EHassan R.N.) UA-Culture if indicated Urgent (12:03/30/2017 Katelin Lopez) (Ack 12:17 Vandana ER Tech1) (18:35 EHassan R.N.) PT with INR Urgent (12:03/30/2017 Katelin Lopez) (Ack 12:17 Vandana ER Tech1) (12:57 EHassan R.N.) Troponin-I Urgent (12:03/30/2017 Katelin Lopez) (Ack 12:17 Vandana ER Tech1) (12:57 EHassan R.N.) Urine Drug Screen Urgent (12:03/30/2017 Katelin Lopez) (Ack 12:17 Vandana ER Tech1) (18:35 EHassan R.N.) TSH Urgent (12:03/30/2017 Katelin Lopez) (Ack 12:17 Vandana ER Tech1) (12:57 EHassan R.N.) Lactate, Serum Urgent (12:15 03/30/2017 Katelin Lopez) (Ack 12:17 IJurca ER Tech1) (12:57 EHassan R.N.) EKG - ER Stat (12:15 03/30/2017 Katelin Lopez) (Ack 12:17 IJurca ER Tech1) (12:57 EHassan R.N.) Pulse oximeter (12:15 03/30/2017 Katelin Lopez) (Ack 12:17 IJurca ER Tech1) (12:57 EHassan R.N.) CT Abd/Pel w Cont (No) (N/A) Urgent (13:16 03/30/2017 Katelin Lopez) (Ack 13:20 OSMARurcbarbie ER Tech1) (14:58 RFay) BNP Urgent (13:32 03/30/2017 Katelin Lopez) (Ack 13:33 IJurca ER Tech1) (13:39 EHassan R.N.) US Abdomen Limited (No) Urgent (16:02 03/30/2017 Katelin Lopez) (Ack 16:04 RKaruga) (17:22 EHassan R.N.) (17:22 IJurca ER Tech1) MEDICATION ORDERS: Metoprolol PO 100 mg (HIGH ALERT MEDICATION, NOW) (16:27 03/30/2017 Katelin Lopez) (Ack 16:59 LSullivan R.N.) (17:02 LSullivan R.N.) IV FLUIDS: IV NS : initial bolus 500 mL (1000 mL/hr), then none - for X1 (NOW) (12:15 03/30/2017 Katelin Lopez) (12:59 EHassan R.N.) Metoprolol IV 2.5 mg (HIGH ALERT MEDICATION, NOW) (12:30 03/30/2017 Katelin Lopez) (13:18 EHassan R.N.) IV NS : initial bolus 500 mL (1000 mL/hr), then none - for X1 (NOW) (13:32 03/30/2017 Katelin Lopez) (13:39 EHassan R.N.) Metoprolol IV 2.5 mg (HIGH ALERT MEDICATION, NOW) (13:32 03/30/2017 Katelin Lopez) (13:40 Lynda R.N.) Metoprolol IV 2.5 mg (HIGH ALERT MEDICATION, NOW) (14:06 03/30/2017 Katelin Lopez) (14:13 EHjacqueline R.N.) Metoprolol IV 2.5 mg (HIGH ALERT MEDICATION, NOW) (14:56 03/30/2017 Katelin Lopez) (15:01 Lynda R.N.) ORDER SHEET NOTES: [Electronically signed by Jeni Rosenberg R.N. (23:26 03/30/2017)] [Electronically signed by Todd Moctezuma Dr. (00:41 03/31/2017)] [Electronically locked/signed by Jeni Rosenberg R.N. (23:03/30/2017)]
--- NOTE | 2017-03-30 19:36 | ED NURSING NOTES ---
Clinical Report - Nurses [facility] [address] [place] [address] 03/30/2017 12:11 Patient: TERI RAMIREZ TRIAGE Triage time late entry - 1203 PM. Acuity: LEVEL 2. Chief Complaint: DIZZINESS (Tachy). Alert. No acute distress. SEPSIS SCREEN: Sepsis Screen. Negative (no infection suspected/documented). SOUTH COMA SCORE: [place] Coma Scale: 15- eyes open spontaneously (4); best verbal response- oriented x 4 (5); best motor response- obeys commands (6). --13:29 Jeni Rosenberg R.N. 12:19 03/30/17. BP: 104/72. HR: 140. RR: 15. O2 saturation: 93%. Temp: 98.7 F (oral). Pain level now: 0/10. --13:29 Jeni Rosenberg R.N. Weight: 43.5 kg stated. Height/Length: 64 inches Per Patient. BMI: 16.5. --13:03 Jeni Rosenberg R.N. Medications Furosemide Oral 20 mg, daily. MetFORMIN HCl Oral (Tablet 500 mg) 1/2 tablet, daily. --12:23 Jeni Rosenberg R.N. Metoprolol Succinate ER Oral (Tablet Extended Release 24 Hour 50 mg) 1 tablet, am. Nitroglycerin Translingual. Spiriva HandiHaler Inhalation, daily- (is taking twice a day most days). Warfarin Sodium Oral 2.5 mg, daily. --12:23 Jeni Rosenberg R.N. Medication/allergy information source: the patient's family. --13:29 Jeni Rosenberg R.N. Allergies Cortisone. Penicillin. --12:23 Jeni Rosenberg R.N. History Arrived by EMS. Historian: patient and family. Accompanied by family. Primary physician (Dr. Villa). ( Pt brought by EMS called by home health nurse which comes in a couple of times a week to "check up on her" EMS stated that she was found to have low oxygenation, fast HR and weak. Pt states "feeling fine" denies cough, fever, chills, loss of appetite. Her daughter states that she has noted loss of appetite and not hydrating well.). This started today. She has had weakness. No fever, cough, difficulty breathing or skin rash. Denies muscle aches. Treatment [employer]: Took aspirin. (325 mg by EMS). See EMS report. PAST MEDICAL HX: Immunizations: up-to-date. SOCIAL HX: No drug use. No infectious disease exposure. ABUSE ASSESSMENT: No report of abuse. SELF HARM ASSESSMENT: A self harm assessment was performed. The patient answered "no" to the question "Do you have thoughts of harming or killing yourself?" and "Have you recently had thoughts about harming or killing others?". FALL RISK ASSESSMENT: Fall risk assessment completed. No fall risk identified. NUTRITIONAL RISK ASSESSMENT: The nutritional risk assessment revealed no deficiencies. FUNCTIONAL ASSESSMENT: Functional assessment: no impairments noted. LEARNING NEEDS ASSESSMENT: The learning needs assessment revealed no barriers. SKIN INTEGRITY ASSESSMENT: Skin integrity risk assessment completed. No skin integrity risk identified. --13:29 Jeni Rosenberg R.N. SOCIAL HX: Current every day smoker (cigarette). Alcohol use. Patient is a recovering alcoholic. No drug use. --13:30 Jeni Rosenberg R.N. PROBLEMS: Renal Insufficiency. Dementia. Weakness. Fall. Diabetes Mellitus. GIB - ulcers. COPD - Chronic Obstructive Pulmonary Disease. Myocardial Infarction. Diverticulitis. Osteoporosis. CVA - Cerebrovascular Accident. Atrial Fibrillation. Congestive Heart Failure. Atypical Chest Pain. Near Syncope. Arrhythmia. Syncope. Peptic Ulcer Disease. --12:27 Jeni Rosenberg R.N. ADDITIONAL SURGERIES: Appendectomy. Carpal Tunnel Surgery. Hysterectomy. Knee Surgery. --12:27 Jeni Rosenberg R.N. Interventions ID band on patient. --13:29 Jeni Rosenberg R.N. PHYSICAL ASSESSMENT To room via stretcher. GENERAL / NEURO / PSYCH: Alert. Oriented X 4. RESPIRATORY: Respirations not labored. Right mid- and anterior chest wall tenderness. The tenderness is well-localized. Decreased breath sounds posteriorly and in the bases bilaterally; decreased breath sounds in the right mid-lung posteriorly and upper lung posteriorly; decreased breath sounds in the left mid-lung posteriorly and in the bases bilaterally and upper lung posteriorly. CVS: Capillary refill less than 2 seconds. Pulses within normal limits. GI / : Abdomen soft and nontender. No abdominal tenderness or distention. EXTREMITIES: No lower extremity edema. SKIN: Skin is pale. Skin is warm. Poor skin turgor. --13:13 Jeni Rosenberg R.N. NURSING PROGRESS NOTES 12:33 03/30/2017 Site #1 accessed indwelling PIV line in the right using a 20g needle (Placed by EMS). --12:58 Jeni Rosenberg R.N. 12:49 03/30/2017 Started bag #1 500 mL IV Fluids IV NS (Saline); at 500 mL/hr over 1 hour(s) via site #1 via dial-a-flow. Allergies verified and confirmed 5 rights. IV patency established. IV site checked: no pain, redness, or swelling. IV flushed thoroughly pre- and post-medication administration. --12:59 Jeni Rosenberg R.N. 13:18 03/30/2017 Metoprolol (Metoprolol Tartrate) IVP 2.5 mg given over 5 minute(s) via site #1. Allergies verified and confirmed 5 rights. IV patency established. IV site checked: no pain, redness, or swelling. IV flushed thoroughly pre- and post-medication administration. IVP given by RN. --13:18 Jeni Rosenberg R.N. Cardiac rhythm: sinus tachycardia. The initial plan of care for this patient has been created This plan of care was discussed with the patient and family. air sampling and monitoring, pulse oximeter and NIBP monitor placed on patient. Patient gowned. Warming measures: blanket applied. Reassurance given. Reassessment after oxygen and fluids administered. She is calm. Overall patient status is the same- she states feels the same. ( Pt does complaint of Right lower quadrant pain, MD aware. Attempted to cath, unable to get any urine out, IV fluids infusing as ordered.). GENERAL / NEURO / PSYCH: Denies headache or anxiety. RESPIRATORY: Denies difficulty breathing. CVS: Cardiac rhythm: sinus tachycardia. GI / : Denies nausea. Two patient identifiers checked. Call light placed in reach. Side rails up x 2. Bed placed in lowest position. Brakes of bed on. --13:20 Jeni Rosenberg R.N. 13:00 03/30/17. BP: 101/77. HR: 137. RR: 22. O2 saturation: 100% on nasal cannula at 2 liters/minute. Pain level now: 05/06. --13:20 Jeni Rosenberg R.N. 13:23 03/30/17. BP: 98/72 (small adult cuff) taken on the left arm, via an automated monitor, while lying. HR: 130. RR: 26. O2 saturation: 100% on nasal cannula at 2 liters/minute. Pain level now: 04/05. --13:27 Jeni Rosenberg R.N. Cardiac rhythm: sinus tachycardia. air sampling and monitoring, pulse oximeter and NIBP monitor placed on patient. Reassurance given. CVS: Denies chest pain. Two patient identifiers checked. --13:27 Jeni Rosenberg R.N. 12:45 03/30/17. BP: 93/74 (small adult cuff) taken on the left arm, via an automated monitor, while lying. HR: 128. RR: 15. O2 saturation: 100% on nasal cannula at 2 liters/minute. Pain level now: 04/05. --13:28 Jeni Rosenberg R.N. late entry - 12:45. --13:28 Jeni Rosenberg R.N. 13:34 03/30/2017 IV Fluids IV NS Discontinued: bag #1 infused. Total amount infused: 500 mL. IV patency established. IV site checked: no pain, redness, or swelling. IV flushed thoroughly. --13:39 Jeni Rosenberg R.N. 13:39 03/30/2017 Started bag #1 500 mL IV Fluids IV NS (Saline); at 500 mL/hr over 1 hour(s) via site #1 via IV pump. Allergies verified and confirmed 5 rights. IV patency established. IV site checked: no pain, redness, or swelling. IV flushed thoroughly pre- and post-medication administration. --13:39 Jeni Rosenberg R.N. 13:40 03/30/2017 Metoprolol (Metoprolol Tartrate) IVP 2.5 mg given over 5 minute(s) via site #1. Allergies verified and confirmed 5 rights. IV patency established. IV site checked: no pain, redness, or swelling. IV flushed thoroughly pre- and post-medication administration. IVP given by RN. --13:40 Jeni Rosenberg R.N. Cardiac rhythm: atrial fibrillation. Monitoring of patient in place. Reassurance given. Reassessment after fluids administered and medication administered. She is calm and has had no adverse reaction. Overall patient status is the same- she states feels the same. RESPIRATORY: Denies difficulty breathing. CVS: Denies chest pain. Two patient identifiers checked. Call light placed in reach. Side rails up. --13:41 Jeni Rosenberg R.N. 13:40 03/30/17. BP: 93/61 (small adult cuff) taken on the left arm, via an automated monitor, while lying. HR: 129. RR: 21. O2 saturation: 98% on room air. Pain level now: 04/05. --13:41 Jeni Rosenberg R.N. ( Another dose of lopressor given as ordered tolerated well, will monitor HR, pt denies CP, fluids infusing, need a UA). --13:46 Jeni Rosenberg R.N. 14:09 03/30/17. BP: 96/70. HR: 125. RR: 24. O2 saturation: 100%. Pain level now: 04/05. --14:12 Jeni Rosenberg R.N. Cardiac rhythm: atrial fibrillation. air sampling and monitoring, pulse oximeter and NIBP monitor placed on patient. Reassurance given. Reassessment after fluids administered. She is calm and resting quietly. Overall patient status is improved- she states feels better. ( Pt does have periods of forgetfulness. family at bedside, MD aware of pt's HR still at 130's more lopressor given as ordered. Will monitor). GENERAL / NEURO / PSYCH: Denies headache or anxiety. RESPIRATORY: Denies difficulty breathing. CVS: Denies chest pain. GI / : Denies nausea. Two patient identifiers checked. Call light placed in reach. --14:12 Jeni Rosenberg R.N. 13:48 03/30/2017 Metoprolol IVP Response: no adverse reaction. --14:13 Jeni Rosenberg R.N. 14:03 03/30/2017 Metoprolol IVP Response: no adverse reaction. --14:13 Jeni Rosenberg R.N. 14:13 03/30/2017 Metoprolol (Metoprolol Tartrate) IVP 2.5 mg given over 5 minute(s) via site #1. Allergies verified and confirmed 5 rights. IV patency established. IV site checked: no pain, redness, or swelling. IV flushed thoroughly pre- and post-medication administration. IVP given by RN. --14:13 Jeni Rosenberg R.N. EKG time: (12:41 PM). EKG was performed by a tech and shown to the ED physician. --14:51 Violetta Landers 14:55 03/30/17. BP: 93/49. HR: 117. RR: 15. O2 saturation: 94%. Pain level now: 510. --14:57 Jeni Rosenberg R.N. Reassurance given. Reassessment after medication administered. She is calm and resting quietly and has had no adverse reaction. Overall patient status is the same- she states feels better. CVS: Denies chest pain. Two patient identifiers checked. Call light placed in reach. --14:57 Jeni Rosenberg R.N. 15:03/30/2017 Metoprolol (Metoprolol Tartrate) IVP 2.5 mg given over 5 minute(s) via site #1. Allergies verified and confirmed 5 rights. IV patency established. IV site checked: no pain, redness, or swelling. IV flushed thoroughly pre- and post-medication administration. IVP given by RN. --15:01 Jeni Rosenberg R.N. 15:01 03/30/2017 IV Fluids IV NS Discontinued: bag #1. Total amount infused: 500 mL. IV patency established. IV site checked: no pain, redness, or swelling. IV flushed thoroughly. --15:01 Jeni Rosenberg R.N. Cardiac rhythm: atrial fibrillation. --16:02 Jeni Rosenberg R.N. 15:36 03/30/17. BP: 96/54 (small adult cuff) taken on the left arm, via an automated monitor, while lying. HR: 112. RR: 14. O2 saturation: 96% on room air. Temp: 98.3 F (oral). Pain level now: 03/06. --16:02 Jeni Rosenberg R.N. 15:56 03/30/2017 Metoprolol IVP Response: no adverse reaction. --16:21 Jeni Rosenberg R.N. 17:02 03/30/2017 Metoprolol PO 100 mg given. Confirmed 5 rights. --17:02 Hali Carpenter R.N. 17:10 03/30/17. ( Pt given a turkey sandwich and apple juice.). --17:10 Hali Carpenter R.N. Cardiac rhythm: atrial fibrillation. air sampling and monitoring, pulse oximeter and NIBP monitor placed on patient. Reassurance given. The patient is calm and resting quietly. RESPIRATORY: Denies difficulty breathing. CVS: Denies chest pain. --17:18 Jeni Rosenberg R.N. 17:00 03/30/17. BP: 103/61 (small adult cuff) taken on the left arm, via an automated monitor, while lying. HR: 130. RR: 14. O2 saturation: 96% on room air. Pain level now: 02/03. --17:18 Jeni Rosenberg R.N. 18:39 03/30/2017 Site #1 reassessed; patent, infusing well and no signs of infection or infiltration. Converted to saline lock. Flushed with 10 mL saline. --18:39 Jeni Rosenberg R.N. Cardiac rhythm: atrial fibrillation. air sampling and monitoring, pulse oximeter and NIBP monitor placed on patient. Reassurance given. The patient is calm and resting quietly. Overall patient status is the same. ( pt aware of being admitted family updated.). RESPIRATORY: Denies difficulty breathing. CVS: Denies chest pain. Patient identifiers checked. Call light placed in reach. Side rails up x 2. Bed placed in lowest position. --18:40 Jeni Rosenberg R.N. 18:35 03/30/17. BP: 98/71 (small adult cuff) taken on the left arm, via an automated monitor, while lying. HR: 111. RR: 23. O2 saturation: 94% on room air. Temp: 97.8 F (oral). Pain level now: 02/03. --18:40 Jeni oRsenberg R.N. Cardiac rhythm: atrial fibrillation. air sampling and monitoring, pulse oximeter and NIBP monitor placed on patient. Reassurance given. ( Dr. Galan at bedside, family updated. Comfort provided). Two patient identifiers checked. Call light placed in reach. Side rails up. Patient waiting for admit bed. --19:30 Jeni Rosenberg R.N. 19:27 03/30/17. BP: 92/61 (small adult cuff) taken on the left arm, via an automated monitor, while lying. HR: 120. RR: 15. O2 saturation: 92% on room air. Pain level now: 01/06. --19:30 Jeni Rosenberg R.N. Cardiac rhythm: atrial fibrillation. Reassurance given. The patient is calm and resting quietly. GENERAL / NEURO / PSYCH: Denies headache or anxiety. RESPIRATORY: Denies difficulty breathing. CVS: Denies chest pain. GI / : Denies nausea. Two patient identifiers checked. Call light placed in reach. --20:34 Jeni Rosenberg R.N. 20:31 03/30/17. BP: 95/74 (small adult cuff) taken on the left arm, via an automated monitor, while lying. HR: 126. RR: 17. O2 saturation: 94% on room air. Temp: 98.3 F (oral). Pain level now: 01/06. --20:34 Jeni Rosenberg R.N. DISPOSITION / DISCHARGE late entry - 21:10 PM. Departure time: 2109 PM. Transferred. Report was given to a nurse via a fax. Report included patient's care, treatment, medications, reviewed medication reconcilliation, and condition (including any recent changes or anticipated changes). All questions were answered. Report was acknowledged and care was transferred. (SIDNEY Ferreira in ccu). ( Pt transferred safely to unit, all belongings with patient. IV site a bit tender, flushed with good blood returned, RN aware). --23:25 Jeni Rosenberg R.N. Locked/Released at 03/30/2017 23:26 by Jeni Rosenberg R.N.
[2017-03-30 21:09] VITALS: BP 92/63
[2017-03-30 22:03] VITALS: BP 93/65
[2017-03-30 23:00] VITALS: BP 104/69
[2017-03-31] VITALS (21 sets, daily range): BP systolic 94–121; BP diastolic 47–75
--- NOTE | 2017-03-31 00:42 | ED MED RECONCILIATION SUMMARY ---
Patient: TERI RAMIREZ Medication Reconciliation Report [facility] VisitID: [id number] [address] [place] [address] 82y, F Registration Date/Time: 03/30/2017 Weight: 43.5 kg Height/Length: 64 in. BMI: 16.5 ALLERGIES: Cortisone, Penicillin The patient's Home Medications are listed below: THE FOLLOWING MEDICATIONS NEED TO BE RECONCILED: Furosemide Oral 20 mg, daily MetFORMIN HCl Oral (500 mg) 1/2 tablet, daily Metoprolol Succinate ER Oral (50 mg) 1 tablet, am Nitroglycerin Translingual Spiriva HandiHaler Inhalation, daily-, is taking twice a day most days Warfarin Sodium Oral 2.5 mg, daily The source(s) of the original Home Medication information: patient's family member The following Medications were given to the patient in the Emergency Department: IV NS IV Fluids bolus 0, then 500 mL/hr, administered: 03/30/2017 12:49:00 PM Metoprolol [IVP] IVP 2.5 mg, administered: 03/30/2017 1:18:00 PM IV NS IV Fluids bolus 0, then 500 mL/hr, administered: 03/30/2017 1:39:00 PM Metoprolol [IVP] IVP 2.5 mg, administered: 03/30/2017 1:40:00 PM Metoprolol [IVP] IVP 2.5 mg, administered: 03/30/2017 2:13:00 PM Metoprolol [IVP] IVP 2.5 mg, administered: 03/30/2017 3:01:00 PM Metoprolol [PO] PO 100 mg, administered: 03/30/2017 5:02:00 PM The following Medications were prescribed to the patient: None.
--- NOTE | 2017-03-31 00:42 | ED MAR SUMMARY ---
..... Medication Administration Record [facility] [address] [place] [address] Patient: TERI RAMIREZ Visit ID: [id number] 82y, F Weight: 43.5 kg Height/Length: 64 in BMI: 16.5 ALLERGIES: Cortisone, Penicillin Start 12:49 03/30/2017 Jeni Rosenberg R.N., Stop 13:34 03/30/2017 Jeni Rosenberg R.N. Medication Administered: IV NS (SALINE), Dose: IV Fluids over 1 hour(s), Rate: 500 mL/hr, Dispensed: 500 mL bag, Site: #1 right. Medication Ordered: IV NS : initial bolus 500 mL (1000 mL/hr), then none - for X1 (NOW). Given 13:18 03/30/2017 Jeni Rosenberg R.N. Medication Administered: METOPROLOL [IVP] (METOPROLOL TARTRATE), Dose: 2.5 mg IVP over 5 minute(s), Site: #1 right. Medication Ordered: Metoprolol IV 2.5 mg (HIGH ALERT MEDICATION, NOW). Start 13:39 03/30/2017 Jeni Rosenberg R.N., Stop 15:01 03/30/2017 Jeni Rosenberg R.N. Medication Administered: IV NS (SALINE), Dose: IV Fluids over 1 hour(s), Rate: 500 mL/hr, Dispensed: 500 mL bag, Site: #1 right. Medication Ordered: IV NS : initial bolus 500 mL (1000 mL/hr), then none - for X1 (NOW). Given 13:40 03/30/2017 Jeni Rosenberg R.N. Medication Administered: METOPROLOL [IVP] (METOPROLOL TARTRATE), Dose: 2.5 mg IVP over 5 minute(s), Site: #1 right. Medication Ordered: Metoprolol IV 2.5 mg (HIGH ALERT MEDICATION, NOW). Given 14:13 03/30/2017 Jeni Rosenberg R.N. Medication Administered: METOPROLOL [IVP] (METOPROLOL TARTRATE), Dose: 2.5 mg IVP over 5 minute(s), Site: #1 right. Medication Ordered: Metoprolol IV 2.5 mg (HIGH ALERT MEDICATION, NOW). Given 15:01 03/30/2017 Jeni Rosenberg RMarianaN. Medication Administered: METOPROLOL [IVP] (METOPROLOL TARTRATE), Dose: 2.5 mg IVP over 5 minute(s), Site: #1 right. Medication Ordered: Metoprolol IV 2.5 mg (HIGH ALERT MEDICATION, NOW). Given 17:02 03/30/2017 Hali Carpenter RYong. Medication Administered: METOPROLOL [PO], Dose: 100 mg PO. Medication Ordered: Metoprolol PO 100 mg (HIGH ALERT MEDICATION, NOW).
--- NOTE | 2017-03-31 00:42 | ED MAR SUMMARY ---
..... Medication Administration Record [facility] [address] [place] [address] Patient: TERI RAMIREZ Visit ID: [id number] 82y, F Weight: 43.5 kg Height/Length: 64 in BMI: 16.5 ALLERGIES: Cortisone, Penicillin Start 12:49 03/30/2017 Jeni Rosenberg R.N., Stop 13:34 03/30/2017 Jeni Rosenberg R.N. Medication Administered: IV NS (SALINE), Dose: IV Fluids over 1 hour(s), Rate: 500 mL/hr, Dispensed: 500 mL bag, Site: #1 right. Medication Ordered: IV NS : initial bolus 500 mL (1000 mL/hr), then none - for X1 (NOW). Given 13:18 03/30/2017 Jeni Rosenberg R.N. Medication Administered: METOPROLOL [IVP] (METOPROLOL TARTRATE), Dose: 2.5 mg IVP over 5 minute(s), Site: #1 right. Medication Ordered: Metoprolol IV 2.5 mg (HIGH ALERT MEDICATION, NOW). Start 13:39 03/30/2017 Jeni Rosenberg R.N., Stop 15:01 03/30/2017 Jeni Rosenberg R.N. Medication Administered: IV NS (SALINE), Dose: IV Fluids over 1 hour(s), Rate: 500 mL/hr, Dispensed: 500 mL bag, Site: #1 right. Medication Ordered: IV NS : initial bolus 500 mL (1000 mL/hr), then none - for X1 (NOW). Given 13:40 03/30/2017 Jeni Rosenberg R.N. Medication Administered: METOPROLOL [IVP] (METOPROLOL TARTRATE), Dose: 2.5 mg IVP over 5 minute(s), Site: #1 right. Medication Ordered: Metoprolol IV 2.5 mg (HIGH ALERT MEDICATION, NOW). Given 14:13 03/30/2017 Jeni Rosenberg R.N. Medication Administered: METOPROLOL [IVP] (METOPROLOL TARTRATE), Dose: 2.5 mg IVP over 5 minute(s), Site: #1 right. Medication Ordered: Metoprolol IV 2.5 mg (HIGH ALERT MEDICATION, NOW). Given 15:01 03/30/2017 Jeni Rosenberg RMarianaN. Medication Administered: METOPROLOL [IVP] (METOPROLOL TARTRATE), Dose: 2.5 mg IVP over 5 minute(s), Site: #1 right. Medication Ordered: Metoprolol IV 2.5 mg (HIGH ALERT MEDICATION, NOW). Given 17:02 03/30/2017 Hali Carpenter RYong. Medication Administered: METOPROLOL [PO], Dose: 100 mg PO. Medication Ordered: Metoprolol PO 100 mg (HIGH ALERT MEDICATION, NOW).
--- NOTE | 2017-03-31 00:42 | ED DISCHARGE INSTRUCTIONS ---
Patient: TERI RAMIREZ General Instructions [facility] VisitID: [id number] [address] [place] [address] 82y, F Registration Date/Time: 03/30/2017 a fib with rvr congestive heart failure lactic acidosis hypotension abdominal pain acute right lower quadrant. (Electronically signed by Todd Moctezuma Dr. 03/31/2017 0:41)
--- NOTE | 2017-03-31 00:42 | ED DISCHARGE INSTRUCTIONS ---
Patient: TERI RAMIREZ General Instructions [facility] VisitID: [id number] [address] [place] [address] 82y, F Registration Date/Time: 03/30/2017 a fib with rvr congestive heart failure lactic acidosis hypotension abdominal pain acute right lower quadrant. (Electronically signed by Todd Moctezuma Dr. 03/31/2017 0:41)
--- NOTE | 2017-03-31 00:42 | ED MED RECONCILIATION SUMMARY ---
Patient: TERI RAMIREZ Medication Reconciliation Report [facility] VisitID: [id number] [address] [place] [address] 82y, F Registration Date/Time: 03/30/2017 Weight: 43.5 kg Height/Length: 64 in. BMI: 16.5 ALLERGIES: Cortisone, Penicillin The patient's Home Medications are listed below: THE FOLLOWING MEDICATIONS NEED TO BE RECONCILED: Furosemide Oral 20 mg, daily MetFORMIN HCl Oral (500 mg) 1/2 tablet, daily Metoprolol Succinate ER Oral (50 mg) 1 tablet, am Nitroglycerin Translingual Spiriva HandiHaler Inhalation, daily-, is taking twice a day most days Warfarin Sodium Oral 2.5 mg, daily The source(s) of the original Home Medication information: patient's family member The following Medications were given to the patient in the Emergency Department: IV NS IV Fluids bolus 0, then 500 mL/hr, administered: 03/30/2017 12:49:00 PM Metoprolol [IVP] IVP 2.5 mg, administered: 03/30/2017 1:18:00 PM IV NS IV Fluids bolus 0, then 500 mL/hr, administered: 03/30/2017 1:39:00 PM Metoprolol [IVP] IVP 2.5 mg, administered: 03/30/2017 1:40:00 PM Metoprolol [IVP] IVP 2.5 mg, administered: 03/30/2017 2:13:00 PM Metoprolol [IVP] IVP 2.5 mg, administered: 03/30/2017 3:01:00 PM Metoprolol [PO] PO 100 mg, administered: 03/30/2017 5:02:00 PM The following Medications were prescribed to the patient: None.
--- NOTE | 2017-03-31 06:36 | Progress Note ---
Subjective General ADVANCED CARE PLAN History of Present Illness The patient is a 82-year-old single white female with a significant past medical history of coronary artery disease status post myocardial infarction, peptic ulcer disease, atrial fibrillation, chronic anticoagulation, COPD, adult-onset diabetes mellitus, cerebrovascular disease status post CVA, who presented to [facility] emergency room on the day of admission secondary to complaints of generalized weakness, shortness of breath, and rapid heart rate. [facility] ER evaluation was consistent with atrial fibrillation with rapid ventricular response heart rate 1 40/m, CHF, exacerbation of COPD, and anemia. Secondary to the above, the patient was admitted by Misael Galan M.D. for further evaluation and treatment. For other history present illness, past medical history, family history, social history, review of systems, and admission physical examination please see the patient's history and physical examination and ER visit note in the patient's medical record. A discussion was undertaken with the patient and her DPOAH regarding previous advance care arrangements/decisions. The following advanced directives were noted by the patient/DPOAH and discussed with me at the time of admission. ADVANCED DIRECTIVES: 1. Living well: Yes 2. POLST: Yes 3. Code Status: NO CODE 4. Durable Power [employer] [facility] care: Yes 5. Donor card: No The patient has expressed interest in not pursuing any form of resuscitation at this time. She has opted not to pursue intubation/mechanical ventilation, CPR, electrical cardioversion, or life-sustaining efforts involving drugs at the time of cardiopulmonary arrest. The patient's wishes were documented in the chart and orders regarding the patient's wishes entered into the [employer] CPOE system. The "Advance Care Plan Document" was not distributed to patient to discuss with her family/DPOAH. Less than 30 minutes was spent in performing the above tasks and documentation of the patient's advanced care plan.
--- NOTE | 2017-03-31 06:36 | Progress Note ---
Subjective General ADVANCED CARE PLAN History of Present Illness The patient is a 82-year-old single white female with a significant past medical history of coronary artery disease status post myocardial infarction, peptic ulcer disease, atrial fibrillation, chronic anticoagulation, COPD, adult-onset diabetes mellitus, cerebrovascular disease status post CVA, who presented to [facility] emergency room on the day of admission secondary to complaints of generalized weakness, shortness of breath, and rapid heart rate. [facility] ER evaluation was consistent with atrial fibrillation with rapid ventricular response heart rate 1 40/m, CHF, exacerbation of COPD, and anemia. Secondary to the above, the patient was admitted by Misael Galan M.D. for further evaluation and treatment. For other history present illness, past medical history, family history, social history, review of systems, and admission physical examination please see the patient's history and physical examination and ER visit note in the patient's medical record. A discussion was undertaken with the patient and her DPOAH regarding previous advance care arrangements/decisions. The following advanced directives were noted by the patient/DPOAH and discussed with me at the time of admission. ADVANCED DIRECTIVES: 1. Living well: Yes 2. POLST: Yes 3. Code Status: NO CODE 4. Durable Power [place] [facility] care: Yes 5. Donor card: No The patient has expressed interest in not pursuing any form of resuscitation at this time. She has opted not to pursue intubation/mechanical ventilation, CPR, electrical cardioversion, or life-sustaining efforts involving drugs at the time of cardiopulmonary arrest. The patient's wishes were documented in the chart and orders regarding the patient's wishes entered into the [employer] CPOE system. The "Advance Care Plan Document" was not distributed to patient to discuss with her family/DPOAH. Less than 30 minutes was spent in performing the above tasks and documentation of the patient's advanced care plan.
--- NOTE | 2017-03-31 07:50 | Progress Note ---
Subjective General doing much better now, no palpitation, no dyspnea, no chest pain, no neuase or vomiting feeling stronger now wants to go home Physical Exam Vital Signs / I&Os Vital Signs Date Time Temp Pulse Resp B/P Pulse O2 O2 Flow FiO2 Ox Delivery Rate 03/31 0724 1.0 03/31 0600 100 21 111/69 95 Nasal 1.0 Cannula 03/31 0512 97.9 103 22 111/69 94 Nasal 1.0 Cannula 03/31 0425 111 03/31 0400 115 21 107/62 98 Nasal 1.0 Cannula 03/31 0300 115 21 92 Nasal 1.0 Cannula 03/31 0200 113 21 105/69 93 Nasal 1.0 Cannula 03/31 0100 98.1 111 24 103/75 93 Room Air 03/31 0028 122 03/31 0000 114 21 104/75 92 Nasal 1.0 Cannula 03/30 2300 114 28 104/69 95 Nasal 1.0 Cannula 03/30 2236 129 03/30 2203 129 27 93/65 90 03/30 2109 98.6 116 24 92/63 92 03/30 2100 Nasal 1.0 Cannula I&O 03/31 0000 03/30 1600 03/30 0800 Intake Total Output Total Balance General Appearance No acute distress Cardiovascular Normal S1 and S2, No murmurs, gallops, rubs (irrgular pulse) Abdomen Normal bowel sounds, Soft, No tenderness Extremities No edema LAB Results Laboratory Tests 03/31 03/31 03/30 03/30 0412 0412 1920 1920 Chemistry Plasma Sodium (136 - 145 mmol/L) 143 Plasma Potassium (3.5 - 5.1 mmol/L) 5.0 Plasma Chloride (98 - 107 mmol/L) 106 CO2 (Enzymatic) (21 - 32 mmol/L) 21 BUN (7 - 18 mg/dL) 26 Creatinine (0.6 - 1.3 mg/dL) 1.2 Est GFR ( Amer) (mL/min) 55.40 Est GFR (Non-Af Amer) (mL/min) 45.71 Glucose (70 - 110 mg/dL) 95 Hemoglobin A1c % (4.5 - 6.2 %) 6.3 Lactic Acid (0.4 - 2.0 mmol/L) 2.9 Plasma Calcium (8.5 - 10.1 mg/dL) 7.9 B-Natriuretic Peptide (5 - 100 pg/ml) 1540 Coagulation INR (0.8 - 1.2) 2.8 Hematology WBC (4.5 - 11.5 K/uL) 8.0 RBC (4.00 - 5.20 M/uL) 4.53 Hgb (12.0 - 16.0 gm/dL) 10.8 Hct (36.0 - 46.0 %) 36.0 MCV (80 - 100 fL) 79 MCH (26 - 34 pg) 24 RDW (11.6 - 14.8 %) 23.6 Gran % (53 - 90) 73.7 Lymph % (Auto) (25 - 40 %) 23.4 [place] % (Auto) (3 - 14 %) 2.9 Plt Count, EDTA (150 - 400 K/uL) 195 PUBS MCHC (31 - 37 g/dL) 30 03/30 03/30 03/30 1735 1245 1244 Chemistry Lactic Acid (0.4 - 2.0 mmol/L) 2.3 B-Natriuretic Peptide (5 - 100 pg/ml) 1230 Toxicology Urine Opiates Screen (NEGATIVE) NEGATIVE Urine Methadone Screen (NEGATIVE) NEGATIVE Ur Barbiturates Screen (NEGATIVE) NEGATIVE U Amphetamin/Meth Scrn (NEGATIVE) NEGATIVE MDMA (Ecstasy) Screen (NEGATIVE) NEGATIVE U Benzodiazepines Scrn (NEGATIVE) NEGATIVE Urine Cocaine Screen (NEGATIVE) NEGATIVE U Cannabinoids Screen (NEGATIVE) NEGATIVE Urines Urine Color YELLOW Urine Appearance CLEAR Urine pH (5.0 - 8.0) 5.0 Ur Specific [place] (1.010 - 1.030) <= 1.005 Urine Protein (NEGATIVE) NEGATIVE Urine Ketones (NEGATIVE) NEGATIVE Urine Blood (NEGATIVE) NEGATIVE Urine Nitrite (NEGATIVE) NEGATIVE Urine Bilirubin (NEGATIVE) NEGATIVE Urine Urobilinogen (0.2 - 1.0 EU/dL) 0.2 Ur Leukocyte Esterase (NEGATIVE) NEGATIVE Urine RBC (0 - 1 rbc/hpf) NONE SEEN Urine WBC (0 - 1 wbc/hpf) 0-1 Ur Epithelial Cells (0 - 5 EPI/hpf) 0-1 Urine Bacteria (NONE SEEN) TRACE (<1+) Urine Glucose (NEGATIVE) NEGATIVE Urine Comment CULT NOT INDICATED 03/30 03/30 1244 1215 Chemistry Plasma Sodium (136 - 145 mmol/L) 145 Plasma Potassium (3.5 - 5.1 mmol/L) 4.8 Plasma Chloride (98 - 107 mmol/L) 108 CO2 (Enzymatic) (21 - 32 mmol/L) 24 BUN (7 - 18 mg/dL) 23 Creatinine (0.6 - 1.3 mg/dL) 1.2 Est GFR ( Amer) (mL/min) 55.40 Est GFR (Non-Af Amer) (mL/min) 45.71 Glucose (70 - 110 mg/dL) 119 Plasma Calcium (8.5 - 10.1 mg/dL) 7.9 Iron (35 - 150 ug/dL) 28 TIBC (260 - 445 ug/dL) 361 Iron Saturation (15 - 50 %) 8 Total Bilirubin (0.0 - 1.0 mg/dL) 0.6 AST (15 - 37 U/L) 63 ALT (12 - 78 U/L) 33 Alkaline Phosphatase (46 - 116 U/L) 101 Troponin (0.00 - 1.5 ng/mL) <0.05 Total Protein (6.4 - 8.2 g/dL) 5.7 Albumin (3.3 - 5.0 g/dL) 2.8 Vitamin B12 (211 - 946 pg/mL) 463 Folate (>3.0 ng/mL) 41.4 TSH 3rd Generation (0.30 - 3.74 uIU/mL) 1.566 Coagulation INR (0.8 - 1.2) 2.5 Hematology WBC (4.5 - 11.5 K/uL) 7.1 RBC (4.00 - 5.20 M/uL) 4.26 Hgb (12.0 - 16.0 gm/dL) 10.4 Hct (36.0 - 46.0 %) 33.7 MCV (80 - 100 fL) 79 MCH (26 - 34 pg) 25 RDW (11.6 - 14.8 %) 24.3 Neut % (Auto) (50 - 75 %) 59.8 Lymph % (Auto) (25 - 40 %) 29.0 [place] % (Auto) (3 - 14 %) 9.9 Eos % (Auto) (0 - 4 %) 1.2 Baso % (Auto) (0 - 2 %) 0.1 Plt Count, EDTA (150 - 400 K/uL) 217 RBC Morphology (6265 A) PLTS ADQ PUBS MCHC (31 - 37 g/dL) 31 Assessment and Plan Problem List 1. Atrial fibrillation Plan rate controlled now will start on Digoxin oral, restart Toprol once BP stablized 2. Congestive heart failure Plan stable and controlled 3. COPD (chronic obstructive pulmonary disease) Status Chronic Onset Date Unknown Plan stable and controlled 4. Anemia Status Acute Onset Date Unknown Plan iron profile is pending
--- NOTE | 2017-03-31 12:45 | DIAGNOSTIC IMAGING REPORT ---
REFERRING PHYSICIAN/PROVIDER: Misael Galan MD CONSULTING DIATHERMY EQUIPMENT REPAIRER: Francisco Ag MD INDICATION: atrial fibrillation, CHF Procedure: A two-dimensional transthoracic echocardiogram with color flow and Doppler was performed. The study quality was technically limited. The patient was in atrial fibrillation with heart rates between 90-110 bpm during the exam. Left Ventricle: The left ventricle is normal in size. There is mild concentric left ventricular hypertrophy. Left ventricular systolic function is low normal. The ejection fraction is estimated to be 50-55%. There are no obvious focal wall motion abnormalities noted but poor endocardial definition reduces the sensitivity for the detection of such. Diastolic function could not be accurately assessed due to atrial fibrillation. Right Ventricle: The right ventricle is not well visualized. Atria: The left atrium is severely dilated. The right atrium is moderate to severely dilated. The interatrial septum is grossly intact. Mitral Valve: The mitral valve leaflets appear moderately thickened, but open well. There is moderate mitral annular calcification. There is moderate mitral regurgitation. Aortic Valve: The aortic valve is trileaflet. The aortic valve opens well. There is no aortic regurgitation. Tricuspid Valve: The tricuspid valve leaflets are thin and pliable. There is a trace or physiologic amount of tricuspid regurgitation. Pulmonary artery pressures cannot be estimated because of the lack of a measurable TR jet velocity. Pulmonic Valve: The pulmonic valve is normal in structure and function. There is trace pulmonic regurgitation. There is no other significant valvular heart disease. Great Vessels: The aortic root is normal size. The ascending aorta is mildly enlarged. It measures at 3.5 cm. IMPRESSION: Limited study due to patient not able to follow instructions. There is mild concentric left ventricular hypertrophy. Left ventricular systolic function is low normal. The ejection fraction is estimated to be 50-55%. There are no obvious focal wall motion abnormalities noted but poor endocardial definition reduces the sensitivity for the detection of such. Diastolic function could not be accurately assessed due to atrial fibrillation. The right ventricle is not well visualized. Pulmonary artery pressures cannot be estimated because of the lack of a measurable TR jet velocity. The left atrium is severely dilated. The right atrium is moderate to severely dilated. The interatrial septum is grossly intact. There is moderate mitral regurgitation. There is no other significant valvular heart disease. The ascending aorta is mildly enlarged.
[2017-04-01] VITALS (14 sets, daily range): BP systolic 97–139; BP diastolic 54–77
--- NOTE | 2017-04-01 07:39 | Progress Note ---
Subjective General Note Date: 04/01/2017 Admission Date: date March 30, 2017 Hospital Day: Hospital day 3 PCP: Kayden Guevara MD Status: Fair Advanced Directive: No Code Room: [address] [place] [address] The patient is a 82-year-old single white female with a significant past medical history of coronary artery disease status post myocardial infarction, peptic ulcer disease, atrial fibrillation, chronic anticoagulation, COPD, adult-onset diabetes mellitus, cerebrovascular disease status post CVA, who presented to [facility] emergency room on the day of admission secondary to complaints of generalized weakness, shortness of breath, and rapid heart rate. [facility] ER evaluation was consistent with atrial fibrillation with rapid ventricular response heart rate 1 40/m, CHF, exacerbation of COPD, and anemia. Secondary to the above, the patient was admitted by Misael Galan M.D. for further evaluation and treatment. Subjective She was seen at bedside today. Patient is eating her breakfast drinking coffee. Talking without distress. Patient states that she is ready to go home. Patient has had elevated heart rate overnight. Patient requests Discharge Physical Exam Vital Signs / I&Os Vital Signs Date Time Temp Pulse Resp B/P Pulse O2 O2 Flow FiO2 Ox Delivery Rate 05/06 0711 98.1 116 19 109/71 93 Room Air 05/06 0600 98.4 116 16 107/69 93 Room Air 05/06 0500 115 16 97/58 90 Room Air 05/06 0400 94 16 139/60 92 Room Air 05/06 0310 104 16 107/60 94 Room Air 05/06 0203 98.2 115 18 118/62 93 Room Air 05/06 0111 113 19 113/58 89 Room Air 05/06 0000 87 19 103/70 96 Room Air 05/05 2309 102 26 106/68 91 Room Air 05/05 2227 Room Air 05/05 2212 97 19 97/47 89 Room Air 05/05 2110 88 17 103/60 91 Room Air 05/05 2000 96 21 102/67 92 Room Air 05/05 1900 98.4 84 15 98/50 95 Room Air 05/05 1800 98 22 104/50 91 Room Air 05/05 1722 98.1 106 20 109/74 19 05/05 1600 97.7 101 20 94/60 19 05/05 1508 97.9 84 20 107/69 92 05/05 1415 97.9 05/05 1410 97.7 05/05 1401 87 20 105/56 92 Room Air 03/31 1315 79 20 102/58 94 Room Air 03/31 1211 103 19 121/62 91 Nasal 1.0 Cannula 03/31 1106 97.5 96 18 103/56 95 Nasal 1.0 Cannula 03/31 1051 98.2 03/31 1013 106 21 106/61 92 Nasal 1.0 Cannula 03/31 0857 102 03/31 0800 Nasal 1.0 Cannula 03/31 0750 98.2 111 23 107/74 95 Nasal 1.0 Cannula I&O 03/31 0800 03/31 1600 05 0000 Intake Total 846 1534 475 Output Total 500 299 620 Balance 346 1235 -145 General Appearance Cooperative, No acute distress Lungs Clear to auscultation, Normal air movement Cardiovascular No murmurs, gallops, rubs, tachycardia Abdomen Soft, No tenderness Extremities No edema Skin No Breakdown LAB Results Laboratory Tests 04/01 04/01 0425 1620 Chemistry Plasma Sodium (136 - 145 mmol/L) 142 Plasma Potassium (3.5 - 5.1 mmol/L) 4.4 Plasma Chloride (98 - 107 mmol/L) 108 CO2 (Enzymatic) (21 - 32 mmol/L) 22 BUN (7 - 18 mg/dL) 16 Creatinine (0.6 - 1.3 mg/dL) 1.1 Est GFR ( Amer) (mL/min) >60 Est GFR (Non-Af Amer) (mL/min) 50.54 Glucose (70 - 110 mg/dL) 99 Plasma Calcium (8.5 - 10.1 mg/dL) 7.5 Coagulation Protein C Antigen Pending Hematology WBC (4.5 - 11.5 K/uL) 10.5 RBC (4.00 - 5.20 M/uL) 4.65 Hgb (12.0 - 16.0 gm/dL) 11.5 Hct (36.0 - 46.0 %) 36.4 MCV (80 - 100 fL) 78 MCH (26 - 34 pg) 25 RDW (11.6 - 14.8 %) 23.5 Neut % (Auto) (50 - 75 %) 81.6 Lymph % (Auto) (25 - 40 %) 10.6 [place] % (Auto) (3 - 14 %) 6.1 Eos % (Auto) (0 - 4 %) 1.7 Baso % (Auto) (0 - 2 %) 0 Plt Count, EDTA (150 - 400 K/uL) 263 RBC Morphology (59743 A) 2+ MACROCYTOSIS PUBS MCHC (31 - 37 g/dL) 32 Toxicology Digoxin (0.9 - 2.0 ng/mL) 2.0 Assessment and Plan Problem List 1. Congestive heart failure Plan Echocardiogram done. Heart failure with a preserved ejection fraction Rate control caution. Return to home medication including the beta erick Digoxien Now at a level of 2.0. We'll continue with 125 g daily. 2. Atrial fibrillation Plan Discussed rate control. Patient with tachycardia A. fib with rapid ventricular response. This is on the setting of preserved ejection fraction Heart failure 3. Weakness generalized Plan Generalized weakness secondary to heart failure Suggest patient have outpatient therapy to improve on cardiac conditioning. 4. Dementia Plan Level of dementia. Patient conversed and is pleasant. Suggesting neurology outpatient care. 5. COPD (chronic obstructive pulmonary disease) Status Chronic Onset Date Unknown Plan Stabilized; monitor 6. Nicotine dependence Status Chronic Onset Date Unknown Plan Nicotine replacement smoking cessation Current status: Fair, stable Anticipated discharge date: Anticipated discharge in 1-2 days Anticipated discharge placement: Home versus [facility] facility Patient care time: Time spent in chart review, patient interview, physical exam, CPOE, and care documentation: 35 minutes Visit to patient today: 2 Complexity of care: High DVT prophylaxis: Coumadin therapeutic dosage GI prophylaxis: Protonix 40 mg by mouth daily Initial patient evaluation: Emergency department Advance care plan: CODE STATUS-No Code E&M Codes Rounding: Inpt-High/01331
--- NOTE | 2017-04-01 07:39 | Progress Note ---
Subjective General Note Date: 04/01/2017 Admission Date: date March 30, 2017 Hospital Day: Hospital day 3 PCP: Kayden Guevara MD Status: Fair Advanced Directive: No Code Room: [address] [place] [address] The patient is a 82-year-old single white female with a significant past medical history of coronary artery disease status post myocardial infarction, peptic ulcer disease, atrial fibrillation, chronic anticoagulation, COPD, adult-onset diabetes mellitus, cerebrovascular disease status post CVA, who presented to [facility] emergency room on the day of admission secondary to complaints of generalized weakness, shortness of breath, and rapid heart rate. [facility] ER evaluation was consistent with atrial fibrillation with rapid ventricular response heart rate 1 40/m, CHF, exacerbation of COPD, and anemia. Secondary to the above, the patient was admitted by Misael Galan M.D. for further evaluation and treatment. Subjective She was seen at bedside today. Patient is eating her breakfast drinking coffee. Talking without distress. Patient states that she is ready to go home. Patient has had elevated heart rate overnight. Patient requests Discharge Physical Exam Vital Signs / I&Os Vital Signs Date Time Temp Pulse Resp B/P Pulse O2 O2 Flow FiO2 Ox Delivery Rate 05/06 0711 98.1 116 19 109/71 93 Room Air 05/06 0600 98.4 116 16 107/69 93 Room Air 05/06 0500 115 16 97/58 90 Room Air 05/06 0400 94 16 139/60 92 Room Air 05/06 0310 104 16 107/60 94 Room Air 05/06 0203 98.2 115 18 118/62 93 Room Air 05/06 0111 113 19 113/58 89 Room Air 05/06 0000 87 19 103/70 96 Room Air 05/05 2309 102 26 106/68 91 Room Air 05/05 2227 Room Air 05/05 2212 97 19 97/47 89 Room Air 05/05 2110 88 17 103/60 91 Room Air 05/05 2000 96 21 102/67 92 Room Air 05/05 1900 98.4 84 15 98/50 95 Room Air 05/05 1800 98 22 104/50 91 Room Air 05/05 1722 98.1 106 20 109/74 19 05/05 1600 97.7 101 20 94/60 19 05/05 1508 97.9 84 20 107/69 92 05/05 1415 97.9 05/05 1410 97.7 05/05 1401 87 20 105/56 92 Room Air 03/31 1315 79 20 102/58 94 Room Air 03/31 1211 103 19 121/62 91 Nasal 1.0 Cannula 03/31 1106 97.5 96 18 103/56 95 Nasal 1.0 Cannula 03/31 1051 98.2 03/31 1013 106 21 106/61 92 Nasal 1.0 Cannula 03/31 0857 102 03/31 0800 Nasal 1.0 Cannula 03/31 0750 98.2 111 23 107/74 95 Nasal 1.0 Cannula I&O 03/31 0800 03/31 1600 05 0000 Intake Total 846 1534 475 Output Total 500 299 620 Balance 346 1235 -145 General Appearance Cooperative, No acute distress Lungs Clear to auscultation, Normal air movement Cardiovascular No murmurs, gallops, rubs, tachycardia Abdomen Soft, No tenderness Extremities No edema Skin No Breakdown LAB Results Laboratory Tests 04/01 04/01 0425 1620 Chemistry Plasma Sodium (136 - 145 mmol/L) 142 Plasma Potassium (3.5 - 5.1 mmol/L) 4.4 Plasma Chloride (98 - 107 mmol/L) 108 CO2 (Enzymatic) (21 - 32 mmol/L) 22 BUN (7 - 18 mg/dL) 16 Creatinine (0.6 - 1.3 mg/dL) 1.1 Est GFR ( Amer) (mL/min) >60 Est GFR (Non-Af Amer) (mL/min) 50.54 Glucose (70 - 110 mg/dL) 99 Plasma Calcium (8.5 - 10.1 mg/dL) 7.5 Coagulation Protein C Antigen Pending Hematology WBC (4.5 - 11.5 K/uL) 10.5 RBC (4.00 - 5.20 M/uL) 4.65 Hgb (12.0 - 16.0 gm/dL) 11.5 Hct (36.0 - 46.0 %) 36.4 MCV (80 - 100 fL) 78 MCH (26 - 34 pg) 25 RDW (11.6 - 14.8 %) 23.5 Neut % (Auto) (50 - 75 %) 81.6 Lymph % (Auto) (25 - 40 %) 10.6 [place] % (Auto) (3 - 14 %) 6.1 Eos % (Auto) (0 - 4 %) 1.7 Baso % (Auto) (0 - 2 %) 0 Plt Count, EDTA (150 - 400 K/uL) 263 RBC Morphology (51814 A) 2+ MACROCYTOSIS PUBS MCHC (31 - 37 g/dL) 32 Toxicology Digoxin (0.9 - 2.0 ng/mL) 2.0 Assessment and Plan Problem List 1. Congestive heart failure Plan Echocardiogram done. Heart failure with a preserved ejection fraction Rate control caution. Return to home medication including the beta erick Digoxien Now at a level of 2.0. We'll continue with 125 g daily. 2. Atrial fibrillation Plan Discussed rate control. Patient with tachycardia A. fib with rapid ventricular response. This is on the setting of preserved ejection fraction Heart failure 3. Weakness generalized Plan Generalized weakness secondary to heart failure Suggest patient have outpatient therapy to improve on cardiac conditioning. 4. Dementia Plan Level of dementia. Patient conversed and is pleasant. Suggesting neurology outpatient care. 5. COPD (chronic obstructive pulmonary disease) Status Chronic Onset Date Unknown Plan Stabilized; monitor 6. Nicotine dependence Status Chronic Onset Date Unknown Plan Nicotine replacement smoking cessation Current status: Fair, stable Anticipated discharge date: Anticipated discharge in 1-2 days Anticipated discharge placement: Home versus half-way facility Patient care time: Time spent in chart review, patient interview, physical exam, CPOE, and care documentation: 35 minutes Visit to patient today: 2 Complexity of care: High DVT prophylaxis: Coumadin therapeutic dosage GI prophylaxis: Protonix 40 mg by mouth daily Initial patient evaluation: Emergency department Advance care plan: CODE STATUS-No Code E&M Codes Rounding: Inpt-High/[id number]
[2017-04-02 02:53] VITALS: BP 110/62
--- NOTE | 2017-04-02 07:21 | Progress Note ---
Subjective General Note Date: 04/02/2017 Admission Date: date March 30, 2017 Hospital Day: Hospital day 4 PCP: Kayden Guevara MD Status: Fair Advanced Directive: No Code Room: [address] [place] [address] The patient is a 82-year-old single white female with a significant past medical history of coronary artery disease status post myocardial infarction, peptic ulcer disease, atrial fibrillation, chronic anticoagulation, COPD, adult-onset diabetes mellitus, cerebrovascular disease status post CVA, who presented to [facility] emergency room on the day of admission secondary to complaints of generalized weakness, shortness of breath, and rapid heart rate. [facility] ER evaluation was consistent with atrial fibrillation with rapid ventricular response heart rate 1 40/m, CHF, exacerbation of COPD, and anemia. Secondary to the above, the patient was admitted by Misael Galan M.D. for further evaluation and treatment. Subjective Patient states that she is feeling relatively well. Patient reports that she is feeling tired today. Patient was able to sit up in bed, any. Patient has generalized weakness. Patient typically is sedentary. Patient lives on her own takes care of her own needs. She does have a daughter and family members see her on a daily basis. Patient has no other complaints today. Patient states she is ready to go home Patient requests Go home Physical Exam Vital Signs / I&Os Vital Signs Date Time Temp Pulse Resp B/P Pulse O2 O2 Flow FiO2 Ox Delivery Rate 04/02 0253 97.5 93 16 110/62 97 Room Air 0.0 04/02 0235 94 15 / 2235 97.3 103 16 107/62 96 1.0 / 2000 Room Air / 1830 97.5 101 18 110/61 95 Room Air 05/ 1400 98.1 93 18 102/55 97 Room Air 05/ 1323 113 05/06 1113 119 18 107/77 95 Room Air 05/ 1015 98.1 105 19 103/54 95 Room Air 05/ 0914 115 18 106/63 94 Room Air I&O / 0800 05/06 1600 04/02 0000 Intake Total 1299 822 640 Output Total 1010 225 650 Balance 289 597 -10 General Appearance Cooperative, No acute distress HEENT EOMI Lungs air movement is relatively normal Neck No JVD Cardiovascular Normal S1 and S2 Abdomen Soft, No tenderness, No guarding Extremities No cyanosis, No clubbing, No edema Psych/Mental Status Mood normal LAB Results Laboratory Tests 04/01 04/02 1620 0526 Chemistry Plasma Sodium (136 - 145 mmol/L) 143 Plasma Potassium (3.5 - 5.1 mmol/L) 4.5 Plasma Chloride (98 - 107 mmol/L) 111 CO2 (Enzymatic) (21 - 32 mmol/L) 23 BUN (7 - 18 mg/dL) 14 Creatinine (0.6 - 1.3 mg/dL) 0.9 Est GFR ( Amer) (mL/min) >60 Est GFR (Non-Af Amer) (mL/min) >60 Glucose (70 - 110 mg/dL) 95 Plasma Calcium (8.5 - 10.1 mg/dL) 7.4 Total Bilirubin (0.0 - 1.0 mg/dL) 0.5 AST (15 - 37 U/L) 29 ALT (12 - 78 U/L) 26 Alkaline Phosphatase (46 - 116 U/L) 77 Total Protein (6.4 - 8.2 g/dL) 5.2 Albumin (3.3 - 5.0 g/dL) 2.2 Coagulation INR (0.8 - 1.2) 2.9 Hematology WBC (4.5 - 11.5 K/uL) 8.0 RBC (4.00 - 5.20 M/uL) 4.13 Hgb (12.0 - 16.0 gm/dL) 10.2 Hct (36.0 - 46.0 %) 32.8 MCV (80 - 100 fL) 79 MCH (26 - 34 pg) 25 RDW (11.6 - 14.8 %) 23.9 Plt Count, EDTA (150 - 400 K/uL) 267 RBC Morphology (40167 A) 1+ POLYCHROMIA PUBS MCHC (31 - 37 g/dL) 31 Toxicology Digoxin (0.9 - 2.0 ng/mL) 2.0 Assessment and Plan Problem List 1. Atrial fibrillation with rapid ventricular response Plan A. fib with rapid ventricular response. Currently rate control and measures. Patient was given digoxin on her second day of hospitalization. Echocardiogram showed an EF of 50-55%. Diastolic function was not appreciated on echocardiogram. Probable normal ejection fraction. Cardiac failure. Patient with history of COPD. May have some obstructive signs at night. Patient is follow-up with primary care provider on discharge. May consider a cardiac referral plus pulmonary referral. Patient will return home once her strength improves through a SNIF. 2. Renal insufficiency Plan There is mild degree of renal insufficiency. Appropriate fluid balance in this case is challenging. Given the level of renal insufficiency and heart failure. Patient should be fluid restricted to 2.5 L per day. Salt restricted diet 3. CHF exacerbation Plan Exacerbation of chronic heart failure. Preserved Ejection fraction heart failure. Watch for changes in weight, changes in fluid balance and symptoms of respiratory illness 4. COPD (chronic obstructive pulmonary disease) Status Chronic Onset Date Unknown Plan Return home with appropriate respiratory guidelines for treating COPD. Continue with the respiratory outpatient care. 5. Nicotine dependence Status Chronic Onset Date Unknown Plan Encouraged patient to continue the smoking cessation. Nicotine patch or replacement is encouraged. Current status: Fair, stable Anticipated discharge date: Anticipated discharge in 1-2 days Anticipated discharge placement: Home versus custodial facility Patient care time: Time spent in chart review, patient interview, physical exam, CPOE, and care documentation: 35 minutes Visit to patient today: Complexity of care: High DVT prophylaxis: Coumadin therapeutic dosage GI prophylaxis: Protonix 40 mg by mouth daily Initial patient evaluation: Emergency department Advance care plan: CODE STATUS-No Code
--- NOTE | 2017-04-02 07:21 | Progress Note ---
Subjective General Note Date: 04/02/2017 Admission Date: date March 30, 2017 Hospital Day: Hospital day 4 PCP: Kayden Guevara MD Status: Fair Advanced Directive: No Code Room: [address] [place] [address] The patient is a 82-year-old single white female with a significant past medical history of coronary artery disease status post myocardial infarction, peptic ulcer disease, atrial fibrillation, chronic anticoagulation, COPD, adult-onset diabetes mellitus, cerebrovascular disease status post CVA, who presented to [facility] emergency room on the day of admission secondary to complaints of generalized weakness, shortness of breath, and rapid heart rate. [facility] ER evaluation was consistent with atrial fibrillation with rapid ventricular response heart rate 1 40/m, CHF, exacerbation of COPD, and anemia. Secondary to the above, the patient was admitted by Misael Galan M.D. for further evaluation and treatment. Subjective Patient states that she is feeling relatively well. Patient reports that she is feeling tired today. Patient was able to sit up in bed, any. Patient has generalized weakness. Patient typically is sedentary. Patient lives on her own takes care of her own needs. She does have a daughter and family members see her on a daily basis. Patient has no other complaints today. Patient states she is ready to go home Patient requests Go home Physical Exam Vital Signs / I&Os Vital Signs Date Time Temp Pulse Resp B/P Pulse O2 O2 Flow FiO2 Ox Delivery Rate 04/02 0253 97.5 93 16 110/62 97 Room Air 0.0 04/02 0235 94 15 / 2235 97.3 103 16 107/62 96 1.0 / 2000 Room Air / 1830 97.5 101 18 110/61 95 Room Air 05/ 1400 98.1 93 18 102/55 97 Room Air 05/ 1323 113 05/06 1113 119 18 107/77 95 Room Air 05/ 1015 98.1 105 19 103/54 95 Room Air 05/ 0914 115 18 106/63 94 Room Air I&O / 0800 05/06 1600 04/02 0000 Intake Total 1299 822 640 Output Total 1010 225 650 Balance 289 597 -10 General Appearance Cooperative, No acute distress HEENT EOMI Lungs air movement is relatively normal Neck No JVD Cardiovascular Normal S1 and S2 Abdomen Soft, No tenderness, No guarding Extremities No cyanosis, No clubbing, No edema Psych/Mental Status Mood normal LAB Results Laboratory Tests 04/01 04/02 1620 0526 Chemistry Plasma Sodium (136 - 145 mmol/L) 143 Plasma Potassium (3.5 - 5.1 mmol/L) 4.5 Plasma Chloride (98 - 107 mmol/L) 111 CO2 (Enzymatic) (21 - 32 mmol/L) 23 BUN (7 - 18 mg/dL) 14 Creatinine (0.6 - 1.3 mg/dL) 0.9 Est GFR ( Amer) (mL/min) >60 Est GFR (Non-Af Amer) (mL/min) >60 Glucose (70 - 110 mg/dL) 95 Plasma Calcium (8.5 - 10.1 mg/dL) 7.4 Total Bilirubin (0.0 - 1.0 mg/dL) 0.5 AST (15 - 37 U/L) 29 ALT (12 - 78 U/L) 26 Alkaline Phosphatase (46 - 116 U/L) 77 Total Protein (6.4 - 8.2 g/dL) 5.2 Albumin (3.3 - 5.0 g/dL) 2.2 Coagulation INR (0.8 - 1.2) 2.9 Hematology WBC (4.5 - 11.5 K/uL) 8.0 RBC (4.00 - 5.20 M/uL) 4.13 Hgb (12.0 - 16.0 gm/dL) 10.2 Hct (36.0 - 46.0 %) 32.8 MCV (80 - 100 fL) 79 MCH (26 - 34 pg) 25 RDW (11.6 - 14.8 %) 23.9 Plt Count, EDTA (150 - 400 K/uL) 267 RBC Morphology (32247 A) 1+ POLYCHROMIA PUBS MCHC (31 - 37 g/dL) 31 Toxicology Digoxin (0.9 - 2.0 ng/mL) 2.0 Assessment and Plan Problem List 1. Atrial fibrillation with rapid ventricular response Plan A. fib with rapid ventricular response. Currently rate control and measures. Patient was given digoxin on her second day of hospitalization. Echocardiogram showed an EF of 50-55%. Diastolic function was not appreciated on echocardiogram. Probable normal ejection fraction. Cardiac failure. Patient with history of COPD. May have some obstructive signs at night. Patient is follow-up with primary care provider on discharge. May consider a cardiac referral plus pulmonary referral. Patient will return home once her strength improves through a SNIF. 2. Renal insufficiency Plan There is mild degree of renal insufficiency. Appropriate fluid balance in this case is challenging. Given the level of renal insufficiency and heart failure. Patient should be fluid restricted to 2.5 L per day. Salt restricted diet 3. CHF exacerbation Plan Exacerbation of chronic heart failure. Preserved Ejection fraction heart failure. Watch for changes in weight, changes in fluid balance and symptoms of respiratory illness 4. COPD (chronic obstructive pulmonary disease) Status Chronic Onset Date Unknown Plan Return home with appropriate respiratory guidelines for treating COPD. Continue with the respiratory outpatient care. 5. Nicotine dependence Status Chronic Onset Date Unknown Plan Encouraged patient to continue the smoking cessation. Nicotine patch or replacement is encouraged. Current status: Fair, stable Anticipated discharge date: Anticipated discharge in 1-2 days Anticipated discharge placement: Home versus senior living facility Patient care time: Time spent in chart review, patient interview, physical exam, CPOE, and care documentation: 35 minutes Visit to patient today: Complexity of care: High DVT prophylaxis: Coumadin therapeutic dosage GI prophylaxis: Protonix 40 mg by mouth daily Initial patient evaluation: Emergency department Advance care plan: CODE STATUS-No Code
[2017-04-02 07:52] VITALS: BP 113/78
[2017-04-02 11:29] VITALS: BP 98/62
[2017-04-02] MEDS ORDERED: DIGOXIN0.125 MG PO (12:39)
--- NOTE | 2017-04-02 12:44 | Provider's Discharge Care Plan ---
Problem, Goal, Plan Problem List 1. Congestive heart failure Goals: Improve disease control, Improve function, Learn about illness Instructions: Take meds as directed, Stop smoking 2. CHF exacerbation Goals: Improve disease control, Improve function, Improve nutrition status, Prevent disease progress Instructions: Follow up as directed, Stop smoking 3. Renal insufficiency Goals: Improve function, Improved health/wellness, Improve nutrition status Instructions: Follow up as directed, Take meds as directed, Avoid processed foods 4. Atrial fibrillation with rapid ventricular response Goals: Improve disease control, Learn about illness, Therapeutic intervention Instructions: Follow up as directed, Stop smoking 5. COPD (chronic obstructive pulmonary disease) Goals: Improve disease control, Improve nutrition status, Therapeutic intervention Instructions: Stop smoking 6. Anemia Goals: Diagnostic testing, Learn about illness, Prevent disease progress Instructions: Follow up as directed, Take meds as directed 7. Nicotine dependence Goals: Screening, Therapeutic intervention, smoking cessation encouraged Instructions: Stop smoking, you May use some form of patch for replacement
--- NOTE | 2017-04-02 12:49 | Discharge Summary ---
Discharge Summary Report Admit Date 03/30/17 Discharge Date 04/02/17 Admission Diagnosis 1. Atrial fibrillation with rapid ventricular response 2. Congestive heart failure 3. Weakness, generalized. 4. Lactic acidosis. 5. Anemia. 6. COPD 7. Nicotine dependence Discharge Diagnosis 1. Atrial fibrillation with rapid ventricular response 2. Congestive heart failure with preserved ejection fraction 3. Weakness, generalized. 4. Lactic acidosis , resolved 5. Anemia 6. COPD 7. Nicotine dependence Brief History 82-year-old single white female with a significant past medical history of coronary artery disease status post myocardial infarction, peptic ulcer disease, atrial fibrillation, chronic anticoagulation, COPD, adult-onset diabetes mellitus, cerebrovascular disease status post CVA, who presented to [facility] emergency room on the day of admission secondary to complaints of generalized weakness, shortness of breath, and rapid heart rate. [facility] ER evaluation was consistent with atrial fibrillation with rapid ventricular response heart rate 140/m, CHF, exacerbation of COPD, and anemia. Secondary to the above, the patient was admitted by Misael Galan M.D. for further evaluation and treatment. Hospital Course Patient had an unremarkable hospital course. Patient was seen and admitted for weakness CHF echo was done with a preserved ejection fraction. Patient was started on digoxin. She was tachycardia during much of the study. Patient had improvement in her status over the next 2 days. Patient had good appetite, remained alert and awake. Patient was discharged to [facility] [place]. General Appearance Cooperative, No acute distress HEENT EOMI Lungs decreased airway movement, senorous rales Cardiovascular Normal S1, Normal S2 Neurological Cranial nerves 3-12 NL Psych/Mental Status Mood NL Lab/Imaging Laboratory Tests 04/01 04/02 1620 0526 Chemistry Plasma Sodium (136 - 145 mmol/L) 143 Plasma Potassium (3.5 - 5.1 mmol/L) 4.5 Plasma Chloride (98 - 107 mmol/L) 111 CO2 (Enzymatic) (21 - 32 mmol/L) 23 BUN (7 - 18 mg/dL) 14 Creatinine (0.6 - 1.3 mg/dL) 0.9 Est GFR ( Amer) (mL/min) >60 Est GFR (Non-Af Amer) (mL/min) >60 Glucose (70 - 110 mg/dL) 95 Plasma Calcium (8.5 - 10.1 mg/dL) 7.4 Total Bilirubin (0.0 - 1.0 mg/dL) 0.5 AST (15 - 37 U/L) 29 ALT (12 - 78 U/L) 26 Alkaline Phosphatase (46 - 116 U/L) 77 Total Protein (6.4 - 8.2 g/dL) 5.2 Albumin (3.3 - 5.0 g/dL) 2.2 Coagulation INR (0.8 - 1.2) 2.9 Hematology WBC (4.5 - 11.5 K/uL) 8.0 RBC (4.00 - 5.20 M/uL) 4.13 Hgb (12.0 - 16.0 gm/dL) 10.2 Hct (36.0 - 46.0 %) 32.8 MCV (80 - 100 fL) 79 MCH (26 - 34 pg) 25 RDW (11.6 - 14.8 %) 23.9 Plt Count, EDTA (150 - 400 K/uL) 267 RBC Morphology (83622 A) 1+ POLYCHROMIA PUBS MCHC (31 - 37 g/dL) 31 Toxicology Digoxin (0.9 - 2.0 ng/mL) 2.0 Discharge Instructions/Meds Patient is discharged to intermediate facility with [facility]. There patient should receive adequate rehabilitation measures to promote conditioning and strengthening. Cardiac conditioning is imperative. Patient was discharged on her home medication which included; Metoprolol XL 50 mg 1 by mouth daily, Lasix 20 mg by mouth daily., Coumadin 2.5 mg daily, Spiriva 1 inhale inhalation daily. Metformin 250 mg by mouth every morning. Pro Air HFA 1-2 inhalations every 6 hours as needed. The patient was started on the digoxin. 125 g by mouth daily. The Patient needs outpatient follow-up for digoxin levels. Also should be seen by cardiology to optimize cardiac function. Patient should be reviewed for any other pertinent emergent concerns. Through the ER or urgent care clinic.
--- NOTE | 2017-04-02 12:49 | Discharge Summary ---
Discharge Summary Report Admit Date 03/30/17 Discharge Date 04/02/17 Admission Diagnosis 1. Atrial fibrillation with rapid ventricular response 2. Congestive heart failure 3. Weakness, generalized. 4. Lactic acidosis. 5. Anemia. 6. COPD 7. Nicotine dependence Discharge Diagnosis 1. Atrial fibrillation with rapid ventricular response 2. Congestive heart failure with preserved ejection fraction 3. Weakness, generalized. 4. Lactic acidosis , resolved 5. Anemia 6. COPD 7. Nicotine dependence Brief History 82-year-old single white female with a significant past medical history of coronary artery disease status post myocardial infarction, peptic ulcer disease, atrial fibrillation, chronic anticoagulation, COPD, adult-onset diabetes mellitus, cerebrovascular disease status post CVA, who presented to [facility] emergency room on the day of admission secondary to complaints of generalized weakness, shortness of breath, and rapid heart rate. [facility] ER evaluation was consistent with atrial fibrillation with rapid ventricular response heart rate 140/m, CHF, exacerbation of COPD, and anemia. Secondary to the above, the patient was admitted by Misael Galan M.D. for further evaluation and treatment. Hospital Course Patient had an unremarkable hospital course. Patient was seen and admitted for weakness CHF echo was done with a preserved ejection fraction. Patient was started on digoxin. She was tachycardia during much of the study. Patient had improvement in her status over the next 2 days. Patient had good appetite, remained alert and awake. Patient was discharged to [facility] [place]. General Appearance Cooperative, No acute distress HEENT EOMI Lungs decreased airway movement, senorous rales Cardiovascular Normal S1, Normal S2 Neurological Cranial nerves 3-12 NL Psych/Mental Status Mood NL Lab/Imaging Laboratory Tests 04/01 04/02 1620 0526 Chemistry Plasma Sodium (136 - 145 mmol/L) 143 Plasma Potassium (3.5 - 5.1 mmol/L) 4.5 Plasma Chloride (98 - 107 mmol/L) 111 CO2 (Enzymatic) (21 - 32 mmol/L) 23 BUN (7 - 18 mg/dL) 14 Creatinine (0.6 - 1.3 mg/dL) 0.9 Est GFR ( Amer) (mL/min) >60 Est GFR (Non-Af Amer) (mL/min) >60 Glucose (70 - 110 mg/dL) 95 Plasma Calcium (8.5 - 10.1 mg/dL) 7.4 Total Bilirubin (0.0 - 1.0 mg/dL) 0.5 AST (15 - 37 U/L) 29 ALT (12 - 78 U/L) 26 Alkaline Phosphatase (46 - 116 U/L) 77 Total Protein (6.4 - 8.2 g/dL) 5.2 Albumin (3.3 - 5.0 g/dL) 2.2 Coagulation INR (0.8 - 1.2) 2.9 Hematology WBC (4.5 - 11.5 K/uL) 8.0 RBC (4.00 - 5.20 M/uL) 4.13 Hgb (12.0 - 16.0 gm/dL) 10.2 Hct (36.0 - 46.0 %) 32.8 MCV (80 - 100 fL) 79 MCH (26 - 34 pg) 25 RDW (11.6 - 14.8 %) 23.9 Plt Count, EDTA (150 - 400 K/uL) 267 RBC Morphology (60501 A) 1+ POLYCHROMIA PUBS MCHC (31 - 37 g/dL) 31 Toxicology Digoxin (0.9 - 2.0 ng/mL) 2.0 Discharge Instructions/Meds Patient is discharged to [facility] facility with [facility]. There patient should receive adequate rehabilitation measures to promote conditioning and strengthening. Cardiac conditioning is imperative. Patient was discharged on her home medication which included; Metoprolol XL 50 mg 1 by mouth daily, Lasix 20 mg by mouth daily., Coumadin 2.5 mg daily, Spiriva 1 inhale inhalation daily. Metformin 250 mg by mouth every morning. Pro Air HFA 1-2 inhalations every 6 hours as needed. The patient was started on the digoxin. 125 g by mouth daily. The Patient needs outpatient follow-up for digoxin levels. Also should be seen by cardiology to optimize cardiac function. Patient should be reviewed for any other pertinent emergent concerns. Through the ER or urgent care clinic.
[2017-04-02 14:32] VITALS: BP 112/79
== END 2017-04-02 15:35 | DRG 308 ==
LOC: ED SRH 12:09 → TRANS SRH 18:59 → CC SRH 21:10
PROVIDERS: ADMIT Internal Medicine
DX: I48.91 Unspecified atrial fibrillation (principal); I50.33 Acute on chronic diastolic (congestive) heart failure; J44.1 Chronic obstructive pulmonary disease with (acute) exacerbation; E87.2 Acidosis; R53.1 Weakness; D50.9 Iron deficiency anemia, unspecified; I25.10 Atherosclerotic heart disease of native coronary artery without angina pectoris; E11.9 Type 2 diabetes mellitus without complications; F03.90 Unspecified dementia, unspecified severity, without behavioral disturbance, psychotic disturbance, mood disturbance, and anxiety; N28.9 Disorder of kidney and ureter, unspecified; F17.210 Nicotine dependence, cigarettes, uncomplicated; Z79.01 Long term (current) use of anticoagulants; Z79.84 Long term (current) use of oral hypoglycemic drugs; I25.2 Old myocardial infarction
CPT/HCPCS: 81240; 81460; 83475; 85241; 90004; 90047; 90074; 90098; 90100; 90616; 91286; 91295; 91320; 91504; 91505; 92031; 92132; 92668; 92670; 92760; 92761; 92762; 92763; 92764; 92765; 92766; 92767; 93020; 93140; 94060; 95011; 95059

== ENCOUNTER 2017-06-12 07:52 | Emergency (ER) | payer OTHER ==
[~2017-06-12 07:52] MED LIST changes: +DIGOXIN0.125 MG PO
--- NOTE | 2017-06-12 09:07 | ED ORDER SUMMARY ---
..... Patient: TERI RAMIREZ OrderSheet [facility] VisitID: [id number] [address] [place], [place] [id number], F Registration Date/Time: 06/12/2017 ORDER SHEET Weight: 45.3 kg (stated) Allergies: Cortisone, Penicillin GENERAL ORDERS: Chest 1V Urgent (07:58 06/12/2017 Isaiah MORALES) (Ack 8:09 Wil) (8:13 JBoardley R.N.) Program Director/Air Personality (Continuous) (07:58 06/12/2017 Isaiah MORALES) (Ack 8:10 Wil) (8:13 JBoardley R.N.) CBC w Diff Urgent (07:06/12/2017 Isaiah MORALES) (Ack 8:05 Wil) (8:38 JBoardley R.N.) CMP Urgent (07:06/12/2017 Isaiah MORALES) (Ack 8:05 Wil) (8:38 JBoardley R.N.) UA-Culture if indicated Urgent (07:58 06/12/2017 Isaiah MORALES) (Ack 8:05 Wil) (9:24 IJurca R.N.) Amylase Urgent (07:06/12/2017 Isaiah MORALES) (Ack 8:05 Wil) (8:38 JBoardley R.N.) Lipase Urgent (07:06/12/2017 Isaiah MORALES) (Ack 8:05 Wil) (8:38 JBoardley R.N.) CPK Urgent (07:58 06/12/2017 Isaiah MORALES) (Ack 8:09 Wil) (8:38 JBoardley R.N.) Troponin-I Urgent (07:58 06/12/2017 Isaiah MORALES) (Ack 8:09 Wil) (8:38 JBoardley R.N.) PT with INR Urgent (07:58 06/12/2017 Isaiah MORALES) (Ack 8:09 Wil) (8:38 JBoardley R.N.) PTT Urgent (07:58 06/12/2017 Isaiah MORALES) (Ack 8:09 Wil) (8:38 JBoardley R.N.) BNP Urgent (07:58 06/12/2017 Isaiah MORALES) (Ack 8:09 Wil) (8:38 JBoardley R.N.) TSH Urgent (07:58 06/12/2017 Isaiah MORALES) (Ack 8:09 Wil) (8:38 JBoardley R.N.) Oxygen (2 L/min) (NC) (07:58 06/12/2017 Isaiah MORALES) (Ack 8:10 Wil) (8:13 JBoardley R.N.) Pulse oximeter (07:58 06/12/2017 Isaiah MORAELS) (Ack 8:10 Wil) (8:13 JBoardley R.N.) EKG - ER Stat (07:58 06/12/2017 Isaiah MORALES) (8:04 Wil) Digoxin Level Urgent (09:02 06/12/2017 Isaiah MORALES) (Ack 9:05 Wil) (9:24 IJurca R.N.) MEDICATION ORDERS: Aspirin PO 325 mg (Do not crush or chew, NOW) (08:38 06/12/2017 EMYoarramón R.N. verbal order read back to Isaiah MORALES) (8:39 JBoardley R.N.) NitroGLYCERIN SL 0.4 mg (NOW) (08:38 06/12/2017 Julio Cesar R.N. verbal order read back to Isaiah MORALES) (Cancelled: Other8:41 JBoardley R.N.) NitroGLYCERIN SL 0.4 mg (x3 PRN Chest Pain) (08:41 06/12/2017 JBoardlenathan R.N. verbal order read back to Isaiah MORALES) (8:47 IJurca R.N.) Digoxin PO 0.125 mg (NOW) (09:47 06/12/2017 Bailey MORALES) (Ack 9:48 IJurca R.N.) (9:52 IJurca R.N.) Metoprolol PO 50 mg (NOW) (09:47 06/12/2017 Bailey MORALES) (Ack 9:48 IJurca R.N.) (9:52 Flaquitaa R.N.) IV FLUIDS: IV Saline Lock (07:58 06/12/2017 Isaiah MORALES) (8:13 Julio Cesar R.N.) Lasix IV 20 mg (NOW) (08:40 06/12/2017 Isaiah MORALES) (9:06 IJurca R.N.) ORDER SHEET NOTES: [Electronically signed by Fabio De Jesus R.N. (10:42 06/12/2017)] [Electronically signed by Javon Gordon MD (22:29 06/14/2017)] [Electronically locked/signed by Fabio De Jesus R.N. (10:42 06/12/2017)]
--- NOTE | 2017-06-12 09:07 | ED ORDER SUMMARY ---
..... Patient: TERI RAMIREZ OrderSheet Formerly [facility] VisitID: [id number] [address] [place], [place] [id number], F Registration Date/Time: 06/12/2017 ORDER SHEET Weight: 45.3 kg (stated) Allergies: Cortisone, Penicillin GENERAL ORDERS: Chest 1V Urgent (07:58 06/12/2017 Isaiah MORALES) (Ack 8:09 Wil) (8:13 JBoardley R.N.) Asset Recovery Specialist (Continuous) (07:58 06/12/2017 Isaiah MORALES) (Ack 8:10 Wil) (8:13 JBoardley R.N.) CBC w Diff Urgent (07:06/12/2017 Isaiah MORALES) (Ack 8:05 Wil) (8:38 JBoardley R.N.) CMP Urgent (07:06/12/2017 Isaiah MORALES) (Ack 8:05 Wil) (8:38 JBoardley R.N.) UA-Culture if indicated Urgent (07:58 06/12/2017 Isaiah MORALES) (Ack 8:05 Wil) (9:24 IJurca R.N.) Amylase Urgent (07:06/12/2017 Isaiah MORALES) (Ack 8:05 Wil) (8:38 JBoardley R.N.) Lipase Urgent (07:06/12/2017 Isaiah MORALES) (Ack 8:05 Wil) (8:38 JBoardley R.N.) CPK Urgent (07:58 06/12/2017 Isaiah MORALES) (Ack 8:09 Wil) (8:38 JBoardley R.N.) Troponin-I Urgent (07:58 06/12/2017 Isaiah MORALES) (Ack 8:09 Wil) (8:38 JBoardley R.N.) PT with INR Urgent (07:58 06/12/2017 Isaiah MORALES) (Ack 8:09 Wil) (8:38 JBoardley R.N.) PTT Urgent (07:58 06/12/2017 Isaiah MORALES) (Ack 8:09 Wil) (8:38 JBoardley R.N.) BNP Urgent (07:58 06/12/2017 Isaiah MORALES) (Ack 8:09 Wil) (8:38 JBoardley R.N.) TSH Urgent (07:58 06/12/2017 Isaiah MORALES) (Ack 8:09 Wil) (8:38 JBoardley R.N.) Oxygen (2 L/min) (NC) (07:58 06/12/2017 Isaiah MORALES) (Ack 8:10 Wil) (8:13 JBoardley R.N.) Pulse oximeter (07:58 06/12/2017 Isaiah MORALES) (Ack 8:10 Wil) (8:13 JBoardley R.N.) EKG - ER Stat (07:58 06/12/2017 Isaiah MORALES) (8:04 Wil) Digoxin Level Urgent (09:02 06/12/2017 Isaiah MORALES) (Ack 9:05 Wil) (9:24 IJurca R.N.) MEDICATION ORDERS: Aspirin PO 325 mg (Do not crush or chew, NOW) (08:38 06/12/2017 EMYoarramón R.N. verbal order read back to Isaiah MORALES) (8:39 JBoardley R.N.) NitroGLYCERIN SL 0.4 mg (NOW) (08:38 06/12/2017 Julio Cesar R.N. verbal order read back to Isaiah MORALES) (Cancelled: Other8:41 JBoardley R.N.) NitroGLYCERIN SL 0.4 mg (x3 PRN Chest Pain) (08:41 06/12/2017 JBoardlenathan R.N. verbal order read back to Isaiah MORALES) (8:47 IJurca R.N.) Digoxin PO 0.125 mg (NOW) (09:47 06/12/2017 Bailey MORALES) (Ack 9:48 IJurca R.N.) (9:52 IJurca R.N.) Metoprolol PO 50 mg (NOW) (09:47 06/12/2017 Bailey MORALES) (Ack 9:48 IJurca R.N.) (9:52 Flaquitaa R.N.) IV FLUIDS: IV Saline Lock (07:58 06/12/2017 Isaiah MORALES) (8:13 Julio Cesar R.N.) Lasix IV 20 mg (NOW) (08:40 06/12/2017 Isaiah MORALES) (9:06 IJurca R.N.) ORDER SHEET NOTES: [Electronically signed by Fabio De Jesus R.N. (10:42 06/12/2017)] [Electronically signed by Javon Gordon MD (22:29 06/14/2017)] [Electronically locked/signed by Fabio De Jesus R.N. (10:42 06/12/2017)]
--- NOTE | 2017-06-12 09:07 | ED CLINICAL REPORT ---
Clinical Report - Physicians/Mid Levels [facility] [address] [place] [address] 06/12/2017 7:52 Patient: TERI RAMIREZ Time Seen: 07:57. Arrived- By ambulance. Historian- patient and EMS personnel. History limited by vague historian. HISTORY OF PRESENT ILLNESS Chief Complaint: CHEST PAIN. This started last night and is now gone. It was abrupt in onset and has been constant and waxing/waning. Onset during light activity. It is described as pressure and "pain" and it is described as located in the central chest and left chest area. No radiation. At its maximum, severity described as severe. When seen in the E.D., severity described as severe. Modifying factors- relieved by nitroglycerin (from patients own supply). (she reports that she ran out of her nitroglycerin last night.). Relief was transient. No vomiting or diaphoresis. Similar symptoms previously: Diagnosis: angina. REVIEW OF SYSTEMS No chills, fever, sweats, calf pain or cough. No difficulty breathing, abdominal pain, constipation, diarrhea or nausea. No vomiting. She has had palpitations (chronically). It has been similar to previous symptoms. She has had mild pain during urination. All systems otherwise negative, except as recorded above. SOCIAL HISTORY Former smoker, end date 02/2017. Resides in a [facility]. FAMILY HISTORY Denies family medical history. ADDITIONAL NOTES The nursing notes have been reviewed. PHYSICAL EXAM Vital Signs: 06/12/2017 07:54 BP: 148/121. HR: 108. RR: 25. O2 saturation: 95%. Temp: 97.8 F. Have been reviewed. Appearance: Alert. No acute distress. Eyes: Pupils equal, round and reactive to light. ENT: Pharynx normal. Neck: Normal inspection. Neck supple. No JVD. CVS: Abnormal rhythm, which is irregularly irregular. Respiratory: No respiratory distress. Decreased air movement. Abdomen: Soft and nontender. Bowel sounds normal. No organomegaly. No mass. Back: (kyphotic). Skin: Skin warm and dry. Normal skin color. Normal skin turgor. Extremities: Extremities exhibit normal ROM. No calf tenderness. No lower extremity edema. LABS, X-RAYS, AND EKG EKG: Rate: 107. Atrial fibrillation. Non-specific ST segment / T wave abnormalities. EKG unchanged when compared with prior EKG. (30 Mar 2017). Chest X-ray: Vascular congestion present. Cardiomegaly. The X-rays were independently viewed by me. Laboratory Tests: UA-Culture if indicated: (MARIANN: 06/12/2017 08:40) ( [facility] 06/12/2017 09:01) IP Test Result Flag Units (Reference) URINE COLOR YELLOW URINE APPEARANCE SL CLOUDY URINE GLUCOSE NEGATIVE (NEGATIVE) URINE BILIRUBIN NEGATIVE (NEGATIVE) URINE KETONE NEGATIVE (NEGATIVE) URINE SPECIFIC GRAVITY 1.010 (1.010-1.030) URINE PH 6.0 (5.0-8.0) URINE PROTEIN NEGATIVE (NEGATIVE) URINE UROBILINOGEN 0.2 EU/dL (0.2-1.0) URINE NITRITE POSITIVE (NEGATIVE) URINE BLOOD TRACE-LYSED (NEGATIVE) URINE LEUK ESTERASE NEGATIVE (NEGATIVE) CBC w Diff: (MARIANN: 06/12/2017 08:00) ( [facility] 06/12/2017 08:16) Final results Test Result Flag Units (Reference) WHITE BLOOD COUNT 7.1 K/uL (4.5-11.5) RED BLOOD COUNT 4.41 M/uL (4.00-5.20) HEMOGLOBIN 11.4 L gm/dL (12.0-16.0) HEMATOCRIT 36.5 % (36.0-46.0) MEAN CELL VOLUME 83 fL (80-100) MEAN CORPUSCULAR HGB 26 pg (26-34) MEAN CORPUSCULAR HGB CONC 31 g/dL (31-37) RED CELL DISTRIBUTION WIDTH 20.5 H % (11.6-14.8) PLATELET COUNT 230 K/uL (150-400) NEUTROPHIL % 74.5 % (50-75) LYMPH % 20.2 L % (25-40) MONO % 4.1 % (3-14) EOSINOPHIL % 0.9 % (0-4) BASOPHIL % 0.3 % (0-2) PT with INR: (MARIANN: 06/12/2017 08:00) ( [facility] 06/12/2017 08:18) Final results Test Result Flag Units (Reference) INR 1.2 (0.8-1.2) Low Intensity Therapy: INR 1.5-2.0 PT range 18.5-23.1Mod.Intensity Therapy: INR 2.0-3.0 PT range 23.1-31.5High Intensity Therapy: INR 2.5-3.5 PT range 27.4-35.5High Intensity Therapy 2: INR 3.0-4.0 PT range 31.5-39.3 APTT 38 H SECONDS (24-34) BNP: (MARIANN: 06/12/2017 08:00) ( [facility] 06/12/2017 08:37) Final results Test Result Flag Units (Reference) B-TYPE NATRIURETIC PEPTIDE 743 H pg/ml (5-100) CMP: (MARIANN: 06/12/2017 08:00) ( [facility] 06/12/2017 08:35) Final results Test Result Flag Units (Reference) GLUCOSE 152 H mg/dL (70-110) BUN 26 H mg/dL (7-18) CREATININE 1.3 mg/dL (0.6-1.3) Estimated GFR 41.68 mL/min Estimated GFR- 50.51 mL/min Note: Persistent reduction over 3 months in eGFR<60 mL/min/1.73 m2 defines CKD. Patients with eGFR values>=60 mL/min/1.73 m2 may also have CKD if evidence ofpersistent proteinuria. Additional information may be foundat www.kidney.org. SODIUM 141 mmol/L (136-145) POTASSIUM 4.8 mmol/L (3.5-5.1) CHLORIDE 105 mmol/L (98-107) CARBON DIOXIDE 26 mmol/L (21-32) CALCIUM 8.4 L mg/dL (8.5-10.1) TOTAL PROTEIN 7.5 g/dL (6.4-8.2) ALBUMIN 3.6 g/dL (3.3-5.0) BILIRUBIN, TOTAL 0.6 mg/dL (0.0-1.0) ALKALINE PHOSPHATASE 112 U/L (46-116) AST (SGOT) 35 U/L (15-37) ALT (SGPT) 29 U/L (12-78) LIPASE 135 U/L (73-393) AMYLASE 41 U/L (25-115) CPK 84 U/L (24-260) TROPONIN I <0.05 ng/mL (0.00-1.5) TROPONIN REFERENCE RANGE:<0.1 NEGATIVE0.1-1.5 INDETERMINANT>1.5 POSITIVE THYROID STIMULATING HORMONE 3.145 uIU/mL (0.30-3.74) . PROGRESS AND PROCEDURES Course of Care: the patient has completed a POLST form. She is DNR/DNI with comfort measures only. I confirmed his wishes with her verbally. Discussed case with patient's primary care provider, (Cara). Reviewed test results and need for additional work-up. Agreed upon treatment plan and need for patient follow-up. Health care provider will see patient in office. Patient/family counseled. Old medical records reviewed. Disposition: Discharged to [facility]. Condition: stable. CLINICAL IMPRESSION Chronic atrial fibrillation. Chronic congestive heart failure. Angina Abnormal tests: (subtherapeutic INR). Acute urinary tract infection. INSTRUCTIONS Avoid stimulants (such as cigarettes, coffee, cold medicines, sinus medicines, street drugs). Warnings: Further evaluation is necessary. GENERAL WARNINGS: Return or contact your physician immediately if your condition worsens or changes unexpectedly, if not improving as expected, or if other problems arise. Your Current Medications: CHANGE THE FOLLOWING MEDICATIONS TO: Warfarin Sodium Oral : 2.5 mg at bedtime. CONTINUE TAKING THE FOLLOWING MEDICATIONS: Cerovite Senior Oral : 1 tablet daily. Digoxin Oral : Tablet 125 mcg, 1 tablet daily. Ferrous Sulfate Oral : Tablet Delayed Release 325 (65 Fe) mg, 1 tablet daily. Furosemide Oral : 20 mg daily. MetFORMIN HCl Oral : Tablet 500 mg, 1/2 tablet daily. Metoprolol Succinate ER Oral : Tablet Extended Release 24 Hour 50 mg, 1 tablet am. Prescription Medications: Macrobid 100 mg: Take 1 capsule orally every 12 hours for 7 days. No refills. Substitution is permissible. Nitrostat 0.4 mg: dissolve 1 tablet under tongue every 5 minutes as needed for chest pain. Dispense one hundred (100). No refills. Substitution is permissible. Coumadin 2.5 mg: take 1 tablet orally every 24 hours. Dispense fifteen (15). No refills. Substitution is permissible. Understanding of the discharge instructions verbalized by patient. Follow-up with: Kayden Guevara MD, [facility], , [address] [place] [address] Follow up Monday in four days. Call for an appointment. Reason for referral: To check your Coumadin levelINR. (Electronically signed by Javon Gordon MD 06/14/2017 22:29)
--- NOTE | 2017-06-12 09:07 | ED NURSING NOTES ---
Clinical Report - Nurses Formerly [facility] [address] [place] [address] 06/12/2017 7:52 Patient: TERI RAMIREZ TRIAGE Triage time 07:54. Acuity: LEVEL 3. Chief Complaint: CHEST PAIN and (CP and palpitations. Sharp pain that is reproducible in Left side of chest). Alert. No acute distress. LUMA COMA SCORE: Luma Coma Scale: 15- eyes open spontaneously (4); best verbal response- oriented x 4 (5); best motor response- obeys commands (6). --08:11 Fabio De Jesus R.N. 07:54 06/12/17. BP: 148/121. HR: 108. RR: 25. O2 saturation: 95%. Temp: 97.8 F. Pain level now 810. --08:11 Fabio De Jesus R.N. Weight: 45.3 kg stated. Height/Length: 66 inches Per Patient. BMI: 16.1. --08:08 Fabio De Jesus R.N. Medications Warfarin Sodium Oral 2 mg, Sat-Gricelda (with 5mg dose every Monday night (as of 06/06/17)). --07:59 Fabio De Jesus R.N. Furosemide Oral 20 mg, daily. MetFORMIN HCl Oral (Tablet 500 mg) 1/2 tablet, daily. Metoprolol Succinate ER Oral (Tablet Extended Release 24 Hour 50 mg) 1 tablet, am. Nitroglycerin Translingual. Spiriva HandiHaler Inhalation, daily- (is taking twice a day most days). --07:59 Fabio De Jesus R.N. Digoxin Oral (Tablet 125 mcg) 1 tablet, daily. --08:01 Fabio De Jesus R.N. Ferrous Sulfate Oral (Tablet Delayed Release 325 (65 Fe) mg) 1 tablet, daily. --08:01 Fabio De Jesus R.N. Omeprazole Oral (Tablet Delayed Release 20 mg) 1 tablet, daily. --08:01 Fabio De Jesus R.N. Cerovite Senior Oral 1 tablet, daily. --08:48 Fabio De Jesus R.N. The following entry was struck and corrected by Fabio De Jesus R.N., 08:52 (06/12/17) Reason for correction - other(correction). <<STRICKEN ENTRY-- Warfarin Sodium Oral 2.5 mg, daily. --07:59 Fabio De Jesus R.N. --END STRIKE>> The following entry was struck and corrected by Fabio De Jesus R.N., 08:49 (06/12/17) Reason for correction - other(correction). <<STRICKEN ENTRY-- Omeprazole Oral. --08:01 Fabio De Jesus R.N. --END STRIKE>> The following entry was struck and corrected by Fabio De Jesus R.N., 08:49 (06/12/17) Reason for correction - other(correction). <<STRICKEN ENTRY-- Ferrous Sulfate Oral. --08:01 Fabio De Jesus R.N. --END STRIKE>> The following entry was struck and corrected by Fabio De Jesus R.N., 08:48 (06/12/17) Reason for correction - other(correction). <<STRICKEN ENTRY-- Digoxin Oral. --08:01 Fabio De Jesus R.N. --END STRIKE>>. Allergies Cortisone. Penicillin. --07:59 Fabio De Jesus R.N. History Arrived by EMS. Historian: EMS and patient. Primary physician (Paola). This started last night. Treatment GENERATOR MECHANIC: (7mg Diltiazem, second dose of 5mg Diltiazem, both by EMS enroute). Pre-hospital 12-lead EKG time: (0740). Pre-hospital 12-lead EKG performed en route. PAST MEDICAL HX: Diabetes mellitus. Heart disease. Lung disease. Immunizations: up-to-date. Denies current . SOCIAL HX: Former smoker, end date 04/2017 (Smoked since 6 yrs old). Alcohol use. Patient is a recovering alcoholic. No drug use. Infectious disease exposure. (Pt says "other residents are all sick"). SELF HARM ASSESSMENT: A self harm assessment was performed. The patient answered "no" to the question "Do you have thoughts of harming or killing yourself?". FUNCTIONAL ASSESSMENT: Functional assessment: no impairments noted. LEARNING NEEDS ASSESSMENT: The learning needs assessment revealed no barriers. ABUSE ASSESSMENT: Abuse assessment: The patient was asked "Do you feel safe in your home?". FALL RISK ASSESSMENT: Fall risk assessment completed. Risk factors identified include patient medications, age greater than 65 years and history of fall. SKIN INTEGRITY ASSESSMENT: Skin integrity risk assessment completed. No skin integrity risk identified. --08:11 Fabio De Jesus R.N. PROBLEMS: Atrial Fibrillation. --07:56 Fabio De Jesus R.N. CVA - Cerebrovascular Accident. Atypical Chest Pain. --07:58 Fabio De Jesus R.N. COPD - Chronic Obstructive Pulmonary Disease. Myocardial Infarction. --08:00 Fabio De Jesus R.N. Fall. Congestive Heart Failure. Coumadin Toxicity. Immunizations. Peptic Ulcer Disease. --08:02 Fabio De Jesus R.N. Renal Insufficiency. Dementia. Weakness. Diverticulitis. Osteoporosis. Near Syncope. Arrhythmia. Syncope. --08:23 Fabio De Jesus R.N. The following entry was modified by Fabio De Jesus R.N., 08:03 <<STRICKEN ENTRY-- Diabetes Mellitus. --14:44 Fabio De Jesus R.N. --END STRIKE>>. ADDITIONAL SURGERIES: Appendectomy. Carpal Tunnel Surgery. Hysterectomy. Knee Surgery. --08:03 Fabio De Jesus R.N. Interventions ID band on patient. To treatment room. --08:11 Fabio De Jesus R.N. 07:56 06/12/2017 Site #2 started prior to arrival by EMS via IV in the left wrist with an 22g angiocath. --08:21 Fabio De Jesus R.N. PHYSICAL ASSESSMENT To room via stretcher. GENERAL / NEURO / PSYCH: Alert. Oriented X 4. Appears in no acute distress. HEENT: Mucous membranes are pink. RESPIRATORY: Respirations not labored. CVS: Cardiac rhythm: atrial fibrillation. Capillary refill less than 2 seconds. GI / : Abdomen soft and nontender. EXTREMITIES: No lower extremity edema. SKIN: Skin is warm and dry. Skin is non-tender. --08:12 Fabio De Jesus R.N. NURSING PROGRESS NOTES 08:03 06/12/2017 Site #1 started via IV in the right antecubital space with an 20g angiocath, with aseptic technique and good blood return; one attempt. Blood drawn: rainbow set. Labeled in the presence of the patient and sent to the lab. Saline lock flushed with 10 mL saline. --08:13 Stewart Portillo R.N. 08:05. The plan of care for this patient has been created. Oxygen administered by nasal cannula at 2 liters. vehicle monitor technician, pulse oximeter and NIBP monitor placed on patient. Patient gowned. Reassurance given. Two patient identifiers checked. Call light placed in reach. Side rails up x 1. Bed placed in lowest position. Brakes of bed on. Patient ready for evaluation- chart flagged and ED physician notified. --08:14 Fabio De Jesus R.N. EKG time: (800). EKG was ordered, performed by a tech and shown to the ED physician. --08:20 Lynda Melendez 08:25 06/12/17. BP: 113/84. HR: 110. RR: 20. O2 saturation: 98% on room air. Pain level now: 8/10. --08:37 Fabio De Jesus R.N. 08:29 06/12/2017 Aspirin PO 325 mg given. Allergies verified and confirmed 5 rights. --08:39 Stewart Portillo R.N. 08:47 06/12/2017 Nitroglycerin SL Tablets 0.4 mg given. Allergies verified and confirmed 5 rights. --08:47 Fabio De Jesus R.N. 08:53 06/12/17. BP: 119/71. HR: 105. RR: 22. O2 saturation: 96%. Pain level now 7/10. --08:55 Fabio De Jesus R.N. ( Pt has POLST form indicating preference for DNR status w/ comfort measures only. Signed 05/03/17.). --08:57 Fabio De Jesus R.N. 09:01 06/12/2017 Lasix IVP 20 mg given over 2 minute(s) via site #1. Allergies verified and confirmed 5 rights. IV patency established. IV site checked: no pain, redness, or swelling. IV flushed thoroughly pre- and post-medication administration. IVP given by RN. --09:06 Fabio De Jesus R.N. 09:20 06/12/17. BP: 111/92. HR: 110. RR: 21. O2 saturation: 98% on nasal cannula at 2 liters/minute. Temp: 97.5 F. Pain level now: 01/06. --09:22 Fabio De Jesus R.N. ( Updated Pt with plan. Planning discharge; daughter enroute to take Pt home.). --09:26 Fabio De Jesus R.N. 09:52 06/12/2017 Digoxin (Digoxin) PO Tablets 0.125 mg given. Allergies verified and confirmed 5 rights. --09:52 Fabio De Jesus R.N. 09:52 06/12/2017 Metoprolol PO Tablets 50 mg given. Allergies verified and confirmed 5 rights. --09:52 Fabio De Jesus R.N. 09:54 06/12/17. BP: 110/86. HR: 111. RR: 21. O2 saturation: 99%. Temp: 97.5 F. Pain level now 01/06. --09:55 Fabio De Jesus R.N. DISPOSITION / DISCHARGE 09:58 06/12/2017 Site #2 removed upon discharge. Catheter intact. Bandage applied. --09:58 Fabio De Jesus R.N. 09:58 06/12/2017 Site #1 removed upon discharge. Catheter intact. Bandage applied. --09:59 Fabio De Jesus R.N. Departure time: 1025. Condition at departure: improved and stable. The goals identified in the patient's plan of care were met. No learning barriers present. Discharge instructions provided and reviewed with the patient and family (daughter). Reviewed medication(s) side effects, precautions, dosing and course information. Prescription(s) given to the medical supervisor. Reviewed referral to a primary care physician for followup. The patient was discharged by the physician. She was discharged home and accompanied by family. She left the Emergency Department in a wheelchair and via private vehicle. Family member driving. --10:40 Fabio De Jesus R.N. 09:54 06/12/17. BP: 110/86. HR: 111. RR: 21. O2 saturation: 99%. Temp: 97.5 F. Pain level now 01/06. --10:40 Fabio De Jesus R.N. Locked/Released at 06/12/2017 10:42 by Fabio De Jesus R.N.
--- NOTE | 2017-06-12 09:07 | ED CLINICAL REPORT ---
Clinical Report - Physicians/Mid Levels [facility] [address] [place] [address] 06/12/2017 7:52 Patient: TERI RAMIREZ Time Seen: 07:57. Arrived- By ambulance. Historian- patient and EMS personnel. History limited by vague historian. HISTORY OF PRESENT ILLNESS Chief Complaint: CHEST PAIN. This started last night and is now gone. It was abrupt in onset and has been constant and waxing/waning. Onset during light activity. It is described as pressure and "pain" and it is described as located in the central chest and left chest area. No radiation. At its maximum, severity described as severe. When seen in the E.D., severity described as severe. Modifying factors- relieved by nitroglycerin (from patients own supply). (she reports that she ran out of her nitroglycerin last night.). Relief was transient. No vomiting or diaphoresis. Similar symptoms previously: Diagnosis: angina. REVIEW OF SYSTEMS No chills, fever, sweats, calf pain or cough. No difficulty breathing, abdominal pain, constipation, diarrhea or nausea. No vomiting. She has had palpitations (chronically). It has been similar to previous symptoms. She has had mild pain during urination. All systems otherwise negative, except as recorded above. SOCIAL HISTORY Former smoker, end date 02/2017. Resides in a intermediate. FAMILY HISTORY Denies family medical history. ADDITIONAL NOTES The nursing notes have been reviewed. PHYSICAL EXAM Vital Signs: 06/12/2017 07:54 BP: 148/121. HR: 108. RR: 25. O2 saturation: 95%. Temp: 97.8 F. Have been reviewed. Appearance: Alert. No acute distress. Eyes: Pupils equal, round and reactive to light. ENT: Pharynx normal. Neck: Normal inspection. Neck supple. No JVD. CVS: Abnormal rhythm, which is irregularly irregular. Respiratory: No respiratory distress. Decreased air movement. Abdomen: Soft and nontender. Bowel sounds normal. No organomegaly. No mass. Back: (kyphotic). Skin: Skin warm and dry. Normal skin color. Normal skin turgor. Extremities: Extremities exhibit normal ROM. No calf tenderness. No lower extremity edema. LABS, X-RAYS, AND EKG EKG: Rate: 107. Atrial fibrillation. Non-specific ST segment / T wave abnormalities. EKG unchanged when compared with prior EKG. (30 Mar 2017). Chest X-ray: Vascular congestion present. Cardiomegaly. The X-rays were independently viewed by me. Laboratory Tests: UA-Culture if indicated: (MARIANN: 06/12/2017 08:40) ( [facility] 06/12/2017 09:01) IP Test Result Flag Units (Reference) URINE COLOR YELLOW URINE APPEARANCE SL CLOUDY URINE GLUCOSE NEGATIVE (NEGATIVE) URINE BILIRUBIN NEGATIVE (NEGATIVE) URINE KETONE NEGATIVE (NEGATIVE) URINE SPECIFIC GRAVITY 1.010 (1.010-1.030) URINE PH 6.0 (5.0-8.0) URINE PROTEIN NEGATIVE (NEGATIVE) URINE UROBILINOGEN 0.2 EU/dL (0.2-1.0) URINE NITRITE POSITIVE (NEGATIVE) URINE BLOOD TRACE-LYSED (NEGATIVE) URINE LEUK ESTERASE NEGATIVE (NEGATIVE) CBC w Diff: (MARIANN: 06/12/2017 08:00) ( [facility] 06/12/2017 08:16) Final results Test Result Flag Units (Reference) WHITE BLOOD COUNT 7.1 K/uL (4.5-11.5) RED BLOOD COUNT 4.41 M/uL (4.00-5.20) HEMOGLOBIN 11.4 L gm/dL (12.0-16.0) HEMATOCRIT 36.5 % (36.0-46.0) MEAN CELL VOLUME 83 fL (80-100) MEAN CORPUSCULAR HGB 26 pg (26-34) MEAN CORPUSCULAR HGB CONC 31 g/dL (31-37) RED CELL DISTRIBUTION WIDTH 20.5 H % (11.6-14.8) PLATELET COUNT 230 K/uL (150-400) NEUTROPHIL % 74.5 % (50-75) LYMPH % 20.2 L % (25-40) MONO % 4.1 % (3-14) EOSINOPHIL % 0.9 % (0-4) BASOPHIL % 0.3 % (0-2) PT with INR: (MARIANN: 06/12/2017 08:00) ( [facility] 06/12/2017 08:18) Final results Test Result Flag Units (Reference) INR 1.2 (0.8-1.2) Low Intensity Therapy: INR 1.5-2.0 PT range 18.5-23.1Mod.Intensity Therapy: INR 2.0-3.0 PT range 23.1-31.5High Intensity Therapy: INR 2.5-3.5 PT range 27.4-35.5High Intensity Therapy 2: INR 3.0-4.0 PT range 31.5-39.3 APTT 38 H SECONDS (24-34) BNP: (MARIANN: 06/12/2017 08:00) ( [facility] 06/12/2017 08:37) Final results Test Result Flag Units (Reference) B-TYPE NATRIURETIC PEPTIDE 743 H pg/ml (5-100) CMP: (MARIANN: 06/12/2017 08:00) ( [facility] 06/12/2017 08:35) Final results Test Result Flag Units (Reference) GLUCOSE 152 H mg/dL (70-110) BUN 26 H mg/dL (7-18) CREATININE 1.3 mg/dL (0.6-1.3) Estimated GFR 41.68 mL/min Estimated GFR- 50.51 mL/min Note: Persistent reduction over 3 months in eGFR<60 mL/min/1.73 m2 defines CKD. Patients with eGFR values>=60 mL/min/1.73 m2 may also have CKD if evidence ofpersistent proteinuria. Additional information may be foundat www.kidney.org. SODIUM 141 mmol/L (136-145) POTASSIUM 4.8 mmol/L (3.5-5.1) CHLORIDE 105 mmol/L (98-107) CARBON DIOXIDE 26 mmol/L (21-32) CALCIUM 8.4 L mg/dL (8.5-10.1) TOTAL PROTEIN 7.5 g/dL (6.4-8.2) ALBUMIN 3.6 g/dL (3.3-5.0) BILIRUBIN, TOTAL 0.6 mg/dL (0.0-1.0) ALKALINE PHOSPHATASE 112 U/L (46-116) AST (SGOT) 35 U/L (15-37) ALT (SGPT) 29 U/L (12-78) LIPASE 135 U/L (73-393) AMYLASE 41 U/L (25-115) CPK 84 U/L (24-260) TROPONIN I <0.05 ng/mL (0.00-1.5) TROPONIN REFERENCE RANGE:<0.1 NEGATIVE0.1-1.5 INDETERMINANT>1.5 POSITIVE THYROID STIMULATING HORMONE 3.145 uIU/mL (0.30-3.74) . PROGRESS AND PROCEDURES Course of Care: the patient has completed a POLST form. She is DNR/DNI with comfort measures only. I confirmed his wishes with her verbally. Discussed case with patient's primary care provider, (Cara). Reviewed test results and need for additional work-up. Agreed upon treatment plan and need for patient follow-up. Health care provider will see patient in office. Patient/family counseled. Old medical records reviewed. Disposition: Discharged to intermediate. Condition: stable. CLINICAL IMPRESSION Chronic atrial fibrillation. Chronic congestive heart failure. Angina Abnormal tests: (subtherapeutic INR). Acute urinary tract infection. INSTRUCTIONS Avoid stimulants (such as cigarettes, coffee, cold medicines, sinus medicines, street drugs). Warnings: Further evaluation is necessary. GENERAL WARNINGS: Return or contact your physician immediately if your condition worsens or changes unexpectedly, if not improving as expected, or if other problems arise. Your Current Medications: CHANGE THE FOLLOWING MEDICATIONS TO: Warfarin Sodium Oral : 2.5 mg at bedtime. CONTINUE TAKING THE FOLLOWING MEDICATIONS: Cerovite Senior Oral : 1 tablet daily. Digoxin Oral : Tablet 125 mcg, 1 tablet daily. Ferrous Sulfate Oral : Tablet Delayed Release 325 (65 Fe) mg, 1 tablet daily. Furosemide Oral : 20 mg daily. MetFORMIN HCl Oral : Tablet 500 mg, 1/2 tablet daily. Metoprolol Succinate ER Oral : Tablet Extended Release 24 Hour 50 mg, 1 tablet am. Prescription Medications: Macrobid 100 mg: Take 1 capsule orally every 12 hours for 7 days. No refills. Substitution is permissible. Nitrostat 0.4 mg: dissolve 1 tablet under tongue every 5 minutes as needed for chest pain. Dispense one hundred (100). No refills. Substitution is permissible. Coumadin 2.5 mg: take 1 tablet orally every 24 hours. Dispense fifteen (15). No refills. Substitution is permissible. Understanding of the discharge instructions verbalized by patient. Follow-up with: Kayden Guevara MD, [facility], , [address] [place] [address] Follow up Monday in four days. Call for an appointment. Reason for referral: To check your Coumadin levelINR. (Electronically signed by Javon Gordon MD 06/14/2017 22:29)
--- NOTE | 2017-06-12 10:22 | DIAGNOSTIC IMAGING REPORT ---
PROCEDURE: XR CHEST 1 VIEW INDICATION: Chest pain, tachycardia TECHNIQUE: Single view chest. 811 hours COMPARISON: 03/30/2017 FINDINGS: Moderate cardiomegaly, stable. Tortuous and slightly ectatic thoracic aorta, unchanged. Mild central vascular congestion. Diffuse interstitial thickening, similar compared to the prior study. Mild alveolar opacity in the right infrahilar region. No significant consolidations or pleural effusions. Demineralized osseous structures without acute fracture. Surgical clips at the gastroesophageal junction. IMPRESSION: 1. Stable cardiomegaly with findings of mild CHF, interstitial, and slight right lower lung pulmonary edema.
--- NOTE | 2017-06-14 22:29 | ED MAR SUMMARY ---
..... Medication Administration Record [facility] [address] [place] [address] Patient: TERI RAMIREZ Visit ID: [id number] [id number], F Weight: 45.3 kg Height/Length: 66 in BMI: 16.1 ALLERGIES: Cortisone, Penicillin Given 08:29 06/12/2017 Stewart Portillo RMariana Medication Administered: ASPIRIN [PO], Dose: 325 mg PO. Medication Ordered: Aspirin PO 325 mg (Do not crush or chew, NOW). Given 08:47 06/12/2017 Fabio De Jesus R.N. Medication Administered: NITROGLYCERIN [SL], Dose: 0.4 mg Tablets SL. Medication Ordered: NitroGLYCERIN SL 0.4 mg (x3 PRN Chest Pain). Given 09:01 06/12/2017 Fabio De Jesus R.N. Medication Administered: LASIX [IVP], Dose: 20 mg IVP over 2 minute(s), Site: #1 right AC. Medication Ordered: Lasix IV 20 mg (NOW). Given 09:52 06/12/2017 Fabio De Jesus R.N. Medication Administered: DIGOXIN [PO] (DIGOXIN), Dose: 0.125 mg Tablets PO. Medication Ordered: Digoxin PO 0.125 mg (NOW). Given 09:52 06/12/2017 Fabio De Jesus R.N. Medication Administered: METOPROLOL [PO], Dose: 50 mg Tablets PO. Medication Ordered: Metoprolol PO 50 mg (NOW).
--- NOTE | 2017-06-14 22:29 | ED DISCHARGE INSTRUCTIONS ---
Patient: TERI RAMIREZ General Instructions [facility] VisitID: [id number] Deangelo Rajput [place], [place] [id number], F Registration Date/Time: 06/12/2017 Chronic atrial fibrillation. Chronic congestive heart failure. Angina Abnormal tests: (subtherapeutic INR). Acute urinary tract infection. INSTRUCTIONS Avoid stimulants (such as cigarettes, coffee, cold medicines, sinus medicines, street drugs). Warnings: Further evaluation is necessary. GENERAL WARNINGS: Return or contact your physician immediately if your condition worsens or changes unexpectedly, if not improving as expected, or if other problems arise. Your Current Medications: CHANGE THE FOLLOWING MEDICATIONS TO: Warfarin Sodium Oral : 2.5 mg at bedtime. CONTINUE TAKING THE FOLLOWING MEDICATIONS: Cerovite Senior Oral : 1 tablet daily. Digoxin Oral : Tablet 125 mcg, 1 tablet daily. Ferrous Sulfate Oral : Tablet Delayed Release 325 (65 Fe) mg, 1 tablet daily. Furosemide Oral : 20 mg daily. MetFORMIN HCl Oral : Tablet 500 mg, 1/2 tablet daily. Metoprolol Succinate ER Oral : Tablet Extended Release 24 Hour 50 mg, 1 tablet am. Prescription Medications: Macrobid 100 mg: Take 1 capsule orally every 12 hours for 7 days. No refills. Substitution is permissible. Nitrostat 0.4 mg: dissolve 1 tablet under tongue every 5 minutes as needed for chest pain. Dispense one hundred (100). No refills. Substitution is permissible. Coumadin 2.5 mg: take 1 tablet orally every 24 hours. Dispense fifteen (15). No refills. Substitution is permissible. Understanding of the discharge instructions verbalized by patient. Follow-up with: Kayden Guevara MD, [facility], , [address] [place] [address], [id number] Follow up Monday in four days. Call for an appointment. Reason for referral: To check your Coumadin levelINR. ADDITIONAL INFORMATION Angina, Stable The chest discomfort you have experienced today appears to be coming from your hearta condition called angina. Angina is a pain in the heart due to poor blood flow from blockage by plaque in one or more of the small blood vessels that deliver oxygen to the heart muscle itself. Plaque is a fatty material made up of cholesterol and other particles that build up within the artery wall. Exercise, increased activity, emotional upset, or stress can trigger this pain. With proper treatment and lifestyle changes to reduce risk factors, most people with angina are able to maintain a full and active life. Angina is not a heart attack. But if angina pain is severe or prolonged, it can lead to a heart attack, also called acute myocardial infarction, or AMI. Your angina is under control at this time. Therefore, it is safe for you to go home. Home Care Rest at home today and avoid any strenuous activity. Take medicine (usually nitroglycerin) for chest pain exactly as prescribed. Keep your nitroglycerin with you at all times. When taking nitroglycerin for angina, sit or lie down. The medication may make you feel dizzy. Place one tablet under your tongue, or between your lip and gum, or between your cheek and gum. Let the tablet dissolve completely; do not chew or swallow the tablet. If you use a spray, then spray once on orunder your tongue. Do not inhale. Close your mouth. Wait a few seconds before you swallow. After taking one tablet or spraying once, continue sitting or lying for 5 minutes. If the angina goes away completely, rest awhile and continue your normal routine. If the angina continues or gets worse, CALL 911 immediately. Do NOT delay. You may be having a heart attack! After you call 911, take a second tablet. Or, spray a second time. Wait another 5 minutes. If the angina still does not go away, take a third tablet, or spray a third time. Do not take more than 3 tablets, or spray more than 3 times, within 15 minutes. Stay on the phone with 911 for further instructions. Note: Your healthcare provider may give you slightly different instructions than those above. If so, follow them carefully. Prevention Learn how to take your own blood pressure. Keep a record of your results. Ask your doctor which readings mean that you need medical attention. Maintain a healthy weight. Get help to lose any extra pounds. Cut back on salt. Limit canned, dried, packaged, and fast foods. Dont add salt to your food at the table. Season foods with herbs instead of salt when you cook. Begin an exercise program. Ask your doctor how to get started. You can benefit from simple activities such as walking or gardening. Break the smoking habit. Enroll in a stop-smoking program to improve your chances of success. Avoid stressful situations. Learn stress-management techniques. Follow Up with your doctor as instructed. If an x-ray or ECG (electrocardiogram) was done , it will be reviewed by another specialist. You will be notified of any new findings that may affect your care. Get Prompt Medical Attention if any of the following occur: Your pain recurs and is not relieved by your usual dose of nitroglycerin Shortness of breath or increased pain with breathing Angina with weakness, dizziness, fainting, heavy sweating, nausea, or vomiting A change in the type of pain: It feels different Becomes more severe Lasts longer or occurs more often Spreads to new areas (shoulder, arm, neck, jaw, or back) Less exertion required before the pain appears Extreme drowsiness, confusion Dizziness or vertigo (dizziness with spinning sensation) Weakness of an arm or leg or one side of the face Difficulty with speech or vision Bladder Infection,Female (Adult) A bladder infection ("cystitis" or "UTI") usually causes a constant urge to urinate and a burning when passing urine. Urine may be cloudy, smelly or dark. There may be pain in the lower abdomen. A bladder infection occurs when bacteria from the vaginal area enter the bladder opening (urethra). This can occur from sexual intercourse, wearing tight clothing, dehydration and other factors. Home Care: Drink lots of fluids (at least 6-8 glasses a day, unless you must restrict fluids for other medical reasons). This will force the medicine into your urinary system and flush the bacteria out of your body. Avoid sexual intercourse until your symptoms are gone. Avoid caffeine, alcohol and spicy foods. These can irritate the bladder. A bladder infection is treated with antibiotics. You may also be given Pyridium (generic = phenazopyridine) to reduce the burning sensation. This medicine will cause your urine to become a bright orange color. The orange urine may stain clothing. You may wear a pad or panty-liner to protect clothing. Preventing Future Infections: Always wipe from front to back after a bowel movement. Keep the genital area clean and dry. Drink plenty of fluids each day to avoid dehydration. Both sexual partners should wash before intercourse. Urinate right after intercourse to flush out the bladder. Wear cotton underwear and cotton-lined panty hose; avoid tight-fitting pants. If you are on control pills and are having frequent bladder infections, discuss with your doctor. Follow Up: Return to this facility or see your doctor if ALL symptoms are not gone after three days of treatment. Get Prompt Medical Attention if any of the following occur: Fever of 100.4F (38C) or higher, or as directed by your healthcare provider No improvement by the third day of treatment Increasing back or abdominal pain Repeated vomiting; unable to keep medicine down Weakness, dizziness or fainting Vaginal discharge Pain, redness or swelling in the labia (outer vaginal area) Nitrofurantoin, Nitrofurantoin, Macrocrystalline Oral capsule What is this medicine? NITROFURANTOIN (mohsen troe fyoor AN toyn) is an antibiotic. It is used to treat urinary tract infections. How should I use this medicine? Take this medicine by mouth with a glass of water. Follow the directions on the prescription label. Take this medicine with food or milk. Take your doses at regular intervals. Do not take your medicine more often than directed. Do not stop taking except on your doctor's advice. Talk to your v belt curer regarding the use of this medicine in children. While this drug may be prescribed for selected conditions, precautions do apply. What side effects may I notice from receiving this medicine? Side effects that you should report to your doctor or health skin care instructor as soon as possible: allergic reactions like skin rash or hives, swelling of the face, lips, or tongue chest pain cough difficulty breathing dizziness, drowsiness fever or infection joint aches or pains pale or blue-tinted skin redness, blistering, peeling or loosening of the skin, including inside the mouth tingling, burning, pain, or numbness in hands or feet unusual bleeding or bruising unusually weak or tired yellowing of eyes or skin Side effects that usually do not require medical attention (report to your doctor or health skin care instructor if they continue or are bothersome): dark urine diarrhea headache loss of appetite nausea or vomiting temporary hair loss What may interact with this medicine? antacids containing magnesium trisilicate probenecid quinolone antibiotics like ciprofloxacin, lomefloxacin, norfloxacin and ofloxacin sulfinpyrazone What if I miss a dose? If you miss a dose, take it as soon as you can. If it is almost time for your next dose, take only that dose. Do not take double or extra doses. Where should I keep my medicine? Keep out of the reach of children. Store at room temperature between 15 and 30 degrees C (59 and 86 degrees F). Protect from light. Throw away any unused medicine after the expiration date. What should I tell my health care provider before I take this medicine? They need to know if you have any of these conditions: anemia diabetes [id number] dehydrogenase deficiency kidney disease liver disease lung disease other chronic illness an unusual or allergic reaction to nitrofurantoin, other antibiotics, other medicines, foods, dyes or preservatives or trying to get breast-feeding What should I watch for while using this medicine? Tell your doctor or health skin care instructor if your symptoms do not improve or if you get new symptoms. Drink several glasses of water a day. If you are taking this medicine for a long time, visit your doctor for regular checks on your progress. If you are diabetic, you may get a false positive result for sugar in your urine with certain brands of urine tests. Check with your doctor. Nitroglycerin Sublingual/Translingual spray What is this medicine? NITROGLYCERIN (mohsen troe GLI ser in) is a type of vasodilator. It relaxes blood vessels, increasing the blood and oxygen supply to your heart. This medicine is used to prevent or relieve chest pain caused by angina. How should I use this medicine? This medicine is only for use in the mouth. Use at the first sign of an attack. You can also use this medicine 5 to 10 minutes before an event likely to produce chest pain. Follow the directions on the prescription label. Do not shake the container. Remove the plastic cover. Before using this medicine for the first time, you must prime the bottle by spraying the pump 5 times into the air away from yourself. If this medicine has not been used for 6 weeks, you must reprime the bottle by spraying once into the air away from yourself. Hold the container upright and spray either onto or underneath the tongue. Do not breathe in the spray. After each spray, close your mouth but do not swallow or rinse. Your symptoms should improve in 1 to 5 minutes. You can repeat the dose every 5 minutes for up to three doses. If you do not feel better after 1 dose, contact your doctor or health skin care instructor immediately or have someone take you straight to an emergency room. Do not take your medicine more often than directed. If you take this medicine often to relieve symptoms of angina, your doctor or health skin care instructor may provide you with different instructions to manage your symptoms. If symptoms do not go away after following these instructions, it is important to call [phone]--1 immediately. Do not take more than 3 doses over 15 minutes. Talk to your v belt curer regarding the use of this medicine in children. Special care may be needed. What side effects may I notice from receiving this medicine? Side effects that you should report to your doctor or health skin care instructor as soon as possible: blurred vision dry mouth skin rash sweating the feeling of extreme pressure in the head unusually weak or tired Side effects that usually do not require medical attention (report to your doctor or health skin care instructor if they continue or are bothersome): flushing of the face or neck headache irregular heartbeat, palpitations nausea, vomiting What may interact with this medicine? Do not take this medicine with any of the following medications: certain migraine medicines like ergotamine and dihydroergotamine (DHE) medicines used to treat erectile dysfunction like sildenafil, tadalafil, and vardenafil This medicine may also interact with the following medications: medicines for high blood pressure What if I miss a dose? This does not apply. This medicine is only used as needed. Where should I keep my medicine? Keep out of the reach of children. Store at room temperature between 15 and 30 degrees C (59 and 86 degrees F). Do not spray near flames. Do not forcefully open or burn the container. Throw away any unused medicine after the expiration date. What should I tell my health care provider before I take this medicine? They need to know if you have any of these conditions: liver disease recent heart attack an unusual or allergic reaction to nitroglycerin, other medicines, foods, dyes, or preservatives or trying to get breast-feeding What should I watch for while using this medicine? Tell your doctor or health skin care instructor if you feel your medicine is no longer working. Keep this medicine with you at all times. Sit or lie down when you take your medicine to prevent falling if you feel dizzy or faint after using it. Try to remain calm. This will help you to feel better faster. If you feel dizzy, take several deep breaths and lie down with your feet propped up, or bend forward with your head resting between your knees. You may get drowsy or dizzy. Do not drive, use machinery, or do anything that needs mental alertness until you know how this drug affects you. Do not stand or sit up quickly, especially if you are an older patient. This reduces the risk of dizzy or fainting spells. Alcohol can make you more drowsy and dizzy. Avoid alcoholic drinks. Do not treat yourself for coughs, colds, or pain while you are taking this medicine without asking your doctor or health skin care instructor for advice. Some ingredients may increase your blood pressure. Warfarin Sodium Oral tablet What is this medicine? WARFARIN (WAR far in) is an anticoagulant. It is used to treat or prevent clots in the veins, arteries, lungs, or heart. How should I use this medicine? Take this medicine by mouth with a glass of water. Follow the directions on the prescription label. You can take this medicine with or without food. Take your medicine at the same time each day. Do not take it more often than directed. Do not stop taking except on your doctor's advice. Stopping this medicine may increase your risk of a blood clot. Be sure to refill your prescription before you run out of medicine. If your doctor or healthcare professional calls to change your dose, write down the dose and any other instructions. Always read the dose and instructions back to him or her to make sure you understand them. Tell your doctor or healthcare professional what strength of tablets you have on hand. Ask how many tablets you should take to equal your new dose. Write the date on the new instructions and keep them near your medicine. If you are told to stop taking your medicine until your next blood test, call your doctor or healthcare professional if you do not hear anything within 24 hours of the test to find out your new dose or when to restart your prior dose. A special MedGuide will be given to you by the pharmacist with each prescription and refill. Be sure to read this information carefully each time. Talk to your v belt curer regarding the use of this medicine in children. Special care may be needed. What side effects may I notice from receiving this medicine? Side effects that you should report to your doctor or health skin care instructor as soon as possible: back pain chills dizziness fever heavy menstrual bleeding or vaginal bleeding painful, blue, or purple toes painful, prolonged erection signs and symptoms of bleeding such as bloody or black, tarry stools; red or dark-brown urine; spitting up blood or brown material that looks like coffee grounds; red spots on the skin; unusual bruising or bleeding from the eye, gums, or nose-skin rash, itching or skin damage stomach pain unusually weak or tired yellowing of skin or eyes Side effects that usually do not require medical attention (report to your doctor or health skin care instructor if they continue or are bothersome): diarrhea hair loss What may interact with this medicine? Do not take this medicine with any of the following medications: agents that prevent or dissolve blood clots aspirin or other salicylates danshen dextrothyroxine mifepristone Sangeehta's Wort red yeast rice This medicine may also interact with the following medications: acetaminophen agents that lower cholesterol alcohol allopurinol amiodarone antibiotics or medicines for treating bacterial, fungal or viral infections azathioprine barbiturate medicines for inducing sleep or treating seizures certain medicines for diabetes certain medicines for heart rhythm problems certain medicines for high blood pressure chloral hydrate cisapride disulfiram female hormones, including contraceptive or control pills general anesthetics herbal or dietary products like garlic, ginkgo, ginseng, green tea, or kava kava influenza virus vaccine male hormones medicines for mental depression or psychosis medicines for some types of cancer medicines for stomach problems methylphenidate NSAIDs, medicines for pain and inflammation, like ibuprofen or naproxen propoxyphene quinidine, quinine raloxifene seizure or epilepsy medicine like carbamazepine, phenytoin, and valproic acid steroids like cortisone and prednisone tamoxifen thyroid medicine tramadol vitamin c, vitamin e, and vitamin K zafirlukast zileuton What if I miss a dose? It is important not to miss a dose. If you miss a dose, call your healthcare provider. Take the dose as soon as possible on the same day. If it is almost time for your next dose, take only that dose. Do not take double or extra doses to make up for a missed dose. Where should I keep my medicine? Keep out of the reach of children. Store at room temperature between 15 and 30 degrees C (59 and 86 degrees F). Protect from light. Throw away any unused medicine after the expiration date. Do not flush down the toilet. What should I tell my health care provider before I take this medicine? They need to know if you have any of these conditions: alcoholism anemia bleeding disorders cancer diabetes heart disease high blood pressure history of bleeding in the gastrointestinal tract history of stroke or other brain injury or disease kidney or liver disease protein C deficiency protein S deficiency psychosis or dementia recent injury, recent or planned surgery or procedure an unusual or allergic reaction to warfarin, other medicines, foods, dyes, or preservatives or trying to get breast-feeding What should I watch for while using this medicine? Visit your doctor or health skin care instructor for regular checks on your progress. You will need to have a blood test called a PT/INR regularly. The PT/INR blood test is done to make sure you are getting the right dose of this medicine. It is important to not miss your appointment for the blood tests. When you first start taking this medicine, these tests are done often. Once the correct dose is determined and you take your medicine properly, these tests can be done less often. Notify your doctor or health skin care instructor and seek emergency treatment if you develop breathing problems; changes in vision; chest pain; severe, sudden headache; pain, swelling, warmth in the leg; trouble speaking; sudden numbness or weakness of the face, arm or leg. These can be signs that your condition has gotten worse. While you are taking this medicine, carry an identification card with your name, the name and dose of medicine(s) being used, and the name and phone number of your doctor or health skin care instructor or person to contact in an emergency. Do not start taking or stop taking any medicines or [id number] medicines except on the advice of your doctor or health skin care instructor. You should discuss your diet with your doctor or health skin care instructor. Do not make major changes in your diet. Vitamin K can affect how well this medicine works. Many foods contain vitamin K. It is important to eat a consistent amount of foods with vitamin K. Other foods with vitamin K that you should eat in consistent amounts are asparagus, basil, beef or pork liver, black eyed peas, broccoli, brussel sprouts, cabbage, chickpeas, cucumber with peel, green onions, green tea, okra, parsley, peas, thyme, and green leafy vegetables like beet greens, farhad greens, endive, kale, mustard greens, spinach, turnip greens, watercress, or certain lettuces like green leaf or sri. This medicine can cause defects or bleeding in an unborn child. Women of childbearing age should use effective control while taking this medicine. If a woman becomes while taking this medicine, she should discuss the potential risks and her options with her health skin care instructor. Avoid sports and activities that might cause injury while you are using this medicine. Severe falls or injuries can cause unseen bleeding. Be careful when using sharp tools or knives. Consider using an electric razor. Take special care brushing or flossing your teeth. Report any injuries, bruising, or red spots on the skin to your doctor or health skin care instructor. If you have an illness that causes vomiting, diarrhea, or fever for more than a few days, contact your doctor. Also check with your doctor if you are unable to eat for several days. These problems can change the effect of this medicine. Even after you stop taking this medicine, it takes several days before your body recovers its normal ability to clot blood. Ask your doctor or health skin care instructor how long you need to be careful. If you are going to have surgery or dental work, tell your doctor or health skin care instructor that you have been taking this medicine. You have been given the following additional information: Angina, Stable Bladder Infection, Female (Adult) Nitrofurantoin, Nitrofurantoin, Macrocrystalline Oral capsule Nitroglycerin Sublingual/Translingual spray Warfarin Sodium Oral tablet (Electronically signed by Javon Gordon MD 06/14/2017 22:29)
--- NOTE | 2017-06-14 22:29 | ED MED RECONCILIATION SUMMARY ---
Patient: TERI RAMIREZ Medication Reconciliation Report [facility] VisitID: [id number] [place] [address] 82y, F Registration Date/Time: 06/12/2017 Weight: 45.3 kg Height/Length: 66 in. BMI: 16.1 ALLERGIES: Cortisone, Penicillin The patient's Home Medications are listed below: CHANGE THE FOLLOWING MEDICATIONS TO: Warfarin Sodium Oral : 2.5 mg at bedtime CONTINUE TAKING THE FOLLOWING MEDICATIONS: Cerovite Senior Oral 1 tablet, daily Digoxin Oral (125 mcg) 1 tablet, daily Ferrous Sulfate Oral (325 (65 Fe) mg) 1 tablet, daily Furosemide Oral 20 mg, daily MetFORMIN HCl Oral (500 mg) 1/2 tablet, daily Metoprolol Succinate ER Oral (50 mg) 1 tablet, am THE FOLLOWING MEDICATIONS NEED TO BE RECONCILED: Nitroglycerin Translingual Omeprazole Oral (20 mg) 1 tablet, daily Spiriva HandiHaler Inhalation, daily-, is taking twice a day most days The source(s) of the original Home Medication information: Not obtained. The following Medications were given to the patient in the Emergency Department: Aspirin [PO] PO 325 mg, administered: 06/12/2017 8:29:00 AM Nitroglycerin [SL] SL 0.4 mg, administered: 06/12/2017 8:47:00 AM Lasix [IVP] IVP 20 mg, administered: 06/12/2017 9:01:00 AM Digoxin [PO] PO 0.125 mg, administered: 06/12/2017 9:52:00 AM Metoprolol [PO] PO 50 mg, administered: 06/12/2017 9:52:00 AM The following Medications were prescribed to the patient: Macrobid 100 mg: Take 1 capsule orally every 12 hours for 7 days. No refills. Substitution is permissible. -- Javon Gordon MD Nitrostat 0.4 mg: dissolve 1 tablet under tongue every 5 minutes as needed for chest pain. Dispense one hundred (100). No refills. Substitution is permissible. -- Javon Gordon MD Coumadin 2.5 mg: take 1 tablet orally every 24 hours. Dispense fifteen (15). No refills. Substitution is permissible. -- Javon Gordon MD
--- NOTE | 2017-06-14 22:29 | ED MED RECONCILIATION SUMMARY ---
Patient: TERI RAMIREZ Medication Reconciliation Report [facility] VisitID: [id number] [place] [address] 82y, F Registration Date/Time: 06/12/2017 Weight: 45.3 kg Height/Length: 66 in. BMI: 16.1 ALLERGIES: Cortisone, Penicillin The patient's Home Medications are listed below: CHANGE THE FOLLOWING MEDICATIONS TO: Warfarin Sodium Oral : 2.5 mg at bedtime CONTINUE TAKING THE FOLLOWING MEDICATIONS: Cerovite Senior Oral 1 tablet, daily Digoxin Oral (125 mcg) 1 tablet, daily Ferrous Sulfate Oral (325 (65 Fe) mg) 1 tablet, daily Furosemide Oral 20 mg, daily MetFORMIN HCl Oral (500 mg) 1/2 tablet, daily Metoprolol Succinate ER Oral (50 mg) 1 tablet, am THE FOLLOWING MEDICATIONS NEED TO BE RECONCILED: Nitroglycerin Translingual Omeprazole Oral (20 mg) 1 tablet, daily Spiriva HandiHaler Inhalation, daily-, is taking twice a day most days The source(s) of the original Home Medication information: Not obtained. The following Medications were given to the patient in the Emergency Department: Aspirin [PO] PO 325 mg, administered: 06/12/2017 8:29:00 AM Nitroglycerin [SL] SL 0.4 mg, administered: 06/12/2017 8:47:00 AM Lasix [IVP] IVP 20 mg, administered: 06/12/2017 9:01:00 AM Digoxin [PO] PO 0.125 mg, administered: 06/12/2017 9:52:00 AM Metoprolol [PO] PO 50 mg, administered: 06/12/2017 9:52:00 AM The following Medications were prescribed to the patient: Macrobid 100 mg: Take 1 capsule orally every 12 hours for 7 days. No refills. Substitution is permissible. -- Javon Gordon MD Nitrostat 0.4 mg: dissolve 1 tablet under tongue every 5 minutes as needed for chest pain. Dispense one hundred (100). No refills. Substitution is permissible. -- Javon Gordon MD Coumadin 2.5 mg: take 1 tablet orally every 24 hours. Dispense fifteen (15). No refills. Substitution is permissible. -- Javon Godron MD
--- NOTE | 2017-06-14 22:29 | ED DISCHARGE INSTRUCTIONS ---
Patient: TERI RAMIREZ General Instructions [facility] VisitID: [id number] Deangelo Rajput [place], [place] [id number], F Registration Date/Time: 06/12/2017 Chronic atrial fibrillation. Chronic congestive heart failure. Angina Abnormal tests: (subtherapeutic INR). Acute urinary tract infection. INSTRUCTIONS Avoid stimulants (such as cigarettes, coffee, cold medicines, sinus medicines, street drugs). Warnings: Further evaluation is necessary. GENERAL WARNINGS: Return or contact your physician immediately if your condition worsens or changes unexpectedly, if not improving as expected, or if other problems arise. Your Current Medications: CHANGE THE FOLLOWING MEDICATIONS TO: Warfarin Sodium Oral : 2.5 mg at bedtime. CONTINUE TAKING THE FOLLOWING MEDICATIONS: Cerovite Senior Oral : 1 tablet daily. Digoxin Oral : Tablet 125 mcg, 1 tablet daily. Ferrous Sulfate Oral : Tablet Delayed Release 325 (65 Fe) mg, 1 tablet daily. Furosemide Oral : 20 mg daily. MetFORMIN HCl Oral : Tablet 500 mg, 1/2 tablet daily. Metoprolol Succinate ER Oral : Tablet Extended Release 24 Hour 50 mg, 1 tablet am. Prescription Medications: Macrobid 100 mg: Take 1 capsule orally every 12 hours for 7 days. No refills. Substitution is permissible. Nitrostat 0.4 mg: dissolve 1 tablet under tongue every 5 minutes as needed for chest pain. Dispense one hundred (100). No refills. Substitution is permissible. Coumadin 2.5 mg: take 1 tablet orally every 24 hours. Dispense fifteen (15). No refills. Substitution is permissible. Understanding of the discharge instructions verbalized by patient. Follow-up with: Kayden Guevara MD, [facility], , [address] [place] [address], [id number] Follow up Monday in four days. Call for an appointment. Reason for referral: To check your Coumadin levelINR. ADDITIONAL INFORMATION Angina, Stable The chest discomfort you have experienced today appears to be coming from your hearta condition called angina. Angina is a pain in the heart due to poor blood flow from blockage by plaque in one or more of the small blood vessels that deliver oxygen to the heart muscle itself. Plaque is a fatty material made up of cholesterol and other particles that build up within the artery wall. Exercise, increased activity, emotional upset, or stress can trigger this pain. With proper treatment and lifestyle changes to reduce risk factors, most people with angina are able to maintain a full and active life. Angina is not a heart attack. But if angina pain is severe or prolonged, it can lead to a heart attack, also called acute myocardial infarction, or AMI. Your angina is under control at this time. Therefore, it is safe for you to go home. Home Care Rest at home today and avoid any strenuous activity. Take medicine (usually nitroglycerin) for chest pain exactly as prescribed. Keep your nitroglycerin with you at all times. When taking nitroglycerin for angina, sit or lie down. The medication may make you feel dizzy. Place one tablet under your tongue, or between your lip and gum, or between your cheek and gum. Let the tablet dissolve completely; do not chew or swallow the tablet. If you use a spray, then spray once on orunder your tongue. Do not inhale. Close your mouth. Wait a few seconds before you swallow. After taking one tablet or spraying once, continue sitting or lying for 5 minutes. If the angina goes away completely, rest awhile and continue your normal routine. If the angina continues or gets worse, CALL 911 immediately. Do NOT delay. You may be having a heart attack! After you call 911, take a second tablet. Or, spray a second time. Wait another 5 minutes. If the angina still does not go away, take a third tablet, or spray a third time. Do not take more than 3 tablets, or spray more than 3 times, within 15 minutes. Stay on the phone with 911 for further instructions. Note: Your healthcare provider may give you slightly different instructions than those above. If so, follow them carefully. Prevention Learn how to take your own blood pressure. Keep a record of your results. Ask your doctor which readings mean that you need medical attention. Maintain a healthy weight. Get help to lose any extra pounds. Cut back on salt. Limit canned, dried, packaged, and fast foods. Dont add salt to your food at the table. Season foods with herbs instead of salt when you cook. Begin an exercise program. Ask your doctor how to get started. You can benefit from simple activities such as walking or gardening. Break the smoking habit. Enroll in a stop-smoking program to improve your chances of success. Avoid stressful situations. Learn stress-management techniques. Follow Up with your doctor as instructed. If an x-ray or ECG (electrocardiogram) was done , it will be reviewed by another specialist. You will be notified of any new findings that may affect your care. Get Prompt Medical Attention if any of the following occur: Your pain recurs and is not relieved by your usual dose of nitroglycerin Shortness of breath or increased pain with breathing Angina with weakness, dizziness, fainting, heavy sweating, nausea, or vomiting A change in the type of pain: It feels different Becomes more severe Lasts longer or occurs more often Spreads to new areas (shoulder, arm, neck, jaw, or back) Less exertion required before the pain appears Extreme drowsiness, confusion Dizziness or vertigo (dizziness with spinning sensation) Weakness of an arm or leg or one side of the face Difficulty with speech or vision Bladder Infection,Female (Adult) A bladder infection ("cystitis" or "UTI") usually causes a constant urge to urinate and a burning when passing urine. Urine may be cloudy, smelly or dark. There may be pain in the lower abdomen. A bladder infection occurs when bacteria from the vaginal area enter the bladder opening (urethra). This can occur from sexual intercourse, wearing tight clothing, dehydration and other factors. Home Care: Drink lots of fluids (at least 6-8 glasses a day, unless you must restrict fluids for other medical reasons). This will force the medicine into your urinary system and flush the bacteria out of your body. Avoid sexual intercourse until your symptoms are gone. Avoid caffeine, alcohol and spicy foods. These can irritate the bladder. A bladder infection is treated with antibiotics. You may also be given Pyridium (generic = phenazopyridine) to reduce the burning sensation. This medicine will cause your urine to become a bright orange color. The orange urine may stain clothing. You may wear a pad or panty-liner to protect clothing. Preventing Future Infections: Always wipe from front to back after a bowel movement. Keep the genital area clean and dry. Drink plenty of fluids each day to avoid dehydration. Both sexual partners should wash before intercourse. Urinate right after intercourse to flush out the bladder. Wear cotton underwear and cotton-lined panty hose; avoid tight-fitting pants. If you are on control pills and are having frequent bladder infections, discuss with your doctor. Follow Up: Return to this facility or see your doctor if ALL symptoms are not gone after three days of treatment. Get Prompt Medical Attention if any of the following occur: Fever of 100.4F (38C) or higher, or as directed by your healthcare provider No improvement by the third day of treatment Increasing back or abdominal pain Repeated vomiting; unable to keep medicine down Weakness, dizziness or fainting Vaginal discharge Pain, redness or swelling in the labia (outer vaginal area) Nitrofurantoin, Nitrofurantoin, Macrocrystalline Oral capsule What is this medicine? NITROFURANTOIN (mohsen troe fyoor AN toyn) is an antibiotic. It is used to treat urinary tract infections. How should I use this medicine? Take this medicine by mouth with a glass of water. Follow the directions on the prescription label. Take this medicine with food or milk. Take your doses at regular intervals. Do not take your medicine more often than directed. Do not stop taking except on your doctor's advice. Talk to your credit relationship manager regarding the use of this medicine in children. While this drug may be prescribed for selected conditions, precautions do apply. What side effects may I notice from receiving this medicine? Side effects that you should report to your doctor or health child care lead teacher as soon as possible: allergic reactions like skin rash or hives, swelling of the face, lips, or tongue chest pain cough difficulty breathing dizziness, drowsiness fever or infection joint aches or pains pale or blue-tinted skin redness, blistering, peeling or loosening of the skin, including inside the mouth tingling, burning, pain, or numbness in hands or feet unusual bleeding or bruising unusually weak or tired yellowing of eyes or skin Side effects that usually do not require medical attention (report to your doctor or health child care lead teacher if they continue or are bothersome): dark urine diarrhea headache loss of appetite nausea or vomiting temporary hair loss What may interact with this medicine? antacids containing magnesium trisilicate probenecid quinolone antibiotics like ciprofloxacin, lomefloxacin, norfloxacin and ofloxacin sulfinpyrazone What if I miss a dose? If you miss a dose, take it as soon as you can. If it is almost time for your next dose, take only that dose. Do not take double or extra doses. Where should I keep my medicine? Keep out of the reach of children. Store at room temperature between 15 and 30 degrees C (59 and 86 degrees F). Protect from light. Throw away any unused medicine after the expiration date. What should I tell my health care provider before I take this medicine? They need to know if you have any of these conditions: anemia diabetes wzypetf-[id number]-nocchntwg dehydrogenase deficiency kidney disease liver disease lung disease other chronic illness an unusual or allergic reaction to nitrofurantoin, other antibiotics, other medicines, foods, dyes or preservatives or trying to get breast-feeding What should I watch for while using this medicine? Tell your doctor or health child care lead teacher if your symptoms do not improve or if you get new symptoms. Drink several glasses of water a day. If you are taking this medicine for a long time, visit your doctor for regular checks on your progress. If you are diabetic, you may get a false positive result for sugar in your urine with certain brands of urine tests. Check with your doctor. Nitroglycerin Sublingual/Translingual spray What is this medicine? NITROGLYCERIN (mohsen troe GLI ser in) is a type of vasodilator. It relaxes blood vessels, increasing the blood and oxygen supply to your heart. This medicine is used to prevent or relieve chest pain caused by angina. How should I use this medicine? This medicine is only for use in the mouth. Use at the first sign of an attack. You can also use this medicine 5 to 10 minutes before an event likely to produce chest pain. Follow the directions on the prescription label. Do not shake the container. Remove the plastic cover. Before using this medicine for the first time, you must prime the bottle by spraying the pump 5 times into the air away from yourself. If this medicine has not been used for 6 weeks, you must reprime the bottle by spraying once into the air away from yourself. Hold the container upright and spray either onto or underneath the tongue. Do not breathe in the spray. After each spray, close your mouth but do not swallow or rinse. Your symptoms should improve in 1 to 5 minutes. You can repeat the dose every 5 minutes for up to three doses. If you do not feel better after 1 dose, contact your doctor or health child care lead teacher immediately or have someone take you straight to an emergency room. Do not take your medicine more often than directed. If you take this medicine often to relieve symptoms of angina, your doctor or health child care lead teacher may provide you with different instructions to manage your symptoms. If symptoms do not go away after following these instructions, it is important to call [phone] immediately. Do not take more than 3 doses over 15 minutes. Talk to your credit relationship manager regarding the use of this medicine in children. Special care may be needed. What side effects may I notice from receiving this medicine? Side effects that you should report to your doctor or health child care lead teacher as soon as possible: blurred vision dry mouth skin rash sweating the feeling of extreme pressure in the head unusually weak or tired Side effects that usually do not require medical attention (report to your doctor or health child care lead teacher if they continue or are bothersome): flushing of the face or neck headache irregular heartbeat, palpitations nausea, vomiting What may interact with this medicine? Do not take this medicine with any of the following medications: certain migraine medicines like ergotamine and dihydroergotamine (DHE) medicines used to treat erectile dysfunction like sildenafil, tadalafil, and vardenafil This medicine may also interact with the following medications: medicines for high blood pressure What if I miss a dose? This does not apply. This medicine is only used as needed. Where should I keep my medicine? Keep out of the reach of children. Store at room temperature between 15 and 30 degrees C (59 and 86 degrees F). Do not spray near flames. Do not forcefully open or burn the container. Throw away any unused medicine after the expiration date. What should I tell my health care provider before I take this medicine? They need to know if you have any of these conditions: liver disease recent heart attack an unusual or allergic reaction to nitroglycerin, other medicines, foods, dyes, or preservatives or trying to get breast-feeding What should I watch for while using this medicine? Tell your doctor or health child care lead teacher if you feel your medicine is no longer working. Keep this medicine with you at all times. Sit or lie down when you take your medicine to prevent falling if you feel dizzy or faint after using it. Try to remain calm. This will help you to feel better faster. If you feel dizzy, take several deep breaths and lie down with your feet propped up, or bend forward with your head resting between your knees. You may get drowsy or dizzy. Do not drive, use machinery, or do anything that needs mental alertness until you know how this drug affects you. Do not stand or sit up quickly, especially if you are an older patient. This reduces the risk of dizzy or fainting spells. Alcohol can make you more drowsy and dizzy. Avoid alcoholic drinks. Do not treat yourself for coughs, colds, or pain while you are taking this medicine without asking your doctor or health child care lead teacher for advice. Some ingredients may increase your blood pressure. Warfarin Sodium Oral tablet What is this medicine? WARFARIN (WAR far in) is an anticoagulant. It is used to treat or prevent clots in the veins, arteries, lungs, or heart. How should I use this medicine? Take this medicine by mouth with a glass of water. Follow the directions on the prescription label. You can take this medicine with or without food. Take your medicine at the same time each day. Do not take it more often than directed. Do not stop taking except on your doctor's advice. Stopping this medicine may increase your risk of a blood clot. Be sure to refill your prescription before you run out of medicine. If your doctor or healthcare professional calls to change your dose, write down the dose and any other instructions. Always read the dose and instructions back to him or her to make sure you understand them. Tell your doctor or healthcare professional what strength of tablets you have on hand. Ask how many tablets you should take to equal your new dose. Write the date on the new instructions and keep them near your medicine. If you are told to stop taking your medicine until your next blood test, call your doctor or healthcare professional if you do not hear anything within 24 hours of the test to find out your new dose or when to restart your prior dose. A special MedGuide will be given to you by the pharmacist with each prescription and refill. Be sure to read this information carefully each time. Talk to your credit relationship manager regarding the use of this medicine in children. Special care may be needed. What side effects may I notice from receiving this medicine? Side effects that you should report to your doctor or health child care lead teacher as soon as possible: back pain chills dizziness fever heavy menstrual bleeding or vaginal bleeding painful, blue, or purple toes painful, prolonged erection signs and symptoms of bleeding such as bloody or black, tarry stools; red or dark-brown urine; spitting up blood or brown material that looks like coffee grounds; red spots on the skin; unusual bruising or bleeding from the eye, gums, or nose-skin rash, itching or skin damage stomach pain unusually weak or tired yellowing of skin or eyes Side effects that usually do not require medical attention (report to your doctor or health child care lead teacher if they continue or are bothersome): diarrhea hair loss What may interact with this medicine? Do not take this medicine with any of the following medications: agents that prevent or dissolve blood clots aspirin or other salicylates danshen dextrothyroxine mifepristone Sangeetha's Wort red yeast rice This medicine may also interact with the following medications: acetaminophen agents that lower cholesterol alcohol allopurinol amiodarone antibiotics or medicines for treating bacterial, fungal or viral infections azathioprine barbiturate medicines for inducing sleep or treating seizures certain medicines for diabetes certain medicines for heart rhythm problems certain medicines for high blood pressure chloral hydrate cisapride disulfiram female hormones, including contraceptive or control pills general anesthetics herbal or dietary products like garlic, ginkgo, ginseng, green tea, or kava kava influenza virus vaccine male hormones medicines for mental depression or psychosis medicines for some types of cancer medicines for stomach problems methylphenidate NSAIDs, medicines for pain and inflammation, like ibuprofen or naproxen propoxyphene quinidine, quinine raloxifene seizure or epilepsy medicine like carbamazepine, phenytoin, and valproic acid steroids like cortisone and prednisone tamoxifen thyroid medicine tramadol vitamin c, vitamin e, and vitamin K zafirlukast zileuton What if I miss a dose? It is important not to miss a dose. If you miss a dose, call your healthcare provider. Take the dose as soon as possible on the same day. If it is almost time for your next dose, take only that dose. Do not take double or extra doses to make up for a missed dose. Where should I keep my medicine? Keep out of the reach of children. Store at room temperature between 15 and 30 degrees C (59 and 86 degrees F). Protect from light. Throw away any unused medicine after the expiration date. Do not flush down the toilet. What should I tell my health care provider before I take this medicine? They need to know if you have any of these conditions: alcoholism anemia bleeding disorders cancer diabetes heart disease high blood pressure history of bleeding in the gastrointestinal tract history of stroke or other brain injury or disease kidney or liver disease protein C deficiency protein S deficiency psychosis or dementia recent injury, recent or planned surgery or procedure an unusual or allergic reaction to warfarin, other medicines, foods, dyes, or preservatives or trying to get breast-feeding What should I watch for while using this medicine? Visit your doctor or health child care lead teacher for regular checks on your progress. You will need to have a blood test called a PT/INR regularly. The PT/INR blood test is done to make sure you are getting the right dose of this medicine. It is important to not miss your appointment for the blood tests. When you first start taking this medicine, these tests are done often. Once the correct dose is determined and you take your medicine properly, these tests can be done less often. Notify your doctor or health child care lead teacher and seek emergency treatment if you develop breathing problems; changes in vision; chest pain; severe, sudden headache; pain, swelling, warmth in the leg; trouble speaking; sudden numbness or weakness of the face, arm or leg. These can be signs that your condition has gotten worse. While you are taking this medicine, carry an identification card with your name, the name and dose of medicine(s) being used, and the name and phone number of your doctor or health child care lead teacher or person to contact in an emergency. Do not start taking or stop taking any medicines or uhbl-qvu-tplzwal medicines except on the advice of your doctor or health child care lead teacher. You should discuss your diet with your doctor or health child care lead teacher. Do not make major changes in your diet. Vitamin K can affect how well this medicine works. Many foods contain vitamin K. It is important to eat a consistent amount of foods with vitamin K. Other foods with vitamin K that you should eat in consistent amounts are asparagus, basil, beef or pork liver, black eyed peas, broccoli, brussel sprouts, cabbage, chickpeas, cucumber with peel, green onions, green tea, okra, parsley, peas, thyme, and green leafy vegetables like beet greens, farhad greens, endive, kale, mustard greens, spinach, turnip greens, watercress, or certain lettuces like green leaf or sri. This medicine can cause defects or bleeding in an unborn child. Women of childbearing age should use effective control while taking this medicine. If a woman becomes while taking this medicine, she should discuss the potential risks and her options with her health child care lead teacher. Avoid sports and activities that might cause injury while you are using this medicine. Severe falls or injuries can cause unseen bleeding. Be careful when using sharp tools or knives. Consider using an electric razor. Take special care brushing or flossing your teeth. Report any injuries, bruising, or red spots on the skin to your doctor or health child care lead teacher. If you have an illness that causes vomiting, diarrhea, or fever for more than a few days, contact your doctor. Also check with your doctor if you are unable to eat for several days. These problems can change the effect of this medicine. Even after you stop taking this medicine, it takes several days before your body recovers its normal ability to clot blood. Ask your doctor or health child care lead teacher how long you need to be careful. If you are going to have surgery or dental work, tell your doctor or health child care lead teacher that you have been taking this medicine. You have been given the following additional information: Angina, Stable Bladder Infection, Female (Adult) Nitrofurantoin, Nitrofurantoin, Macrocrystalline Oral capsule Nitroglycerin Sublingual/Translingual spray Warfarin Sodium Oral tablet (Electronically signed by Javon Gordon MD 06/14/2017 22:29)
--- NOTE | 2017-06-14 22:29 | ED MAR SUMMARY ---
..... Medication Administration Record [facility] [address] [place] [address] Patient: TERI RAMIREZ Visit ID: [id number] 82y, F Weight: 45.3 kg Height/Length: 66 in BMI: 16.1 ALLERGIES: Cortisone, Penicillin Given 08:29 06/12/2017 Stewart Portillo RMariana Medication Administered: ASPIRIN [PO], Dose: 325 mg PO. Medication Ordered: Aspirin PO 325 mg (Do not crush or chew, NOW). Given 08:47 06/12/2017 Fabio De Jesus R.N. Medication Administered: NITROGLYCERIN [SL], Dose: 0.4 mg Tablets SL. Medication Ordered: NitroGLYCERIN SL 0.4 mg (x3 PRN Chest Pain). Given 09:01 06/12/2017 Fabio De Jesus R.N. Medication Administered: LASIX [IVP], Dose: 20 mg IVP over 2 minute(s), Site: #1 right AC. Medication Ordered: Lasix IV 20 mg (NOW). Given 09:52 06/12/2017 Fabio De Jesus R.N. Medication Administered: DIGOXIN [PO] (DIGOXIN), Dose: 0.125 mg Tablets PO. Medication Ordered: Digoxin PO 0.125 mg (NOW). Given 09:52 06/12/2017 Fabio De Jesus R.N. Medication Administered: METOPROLOL [PO], Dose: 50 mg Tablets PO. Medication Ordered: Metoprolol PO 50 mg (NOW).
== END 2017-06-12 10:25 | disposition home or self-care (01) ==
LOC: ED SRH 07:52
DX: I20.9 Angina pectoris, unspecified (principal); I48.2 Chronic atrial fibrillation; N39.0 Urinary tract infection, site not specified; R79.1 Abnormal coagulation profile; I50.9 Heart failure, unspecified; E11.9 Type 2 diabetes mellitus without complications; Z79.84 Long term (current) use of oral hypoglycemic drugs
CPT/HCPCS: 90004; 90100; 90148; 90469; 90616; 91320; 92235; 92530; 92610; 93020; 93140; 94001; 94060; 95059